=== PATIENT | male | born 1935 | race Caucasian/White ===

== ENCOUNTER 2019-01-06 10:51 | Inpatient (IN) | payer MEDICARE, OTHER, SELFPAY ==
[2019-01-06] VITALS (13 sets, daily range): BP systolic 157–221; BP diastolic 53–100; PULSE 54–77; RESP 11–18; TEMP 36.3–36.8; O2SAT 94–99; BMI 25.8; BMI 25.9
--- NOTE | 2019-01-06 | DI.ECHO.S_ITS ---
[place]---------+ [facility] +---------+ : : [address] : : : : [id number] : : : : Phone: [phone] Echocardiogram Report + + :Name: RODDY BARBOUR Study Date: 01/07/2019 Height: 66 in : :[facility] Exam Location: [facility] Weight: 160 lb : : Gender: Male BSA: 1.8 m2 : :: 1935 Age: 83 yrs BP: 147/69 mmHg: :Reason For Study: Elevated Troponin : :Ordering Physician: HOSPITALIST : :[facility] Performed By: Lashon Page : :Referring: ZAKI DEAL : + + Interpretation Summary The left ventricle is normal in size. The ejection fraction is estimated to be 60-65%. The right ventricle is normal in size and function. There is mild to moderate aortic regurgitation. There is mild tricuspid regurgitation. Right ventricular systolic pressure is estimated to be 30 mmHg plus the clinically estimated CVP which cannot be estimated on this exam. The ascending aorta is mildly enlarged. Procedure: A two-dimensional transthoracic echocardiogram with color flow and Doppler was performed. The study quality was technically adequate. There is no prior echocardiogram noted for this patient. The subcostal views were difficult to obtain and are suboptimal in quality. The patient was in normal sinus rhythm during the exam. Left Ventricle: The left ventricle is normal in size. Proximal septal thickening is noted. There is no echo evidence for significant left ventricular outflow tract obstruction. There is no thrombus. The ejection fraction is estimated to be 60-65%. There are no focal wall motion abnormalities. MV E/A: 1.2 Med Peak E' Fabián: 6.5 cm/sec E/E' med: 13.4. Right Ventricle: The right ventricle is normal in size and function. Atria: The left atrium is severely dilated. Right atrial size is normal. There is no Doppler evidence for an interatrial shunt. Mitral Valve: There is mild mitral annular calcification. There is trace mitral regurgitation. Aortic Valve: The aortic valve is trileaflet. The aortic valve opens well. There is no aortic valve stenosis. There is mild to moderate aortic regurgitation. Tricuspid Valve: The tricuspid valve is normal in structure and function. Right ventricular systolic pressure is estimated to be 30 mmHg plus the clinically estimated CVP which cannot be estimated on this exam. There is mild tricuspid regurgitation. Pulmonic Valve: The pulmonic valve is not well visualized. There is a trace or physiologic amount of pulmonic regurgitation. Great Vessels: The aortic root is normal size. The ascending aorta is mildly enlarged. The pulmonary is not well visualized. The inferior vena cava was not visualized. Pericardium/ Pleura There is no pericardial effusion. There is no pleural effusion. MMode/2D Measurements & Calculations LVIDd: 5.4 cm LVOT diam: 2.3 cm LVIDs: 3.4 cm Ao root diam: 3.7 cm FS: 36.3 % asc Aorta Diam: 4.0 cm EPSS: 0.06 cm IVSd: 0.97 cm LVPWd: 0.99 cm LV kirby. diameter/BSA (cm/m^2): 2.9 LV sys. diameter/BSA (cm/m^2): 1.9 LA A2 area: 28.7 cm2 RA long axis: 5.3 cm LA A4 area: 23.6 cm2 RA area: 17.7 cm2 LA length (vol): 5.7 cm RA vol: 50.1 ml LA vol: 100.9 ml RA : 27.6 ml/m2 LA vol index: 55.4 ml/m2 RVD1 (basal): 3.9 cm TAPSE: 2.3 cm Doppler Measurements & Calculations Ao V2 max: 146.6 cm/sec LVOT Max Fabián: 98.6 cm/sec Ao V2 mean: 103.7 cm/sec LV V1 max P.9 mmHg Ao max P.6 mmHg LV V1 VTI: 19.2 cm Ao mean P.7 mmHg ALBERT(I,D): 2.8 cm2 Ao V2 VTI: 29.3 cm ALBERT(V,D): 2.8 cm2 sev ratio: 0.65 ALBERT indexed to BSA (cm^2/m^2): 1.5 AI P1/2t: 455.8 msec AI dec slope: 276.6 cm/sec2 MV E max fabián: 87.4 cm/sec TR max fabián: 272.6 cm/sec MV A max fabián: 72.6 cm/sec TR max P.7 mmHg MV E/A: 1.2 PA V2 max: 96.0 cm/sec Med Peak E' Fabián: 6.5 cm/sec PA V2 mean: 76.2 cm/sec E/E' med: 13.4 PA mean P.5 mmHg Lat Peak E' Fabián: 11.8 cm/sec PA Accel Time: 0.13 sec E/E' lat: 7.4 E/e' average: 10.4 MV dec time: 0.17 sec MV P1/2t: 50.1 msec MV 2t max fabián: 87.7 cm/sec SV(LVOT): 81.3 ml MVA(2t): 4.4 cm2 Reading Physician:WILLIAM
--- NOTE | 2019-01-06 11:00 | DI.RAD.S_ITS ---
PROCEDURE: XR CHEST 1V INDICATIONS: weakness, stroke vs. HTN emergency TECHNIQUE: One view of the chest was acquired. COMPARISON: [facility], , CHEST 2 VIEW, 02/04/2017, 9:20. FINDINGS: Surgical changes and devices: None. Lungs and pleura: Lungs are clear. No pleural effusions or pneumothorax. Mediastinum: Mediastinal contours appear normal. Heart size is minimally prominent. Bones and chest wall: No suspicious bony lesions. Overlying soft tissues appear unremarkable. IMPRESSION: No acute pulmonary process. Dictated by: Roseanna Hancock M.D. on 01/06/2019 at 10:23 Approved by: Roseanna Hancock M.D. on 01/06/2019 at 10:23
--- NOTE | 2019-01-06 11:03 | DI.CT.S_ITS ---
PROCEDURE: CT HEAD/BRAIN WO CON INDICATIONS: stroke symptoms, NOT TPA candidate TECHNIQUE: Noncontrast 4.5 mm thick angled axial sections acquired from the foramen magnum to the vertex, with coronal and sagittal reformats. For radiation dose reduction, the following was used: automated exposure control, adjustment of mA and/or kV according to patient size. COMPARISON: [facility], CT, BRAIN W/O CONTRAST, 07/10/2007, 11:09. FINDINGS: Image quality: Excellent. CSF spaces: Basal cisterns are patent. No extra-axial fluid collections. The ventricles are symmetric in size and shape. Brain: No intracranial bleeds or masses. There is cerebral volume loss for age, with resultant ventricular and sulcal prominence. There are periventricular and deep white matter chronic small vessel ischemic changes. There is intracranial internal carotid artery atherosclerosis. Skull and face: Calvarium and visualized facial bones appear intact, without suspicious lesions. Sinuses: Visualized sinuses and mastoids are clear. IMPRESSION: 1. No acute intracranial process. 2. Mild to moderate atrophy and chronic microvascular ischemic changes. Dictated by: Roseanna Hancock M.D. on 01/06/2019 at 10:24 Approved by: Roseanna Hancock M.D. on 01/06/2019 at 10:34
[2019-01-06 11:20] LABS: Add Manual Diff / Slide Review NO; Basophils Absolute Auto 0 /uL (0-100); Basophils Percent Auto 0.8 % (0-2); Eosinophils Absolute Auto 100 /uL (0-450); Eosinophils Percent Auto 1.2 % (2-4); Hematocrit 41.3 % (41-53); Hemoglobin 14.1 g/dL (13.5-17.5); Lymphocytes Absolute Auto 1500 /uL (1100-4500); Lymphocytes Percent Auto 27.2 % (25-40); Mean Corpuscular HGB Conc 34.1 % (30-36); Mean Corpuscular Hemoglobin 31.9 PG (26-34); Mean Corpuscular Volume 93.4 fL (80-100); Monocytes Absolute Auto 600 /uL (0-900); Monocytes Percent Auto 11.8 % (3-14); Neutrophils Absolute Auto 3200 /uL (1500-7000); Platelet Count 240 X10^3/uL (150-400); Red Blood Cell Count 4.42 X10^6/uL (4.5-5.9); Red Cell Distribution Width 13.7 % (11.6-14.8); White Blood Cell Count 5.4 X10^3/uL (4.5-11.0)
[2019-01-06 11:26] LABS: Prothrombin Time 11.3 SECONDS (10.1-12.7)
[2019-01-06 11:29] LABS: PTT Partial Thromboplastin Tim 27 SECONDS (26.4-36.2)
--- NOTE | 2019-01-06 11:29 | ED_ITS ---
HPI - General Adult General Chief complaint: Hypertension Stated complaint: SENT PT OVER TO ER Time Seen by Provider: 01/06/19 10:57 Source: patient Mode of arrival: ambulatory Limitations: no limitations History of Present Illness HPI narrative: 83-year-old male nonsmoker with history of hypertension and hyperlipidemia presents at the request of his primary care provider for the evaluation of concerning neurologic symptoms including some trouble finding words, confusion, cloudy thoughts and possibly a weak right leg. In the office the patient's blood pressure was found to be 200. He was sent to the emergency department for further evaluation. The patient denies any headache or blurred vision, he is having no current speech problems. He denies any numbness, tingling or weakness of his extremities. He has no chest pain, shortness of breath or abdominal pain. He does have some vague back pain. He hasn't felt great in a few weeks, but after an episode of speech difficulty on Saturday which was witnessed by his daughter he called his PCP whom got him in promptly. Related Data Home Medications Medication Instructions Recorded Confirmed CoQ-10 1 cap PO DAILY 01/06/19 01/06/19 Vitamin B-12 1 tab SUBLINGUAL DAILY 01/06/19 01/06/19 Vitamin D3 1 cap PO DAILY 01/06/19 01/06/19 lisinopril-hydrochlorothiazide 1 tab PO DAILY 01/06/19 01/06/19 omega 9-rlk-hpa-fish oil [Fish Oil] 3,000 mg PO DAILY 01/06/19 01/06/19 rosuvastatin [Crestor] 5 mg PO DAILY 01/06/19 01/06/19 Allergies Allergy/AdvReac Type Severity Reaction Status Date / Time No Known Drug Allergies Allergy Verified 01/06/19 11:00 Review of Systems Constitutional Denies chills, Reports fatigue, Denies fever(s), Denies lethargy and Reports weakness Eyes Denies change in vision, Denies eye discharge, Denies irritation and Denies loss of vision ENT Ears, Nose, Mouth, and Throat: Denies change in voice, Denies neck pain and Denies sore throat Cardiovascular Denies chest pain, Denies irregular heart rhythm, Denies lightheadedness, Denies palpitations, Denies dyspnea, Denies dyspnea on exertion and Denies orthopnea Respiratory Denies cough, Denies dyspnea, Denies dyspnea on exertion and Denies wheezing Gastrointestinal Gastrointestinal: Denies abdominal pain, Denies change in bowel habits, Denies diarrhea, Denies nausea and Denies vomiting Genitourinary Denies hematuria, Denies flank pain, Denies urinary incontinence and Denies urinary urgency Musculoskeletal Denies neck pain Integumentary/Breasts Denies pruritus, Denies erythema, Denies rash and Denies wounds Neurologic Reports abnormal speech, Reports confusion, Denies loss of vision and Reports weakness Psychiatric Denies anxiety, Reports confusion, Denies depression, Denies homicidal ideation and Denies suicidal ideation Endocrine Reports fatigue and Denies palpitations Hematologic/Lymphatic Denies easy bruising Allergic/Immunologic Denies wheezing PFSH Social History Smoking Status: Never smoker Social History Smoking Status: Never smoker Exam Narrative Exam Narrative: GENERAL: 83-year-old male appears younger than stated age This is a well-nourished, well-developed patient, in mild distress. HEAD: Atraumatic. Normocephalic. No temporal or scalp tenderness. EYES: Pupils equal round and reactive. Extraocular motions intact. No scleral icterus. No injection or drainage. ENT: Nose without bleeding, purulent drainage or septal hematoma. Throat without erythema, tonsillar hypertrophy or exudate. Uvula midline. Airway patent. NECK: Trachea midline. No JVD or lymphadenopathy. Supple, nontender, no meningeal signs. CARDIOVASCULAR: Regular rate and rhythm without murmurs, gallops, or rubs. RESPIRATORY: Clear to auscultation. Breath sounds equal bilaterally. No wheezes, rales, or rhonchi. GASTROINTESTINAL: Abdomen soft, non-tender, nondistended. No hepato- splenomegaly, or palpable masses. No guarding. EXTREMITIES: No clubbing, cyanosis, or edema. No joint tenderness, effusion, or edema noted. BACK: Nontender without deformity or crepitance. No flank tenderness. NEURO: AOx3. SKIN: No rash or erythema. Initial Vital Signs Initial Vital Signs: Vital Signs Temperature 98.1 F 01/06/19 11:01 Pulse Rate 68 01/06/19 11:01 Respiratory Rate 18 01/06/19 11:01 Blood Pressure 221/62 H 01/06/19 11:01 Pulse Oximetry 96 01/06/19 11:01 Scores NIH Stroke Scale Level of Conciousness: Alert, keenly responsive Ask month/age: Answers both questions correctly. Open/close eyes, close hand: Performs both tasks correctly Best gaze horizontal: Normal Visual desouza: No visual loss Facial palsy: Normal symetrical movement Left arm drift: No drift for full 10 sec Right arm drift: No drift for full 10 sec Left leg drift: No drift for full 10 sec Right leg drift: No drift for full 10 sec Limb ataxia: Absent Sensory on face/arms/legs: Normal, no sensory loss Best language: No aphasia, normal Dysarthria: Normal Extinction or inattention: No abnormality Total NIH Stroke scale score: 0 Course Orders Ordered: ED Orders 01/06/19 11:00 XR chest 1V Stat 01/06/19 11:01 EKG-12 Lead Stat 01/06/19 11:03 CT head/brain wo con Stat 01/06/19 11:10 B Type Natriuretic Peptide Stat Basic Metabolic Panel Stat Complete Blood Count AUTO DIFF Stat Partial Thromboplastin Time Stat Prothrombin Time INR Stat Troponin I Stat 01/06/19 12:08 Potassium Stat Troponin I Stat Urine Culture Stat Urine Drug Screen, Rapid Stat Urine Microscopic Stat 01/06/19 13:08 Magnesium Stat Sodium Chloride (Normal Saline 0.9%) 1,000 mls @ 150 mls/hr IV CONT GABBY Last Admin: 01/06/19 11:35 Dose: 150 mls/hr Potassium Chloride 40 meq/ (Sodium Chloride) 520 mls @ 130 mls/hr IV NOW ONE Stop: 01/06/19 15:42 Last Admin: 01/06/19 12:08 Dose: 130 mls/hr Discontinued Medications Labetalol HCl (Trandate) 10 mg IV NOW ONE Stop: 01/06/19 11:43 Last Admin: 01/06/19 11:47 Dose: 10 mg Potassium Chloride (Potassium Chloride) 40 meq PO NOW ONE Stop: 01/06/19 11:44 Last Admin: 01/06/19 11:49 Dose: 40 meq Consultations Consultation #1: Discussed patient with the hospitalist who requests I consult w [facility] given elevated troponin prior to admitting patient here Consultation #2: Call to Cardiology at [facility] to discuss patient's elevated troponin. Dr. Mike suggest that the elevated troponin is most likely secondary to hypertensive emergency and that at this point focus is on hypokalemia. His recommendation is to continue to monitor blood pressure, troponin and potassium as well as ordering an echocardiogram. If the patient has any more classic cardiac findings or elevated troponins once echocardiogram was performed and potassium has normalized they would consider intervention. Vital Signs - 8 hr 01/06/19 11:01 01/06/19 11:34 01/06/19 11:47 Temperature 98.1 F Pulse Rate 68 74 77 Respiratory Rate 18 18 Blood Pressure 221/62 H 203/81 H Blood Pressure [Right Arm] 203/81 H Pulse Oximetry 96 99 01/06/19 12:00 01/06/19 12:02 01/06/19 12:30 Temperature Pulse Rate 56 L 59 L 54 L Respiratory Rate 11 L 14 Blood Pressure 159/72 H Blood Pressure [Right Arm] 159/72 H 179/80 H Pulse Oximetry 98 97 01/06/19 13:00 01/06/19 13:30 Temperature Pulse Rate 54 L 54 L Respiratory Rate 16 14 Blood Pressure Blood Pressure [Right Arm] 170/83 H 176/77 H Pulse Oximetry 99 99 Medical Decision Making Lab Data Result diagrams: 01/06/19 11:10 01/06/19 12:08 Lab Results 01/06/19 01/06/19 01/06/19 Range/Units 11:10 11:10 11:10 WBC 5.4 (4.5-11.0) X10^3/uL RBC 4.42 L (4.5-5.9) X10^6/uL Hgb 14.1 (13.5-17.5) g/dL Hct 41.3 (41-53) % MCV 93.4 (80-100) fL MCH 31.9 (26-34) PG MCHC 34.1 (30-36) % RDW 13.7 (11.6-14.8) % Plt Count 240 (150-400) X10^3/uL Neut % (Auto) 59.0 (50-75) % Lymph % (Auto) 27.2 (25-40) % [place] % (Auto) 11.8 (3-14) % Eos % (Auto) 1.2 L (2-4) % Baso % (Auto) 0.8 (0-2) % Neut # (Auto) 3200 (8474-4890) /uL Lymph # (Auto) 1500 (6341-5395) /uL [place] # (Auto) 600 (0-900) /uL Eos # (Auto) 100 (0-450) /uL Baso # (Auto) 0 (0-100) /uL PT 11.3 (10.1-12.7) SECONDS INR 1.0 (0.9-1.3) APTT 27 (26.4-36.2) SECONDS Sodium 142 (137-145) mmol/L Potassium 1.4 L* (3.4-5.1) mmol/L Chloride 86 L (98-107) mmol/L Carbon Dioxide 47 H* (22-32) mmol/L BUN 19 (9-20) mg/dL Creatinine 0.90 (0.66-1.25) mg/dL Estimated GFR > 60.0 (>60) mL/min BUN/Creatinine Ratio 21.1 (6-22) Glucose 92 (80-110) mg/dL Calcium 9.1 (8.4-10.2) mg/dL Troponin I 0.370 H* (0.01-0.034) ng/mL B-Natriuretic Peptide 221 H (<100) Urine RBC (0-5/HPF) Urine WBC (0-5/HPF) Ur Squamous Epith Cells Amorphous Sediment Urine Bacteria (None) Urine Mucus (Negative) Ur Culture Indicated? Urine Opiates Screen (Negative) Ur Oxycodone Screen (Negative) Urine Methadone Screen (Negative) Ur Barbiturates Screen (Negative) U Tricyclic Antidepress (Negative) Ur Phencyclidine Scrn (Negative) Ur Amphetamines Screen (Negative) U Methamphetamines Scrn (Negative) Ur MDMA Scrn (Ecstasy) (Negative) U Benzodiazepines Scrn (Negative) Urine Cocaine Screen (Negative) U Marijuana (THC) Screen (Negative) 01/06/19 01/06/19 01/06/19 Range/Units 12:08 12:08 12:08 WBC (4.5-11.0) X10^3/uL RBC (4.5-5.9) X10^6/uL Hgb (13.5-17.5) g/dL Hct (41-53) % MCV (80-100) fL MCH (26-34) PG MCHC (30-36) % RDW (11.6-14.8) % Plt Count (150-400) X10^3/uL Neut % (Auto) (50-75) % Lymph % (Auto) (25-40) % [place] % (Auto) (3-14) % Eos % (Auto) (2-4) % Baso % (Auto) (0-2) % Neut # (Auto) (3883-0245) /uL Lymph # (Auto) (7836-0023) /uL [place] # (Auto) (0-900) /uL Eos # (Auto) (0-450) /uL Baso # (Auto) (0-100) /uL PT (10.1-12.7) SECONDS INR (0.9-1.3) APTT (26.4-36.2) SECONDS Sodium (137-145) mmol/L Potassium 1.8 L* (3.4-5.1) mmol/L Chloride (98-107) mmol/L Carbon Dioxide (22-32) mmol/L BUN (9-20) mg/dL Creatinine (0.66-1.25) mg/dL Estimated GFR (>60) mL/min BUN/Creatinine Ratio (6-22) Glucose (80-110) mg/dL Calcium (8.4-10.2) mg/dL Troponin I 0.373 H* (0.01-0.034) ng/mL B-Natriuretic Peptide (<100) Urine RBC 1-5/hpf (0-5/HPF) Urine WBC 10-30/hpf H (0-5/HPF) Ur Squamous Epith Cells 0-1 /hpf Amorphous Sediment 1+ Urine Bacteria Many (>30) H (None) Urine Mucus 1+ H (Negative) Ur Culture Indicated? Specimen cultured Urine Opiates Screen Negative (Negative) Ur Oxycodone Screen Negative (Negative) Urine Methadone Screen Negative (Negative) Ur Barbiturates Screen Negative (Negative) U Tricyclic Antidepress Negative (Negative) Ur Phencyclidine Scrn Negative (Negative) Ur Amphetamines Screen Negative (Negative) U Methamphetamines Scrn Negative (Negative) Ur MDMA Scrn (Ecstasy) Negative (Negative) U Benzodiazepines Scrn Negative (Negative) Urine Cocaine Screen Negative (Negative) U Marijuana (THC) Screen Negative (Negative) Urine Dip Bedside Urine Glucose Negative Bedside Urine Bilirubin - Negative Bedside Urine Ketone ++ 40 Urine Specific Kiefer 1.010 Bedside Urine Occult Blood +/- Bedside Urine pH 7.5 Bedside Urine Protein +/- 15 Bedside Urine Urobilinogen - Negative Bedside Urine Nitrite - Negative Bedside Urine Leukocytes +/- 15 Esterase Point of care testing: Urine Dip Bedside Urine Glucose Negative Bedside Urine Bilirubin - Negative Bedside Urine Ketone ++ 40 Urine Specific Kiefer 1.010 Bedside Urine Occult Blood +/- Bedside Urine pH 7.5 Bedside Urine Protein +/- 15 Bedside Urine Urobilinogen - Negative Bedside Urine Nitrite - Negative Bedside Urine Leukocytes +/- 15 Esterase Critical Care Time Critical Care Time: Yes Total Critical Care Time: 30 Attestation: The high probability of a clinically significant, sudden or life threatening deterioration of the [cardiovascular] system(s) required my full and direct attention, intervention and personal management. The aggregate critical care time was [30] minutes. This time is in addition to time spent performing reported procedures but includes the following: [x] Data Review and interpretation [x] Patient assessment and monitoring of vital signs [x] Documentation [x] Medication orders and management Discharge Plan Departure Patient Disposition: Admitted As Inpatient Clinical Impression: Acute hypokalemia, Elevated troponin I level Hypertension Qualifiers: Hypertension type: essential hypertension Qualified Code(s): I10 - Essential (primary) hypertension Admit Date/Time: 01/06/19 14:28 Admit Provider: Verónica Mcdaniels
[2019-01-06 11:31] LABS: BUN Creatinine Ratio 21.1 (6-22); Blood Urea Nitrogen 19 mg/dL (9-20); Calcium 9.1 mg/dL (8.4-10.2); Chloride 86 mmol/L (98-107); Estimated Glomerular Filt Rate > 60.0 mL/min (>60); Glucose 92 mg/dL (80-110); HEMOLYSIS < 15 (0-50); Sodium 142 mmol/L (137-145)
[2019-01-06] MEDS: SODIUM CHLORIDE 0.9% 1,000 ML 150 ML IV (11:35)
[2019-01-06 11:42] LABS: B Type Natriuretic Peptide 221 (<100); Carbon Dioxide 47 mmol/L (22-32); Potassium 1.4 mmol/L (3.4-5.1)
[2019-01-06] MEDS: LABETALOL 20 MG/4 ML SYRINGE 10 MG IV (11:47)
[2019-01-06] MEDS: POTASSIUM CHLORIDE 20 MEQ/15 ML UDC 40 MEQ PO (11:49)
[2019-01-06] MEDS: POTASSIUM CHLORIDE 40 MEQ in SODIUM CHLORIDE 0.9% 500 ML 130 ML IV ×2 (12:08→19:27)
[2019-01-06 13:22] LABS: Urine Amphetamines Negative (Negative); Urine Barbiturates Negative (Negative); Urine Benzodiazepines Negative (Negative); Urine Cocaine Negative (Negative); Urine MDMA Negative (Negative); Urine Methadone Negative (Negative); Urine Methamphetamines Negative (Negative); Urine Morphine/Opi cutoff 2000 Negative (Negative); Urine Oxycodone Negative (Negative); Urine Phencyclidine Negative (Negative); Urine Tetrahydrocannabinol Negative (Negative); Urine Tricyclic Antidepressant Negative (Negative)
[2019-01-06 13:25] LABS: Amorphous Sediment Urine 1+; Bacteria Urine Many (>30); Culture Indicated Urine Specimen Cultured; Mucus Urine 1+ (Negative); RBC Urine 1-5/HPF (0-5/HPF); Squamous Epithelial Cell Urine 0-1 /HPF; WBC Urine 10-30/HPF (0-5/HPF)
[2019-01-06 13:32] LABS: HEMOLYSIS 15 (0-50)
[2019-01-06 13:37] LABS: Potassium 1.8 mmol/L (3.4-5.1)
[2019-01-06 13:49] LABS: Troponin I 0.373 ng/mL (0.01-0.034)
[2019-01-06 14:30] LABS: Magnesium 2.5 mg/dL (1.6-2.3)
--- NOTE | 2019-01-06 17:36 | P.HP_ITS ---
History of Present Illness Date Patient Seen: 01/06/19 Chief complaint: SENT PT OVER TO ER Narrative: Patient is a 83-year-old male previously healthy except for a history of hypertension hyperlipidemia and low back pain. Patient is fairly active and is in usual good health. About 5 weeks ago the patient developed upper respiratory infection. He had significant cough and shortness of breath. His symptoms resolved 2 weeks ago. He was seen in clinic in November and started on azithromycin benzoate and albuterol which improved his symptoms significantly. Although his upper respiratory symptoms improved he continued to have a poor appetite. He has since lost some weight although he was not trying to. Patient reports he just did not feel like he had a good sensation of taste. And was unmotivated to eat. The patient reports that on Saturday 2 days prior to add wished admission he was very weak. He had difficulty getting his words out. He was unable to ambulate because of generalized weakness. He denied any shortness of breath or chest pain. He had no nausea or vomiting. He denies any dysuria hematuria or pyuria. Patient reports history of prostate cancer and has frequent urination. He has had no night sweats or chills. He has not vomited blood. Had no bright red blood per rectum or black stool. Patient does report arthralgias which is chronic. He complained of pain in the right groin right leg area. That pain has improved. He also reports some intermittent low back pain which has also improved. Patient was seen and evaluated in the emergency room. He was found to have a markedly low potassium at 1.4. He was hypertensive with a blood pressure systolic of over 200. In addition his initial troponin was elevated at 0.37 and repeat remain the same. Patient is admitted at this time for further evaluation. Patient underwent a head CT in the emergency room which was e ssentially negative. Chest x-ray was negative for infiltrates as well. Patient History Medical History Hyperlipidemia (Acute) Hypertension (Acute) Low back pain (Acute) Prostate cancer (Acute) Surgical History S/P TURP (Acute) Family History Father Dementia Social History household members: spouse Smoking Status: Never smoker alcohol intake: former Family & Social History Family History Father Dementia Social History: household members spouse Prior Living Arrangements House Safety & Behavioral: Feels Safe in Current Yes Environment Been Physically Hurt or No Threatened By a Person Suicidal Ideation Description None Suicide Plan Description No Plan Tobacco & Substance use: Smoking Status Never smoker alcohol intake former Substance Use Type does not use Meds Home Medications Medication Instructions Recorded Confirmed Type CoQ-10 1 cap PO DAILY 01/06/19 01/06/19 History Vitamin B-12 1 tab SUBLINGUAL DAILY 01/06/19 01/06/19 History Vitamin D3 1 cap PO DAILY 01/06/19 01/06/19 History lisinopril-hydrochlorothiazide 1 tab PO DAILY 01/06/19 01/06/19 History omega [id number] oil [Fish Oil] 3,000 mg PO DAILY 01/06/19 01/06/19 History rosuvastatin [Crestor] 5 mg PO DAILY 01/06/19 01/06/19 History Allergies Allergy/AdvReac Type Severity Reaction Status Date / Time No Known Drug Allergies Allergy Verified 01/06/19 11:00 Review of Systems Review of Systems All systems reviewed & are unremarkable except as noted in HPI and below Exam Vital Signs (past 8 hours): - 01/06/19 11:01 01/06/19 11:34 01/06/19 11:47 Temperature 98.1 F Pulse Rate 68 74 77 Respiratory Rate 18 18 Blood Pressure 221/62 H 203/81 H Blood Pressure [Right Arm] 203/81 H Pulse Oximetry 96 99 01/06/19 12:00 01/06/19 12:02 01/06/19 12:30 Temperature Pulse Rate 56 L 59 L 54 L Respiratory Rate 11 L 14 Blood Pressure 159/72 H Blood Pressure [Right Arm] 159/72 H 179/80 H Pulse Oximetry 98 97 01/06/19 13:00 01/06/19 13:30 01/06/19 15:00 Temperature Pulse Rate 54 L 54 L 59 L Respiratory Rate 16 14 17 Blood Pressure Blood Pressure [Right Arm] 170/83 H 176/77 H 187/88 H Pulse Oximetry 99 99 99 01/06/19 16:00 Temperature 97.3 F L Pulse Rate 60 Respiratory Rate 16 Blood Pressure 207/100 H Blood Pressure [Right Arm] Pulse Oximetry 94 Oxygen Delivery Method Room Air Oxygen Flow Rate 1 Narrative Exam Narrative: Pleasant gentleman resting comfortably in no obvious distress HEENT: Normocephalic atraumatic, oropharynx reveals occasional white plaques on the lateral portion of the tongue. Neck is supple. There is no appreciable adenopathy Lungs: Clear to auscultation Cardiac exam: Regular rate and rhythm normal S1-S2 Abdomen: Soft nontender nondistended, no hepatosplenomegaly noted Extremities: 1+ edema on the right 2+ pulses bilaterally Skin exam no rash Neuro exam: Cranial nerves 2-12 are intact strength is symmetric and equal at 5/5, sensation is grossly intact, reflexes are brisk and equal, gait is not ass essed speech is fluent patient is clear and coherent, there are no delusion or hallucinations. Objective Labs Result Diagrams: 01/06/19 11:10 01/06/19 12:08 Labs: Laboratory Results - last 24 hr 01/06/19 01/06/19 01/06/19 11:10 11:10 11:10 WBC 5.4 RBC 4.42 L Hgb 14.1 Hct 41.3 MCV 93.4 MCH 31.9 MCHC 34.1 RDW 13.7 Plt Count 240 Neut % (Auto) 59.0 Lymph % (Auto) 27.2 [place] % (Auto) 11.8 Eos % (Auto) 1.2 L Baso % (Auto) 0.8 Neut # (Auto) 3200 Lymph # (Auto) 1500 [place] # (Auto) 600 Eos # (Auto) 100 Baso # (Auto) 0 PT 11.3 INR 1.0 APTT 27 Sodium 142 Potassium 1.4 L* Chloride 86 L Carbon Dioxide 47 H* BUN 19 Creatinine 0.90 Estimated GFR > 60.0 BUN/Creatinine Ratio 21.1 Glucose 92 Calcium 9.1 Magnesium Troponin I 0.370 H* B-Natriuretic Peptide 221 H Urine RBC Urine WBC Ur Squamous Epith Cells Amorphous Sediment Urine Bacteria Urine Mucus Ur Culture Indicated? Urine Opiates Screen Ur Oxycodone Screen Urine Methadone Screen Ur Barbiturates Screen U Tricyclic Antidepress Ur Phencyclidine Scrn Ur Amphetamines Screen U Methamphetamines Scrn Ur MDMA Scrn (Ecstasy) U Benzodiazepines Scrn Urine Cocaine Screen U Marijuana (THC) Screen 01/06/19 01/06/1901/06/19 12:08 12:08 12:08 WBC RBC Hgb Hct MCV MCH MCHC RDW Plt Count Neut % (Auto) Lymph % (Auto) [place] % (Auto) Eos % (Auto) Baso % (Auto) Neut # (Auto) Lymph # (Auto) [place] # (Auto) Eos # (Auto) Baso # (Auto) PT INR APTT Sodium Potassium 1.8 L* Chloride Carbon Dioxide BUN Creatinine Estimated GFR BUN/Creatinine Ratio Glucose Calcium Magnesium Troponin I 0.373 H* B-Natriuretic Peptide Urine RBC 1-5/hpf Urine WBC 10-30/hpf H Ur Squamous Epith Cells 0-1 /hpf Amorphous Sediment 1+ Urine Bacteria Many (>30) H Urine Mucus 1+ H Ur Culture Indicated? Specimen cultured Urine Opiates Screen Negative Ur Oxycodone Screen Negative Urine Methadone Screen Negative Ur Barbiturates Screen Negative U Tricyclic Antidepress Negative Ur Phencyclidine Scrn Negative Ur Amphetamines Screen Negative U Methamphetamines Scrn Negative Ur MDMA Scrn (Ecstasy) Negative U Benzodiazepines Scrn Negative Urine Cocaine Screen Negative U Marijuana (THC) Screen Negative 01/06/19 13:08 WBC RBC Hgb Hct MCV MCH MCHC RDW Plt Count Neut % (Auto) Lymph % (Auto) [place] % (Auto) Eos % (Auto) Baso % (Auto) Neut # (Auto) Lymph # (Auto) [place] # (Auto) Eos # (Auto) Baso # (Auto) PT INR APTT Sodium Potassium Chloride Carbon Dioxide BUN Creatinine Estimated GFR BUN/Creatinine Ratio Glucose Calcium Magnesium 2.5 H Troponin I B-Natriuretic Peptide Urine RBC Urine WBC Ur Squamous Epith Cells Amorphous Sediment Urine Bacteria Urine Mucus Ur Culture Indicated? Urine Opiates Screen Ur Oxycodone Screen Urine Methadone Screen Ur Barbiturates Screen U Tricyclic Antidepress Ur Phencyclidine Scrn Ur Amphetamines Screen U Methamphetamines Scrn Ur MDMA Scrn (Ecstasy) U Benzodiazepines Scrn Urine Cocaine Screen U Marijuana (THC) Screen Assessment & Plan (1) Acute hypokalemia: Problem details: Acute hypokalemia, present on admission. Suspect this is related to his prior illness of the URI in addition to hydrochlorothiazide associated with his lisin opril. At this time will replace potassium. Magnesium level is normal. Will continue to monitor closely. Current visit: Yes Status: Acute (2) Type 2 myocardial infarction: Problem details: Patient with elevated troponin in the setting of hypertension. Suspect demand ischemia. Will continue to trend troponin and check cardiac echo. This is present on admission. Current visit: Yes Status: Acute (3) Hypertension: Problem details: Hypertension, chronic markedly elevated at this time. Etiology unclear. Will continue lisinopril, add amlodipine, use IV Trandate at this time. Qualifiers: Hypertension type: essential hypertension Qualified Code(s): I10 - Essential (primary) hypertension Current visit: Yes Status: Acute (4) Weakness: Problem details: Weakness, suspect related to his hypokalemia will ask PT for consultation. Current visit: Yes Status: Acute Assessment & Plan narrative: Right leg pain, with right leg edema. Will obtain duplex ultrasound the right lower extremity rule out DVT. Patient reports he is a full code. Will note that his record accordingly. Quality VTE Deep Vein Thrombosis/Pulmonary Embolism Present on Admission: No
[2019-01-06] MEDS: LISINOPRIL 20 MG TABLET PO (18:00)
[2019-01-06] MEDS: AMLODIPINE 5 MG TABLET PO (18:00)
[2019-01-06] MEDS: CEFTRIAXONE 1 GM/50 ML FROZ.PIGGY IV (18:01)
[2019-01-06] MEDS: NYSTATIN SUSP 500,000 UNIT/5 ML UDC 500000 UNIT PO ×2 (18:01→20:41)
[2019-01-06] MEDS: ENOXAPARIN 40 MG/0.4 ML SYRINGE SUBCUT (18:02)
[2019-01-06] MEDS: ACETAMINOPHEN 325 MG TABLET 650 MG PO (18:05)
[2019-01-06] MEDS: POTASSIUM CHLORIDE 20 MEQ in DEXTROSE 5%-LACTATED RINGERS 1,000 ML 125 MEQ IV (18:12)
[2019-01-06 18:32] LABS: BUN Creatinine Ratio 17.5 (6-22); Blood Urea Nitrogen 14 mg/dL (9-20); Calcium 8.2 mg/dL (8.4-10.2); Chloride 92 mmol/L (98-107); Estimated Glomerular Filt Rate > 60.0 mL/min (>60); Glucose 135 mg/dL (80-110); HEMOLYSIS < 15 (0-50); Sodium 142 mmol/L (137-145)
[2019-01-06 18:36] LABS: Potassium 1.6 mmol/L (3.4-5.1)
[2019-01-06 18:40] LABS: Carbon Dioxide 43 mmol/L (22-32)
[2019-01-06] MEDS: ROSUVASTATIN 10 MG TABLET 5 MG PO (20:41)
--- NOTE | 2019-01-06 22:48 | PC.NURSE ---
1545 - Pt to room from ER. Able to stand and ambulate to room, CGA. Denies lightheadedness. Steady gait. Pt oriented to room and routine. Reports onset of significant fatigue and word find difficulties on Saturday. Sent to ER from clinic. Pt hypertensive, 207/100, denies headache, denies chest pain. C/o dry mouth, tongue with thin white coating. Pt report cough and flu like symptoms over the last month. Seen at clinic and given medication although pt is unable to recall. monitoring tech SR/SB rate 50-60's, with first degree AVB and BBB. 96% on RA. Denies SOB. K-rider infusing. Dr. Mcdaniels notified of pt arrival. Oriented to room, routine and safety. Call light in reach.
[2019-01-07] VITALS (7 sets, daily range): BP systolic 141–155; BP diastolic 52–82; PULSE 54–76; RESP 12–18; TEMP 36.4–37.2; O2SAT 88–97
--- NOTE | 2019-01-07 | DI.CT.S_ITS ---
PROCEDURE: CT ABDOMEN WO/W CON INDICATIONS: adrenal adenoma TECHNIQUE: Noncontrast 3 mm thick sections acquired from the diaphragms to the iliac crests. After the administration of intravenous contrast, 3 mm thick venous-phase and 10-minute delayed images acquired from the diaphragms to the iliac crests. For radiation dose reduction, the following was used: automated exposure control, adjustment of mA and/or kV according to patient size. COMPARISON: None. FINDINGS: Image quality: Excellent. Lung bases: Lung bases are clear. Minimal bilateral pleural thickening. Heart size is normal. Adrenal glands: There is a small, 1 cm low density nodule at the inferior aspect of the right adrenal, likely an adrenal adenoma. The left adrenal is unremarkable. The Solid organs: Liver is normal in size and enhancement. Gallbladder is unremarkable. Biliary system is non dilated. Pancreas enhances normally. Spleen is normal in size and enhancement. Kidneys are normal in size and enhancement. No hydronephrosis or nephrolithiasis. Peritoneum and bowel: Unenhanced bowel loops are normal in caliber and wall thickness. No free fluid or air. Nodes and vessels: No retroperitoneal or mesenteric adenopathy by size criteria. Aorta and inferior vena cava are normal in size. Miscellaneous: No ventral hernias. Bones: No suspicious bony lesions. No vertebral body compression fractures. IMPRESSION: 1. Probable 1 cm inferior right adrenal adenoma. 2. Otherwise unremarkable study. Dictated by: Eliel Giordano M.D. on 01/07/2019 at 9:53 Approved by: Eliel Giordano M.D. on 01/07/2019 at 10:03
--- NOTE | 2019-01-07 | DI.US.S_ITS ---
PROCEDURE: US PERIPH VENOUS LOW EXTREM RT INDICATIONS: EDEMA TECHNIQUE: Real-time imaging, as well as color and pulse Doppler interrogation, were performed of the lower extremity deep veins from the inguinal ligament to the popliteal fossa. COMPARISON: None. FINDINGS: The common femoral, femoral and popliteal veins are normally compressible, and free of intraluminal thrombus. Color and pulse Doppler demonstrate normal phasic intraluminal flow. There is normal augmentation response to distal compression maneuver. IMPRESSION: No DVT found. Dictated by: Spenser Cummings M.D. on 01/07/2019 at 8:26 Approved by: Spenser Cummings M.D. on 01/07/2019 at 8:26
[2019-01-07 00:19] LABS: Chloride 94 mmol/L (98-107); HEMOLYSIS < 15 (0-50); Sodium 142 mmol/L (137-145)
[2019-01-07 00:24] LABS: Potassium 1.6 mmol/L (3.4-5.1)
[2019-01-07] MEDS: POTASSIUM CHLORIDE 40 MEQ in SODIUM CHLORIDE 0.9% 500 ML 130 ML IV (00:36)
[2019-01-07 00:37] LABS: Carbon Dioxide 43 mmol/L (22-32)
[2019-01-07 05:03] LABS: Add Manual Diff / Slide Review NO; Basophils Absolute Auto 0 /uL (0-100); Basophils Percent Auto 0.9 % (0-2); Eosinophils Absolute Auto 100 /uL (0-450); Eosinophils Percent Auto 2.6 % (2-4); Hematocrit 31.8 % (41-53); Lymphocytes Absolute Auto 1400 /uL (1100-4500); Lymphocytes Percent Auto 37.1 % (25-40); Mean Corpuscular HGB Conc 34.6 % (30-36); Mean Corpuscular Hemoglobin 32.1 PG (26-34); Mean Corpuscular Volume 92.8 fL (80-100); Monocytes Absolute Auto 500 /uL (0-900); Monocytes Percent Auto 12.2 % (3-14); Neutrophils Absolute Auto 1800 /uL (1500-7000); Neutrophils Percent Auto 47.2 % (50-75); Platelet Count 184 X10^3/uL (150-400); Red Blood Cell Count 3.42 X10^6/uL (4.5-5.9); White Blood Cell Count 3.8 X10^3/uL (4.5-11.0)
[2019-01-07 05:05] LABS: Alanine Aminotransferase 159 IU/L (21-72); Albumin 2.9 g/dL (3.5-5.0); Albumin Globulin Ratio 1.3 (1.0-2.8); Alkaline Phosphatase 39 U/L (38-126); Aspartate Aminotransferase 137 IU/L (17-59); BUN Creatinine Ratio 16.3 (6-22); Bilirubin Total 0.8 mg/dL (0.2-1.3); Blood Urea Nitrogen 13 mg/dL (9-20); Calcium 7.8 mg/dL (8.4-10.2); Chloride 96 mmol/L (98-107); Estimated Glomerular Filt Rate > 60.0 mL/min (>60); Globulin 2.3 g/dL (1.7-4.1); Glucose 88 mg/dL (80-110); HEMOLYSIS < 15 (0-50); Sodium 142 mmol/L (137-145); Total Protein 5.2 g/dL (6.3-8.2)
[2019-01-07 05:07] LABS: Potassium 1.7 mmol/L (3.4-5.1)
[2019-01-07 05:12] LABS: Carbon Dioxide 42 mmol/L (22-32)
[2019-01-07] MEDS: POTASSIUM CHLORIDE 20 MEQ/15 ML UDC 60 MEQ PO (06:38)
--- NOTE | 2019-01-07 06:55 | PC.NURSE ---
Patient is oriented x4, fatigued, denies chest pain, pressure, or dyspnea. 40meq K+ riders infused overnight, complete at 0530, K+ 1.7 this am, CO2 42, D5LR w/ 20Meq K+ at 125ml/hr resumed. Notified Radha MONAE about labs, orders received to give 60Meq PO potassium and send urine electrolytes.
[2019-01-07 07:36] LABS: Potassium Urine Random 21.5 mmol/L
[2019-01-07 07:38] LABS: Creatinine Urine Random 50.9 mg/dL; Sodium Urine Random 114 mmol/L (30-90)
[2019-01-07 08:37] LABS: Calcium Urine Random 7.4
--- NOTE | 2019-01-07 08:52 | P.PN_ITS ---
Subjective Date Patient Seen: 01/07/19 Interval history: 83 y/o male admitted to the hospital with weakness, hypert ension, and severe hypokalemia. Despite receiving 200 meq of potassium his potassium remains low. He denies shortness of breath or chest pain. He no longer feels weak but has not ambulated. blood pressure improved. Exam Vital Signs (past 8 hours): - 01/07/19 03:51 01/07/19 07:25 Temperature 98.0 F 97.6 F Pulse Rate 54 L 57 L Respiratory Rate 12 12 Blood Pressure 141/52 H 144/66 H Pulse Oximetry 94 96 Oxygen Delivery Method Nasal Cannula Oxygen Flow Rate 2 Narrative Exam Narrative: Pleasant male resting comfortably in no acute distress Lungs: clear to auscultation CV: RRR nl Sl S2 Abd: soft/ non tender/ non distended Ext: no edema Objective Labs Result Diagrams: 01/07/19 04:45 01/07/19 04:45 Labs: Laboratory Results - last 24 hr 01/06/19 01/06/19 01/06/19 11:10 11:10 11:10 WBC 5.4 RBC 4.42 L Hgb 14.1 Hct 41.3 MCV 93.4 MCH 31.9 MCHC 34.1 RDW 13.7 Plt Count 240 Neut % (Auto) 59.0 Lymph % (Auto) 27.2 [place] % (Auto) 11.8 Eos % (Auto) 1.2 L Baso % (Auto) 0.8 Neut # (Auto) 3200 Lymph # (Auto) 1500 [place] # (Auto) 600 Eos # (Auto) 100 Baso # (Auto) 0 PT 11.3 INR 1.0 APTT 27 Sodium 142 Potassium 1.4 L* Chloride 86 L Carbon Dioxide 47 H* BUN 19 Creatinine 0.90 Estimated GFR > 60.0 BUN/Creatinine Ratio 21.1 Glucose 92 Calcium 9.1 Magnesium Total Bilirubin AST ALT Alkaline Phosphatase Troponin I 0.370 H* B-Natriuretic Peptide 221 H Total Protein Albumin Globulin Albumin/Globulin Ratio Urine RBC Urine WBC Ur Squamous Epith Cells Amorphous Sediment Urine Bacteria Urine Mucus Ur Culture Indicated? Ur Random Sodium Ur Random Potassium Ur Random Calcium Urine Creatinine Nasal Screen MRSA (PCR) Urine Opiates Screen Ur Oxycodone Screen Urine Methadone Screen Ur Barbiturates Screen U Tricyclic Antidepress Ur Phencyclidine Scrn Ur Amphetamines Screen U Methamphetamines Scrn Ur MDMA Scrn (Ecstasy) U Benzodiazepines Scrn Urine Cocaine Screen U Marijuana (THC) Screen 01/06/19 01/06/19 01/06/19 12:08 12:08 12:08 WBC RBC Hgb Hct MCV MCH MCHC RDW Plt Count Neut % (Auto) Lymph % (Auto) [place] % (Auto) Eos % (Auto) Baso % (Auto) Neut # (Auto) Lymph # (Auto) [place] # (Auto) Eos # (Auto) Baso # (Auto) PT INR APTT Sodium Potassium 1.8 L* Chloride Carbon Dioxide BUN Creatinine Estimated GFR BUN/Creatinine Ratio Glucose Calcium Magnesium Total Bilirubin AST ALT Alkaline Phosphatase Troponin I 0.373 H* B-Natriuretic Peptide Total Protein Albumin Globulin Albumin/Globulin Ratio Urine RBC 1-5/hpf Urine WBC 10-30/hpf H Ur Squamous Epith Cells 0-1 /hpf Amorphous Sediment 1+ Urine Bacteria Many (>30) H Urine Mucus 1+ H Ur Culture Indicated? Specimen cultured Ur Random Sodium Ur Random Potassium Ur Random Calcium Urine Creatinine Nasal Screen MRSA (PCR) Urine Opiates Screen Negative Ur Oxycodone Screen Negative Urine Methadone Screen Negative Ur Barbiturates Screen Negative U Tricyclic Antidepress Negative Ur Phencyclidine Scrn Negative Ur Amphetamines Screen Negative U Methamphetamines Scrn Negative Ur MDMA Scrn (Ecstasy) Negative U Benzodiazepines Scrn Negative Urine Cocaine Screen Negative U Marijuana (THC) Screen Negative 01/06/19 01/06/19 01/06/19 13:08 15:45 18:15 WBC RBC Hgb Hct MCV MCH MCHC RDW Plt Count Neut % (Auto) Lymph % (Auto) [place] % (Auto) Eos % (Auto) Baso % (Auto) Neut # (Auto) Lymph # (Auto) [place] # (Auto) Eos # (Auto) Baso # (Auto) PT INR APTT Sodium 142 Potassium 1.6 L* Chloride 92 L Carbon Dioxide 43 H* BUN 14 Creatinine 0.80 Estimated GFR > 60.0 BUN/Creatinine Ratio 17.5 Glucose 135 H Calcium 8.2 L Magnesium 2.5 H Total Bilirubin AST ALT Alkaline Phosphatase Troponin I B-Natriuretic Peptide Total Protein Albumin Globulin Albumin/Globulin Ratio Urine RBC Urine WBC Ur Squamous Epith Cells Amorphous Sediment Urine Bacteria Urine Mucus Ur Culture Indicated? Ur Random Sodium Ur Random Potassium Ur Random Calcium Urine Creatinine Nasal Screen MRSA (PCR) Negative for mrsa Urine Opiates Screen Ur Oxycodone Screen Urine Methadone Screen Ur Barbiturates Screen U Tricyclic Antidepress Ur Phencyclidine Scrn Ur Amphetamines Screen U Methamphetamines Scrn Ur MDMA Scrn (Ecstasy) U Benzodiazepines Scrn Urine Cocaine Screen U Marijuana (THC) Screen 01/07/19 01/07/19 01/07/19 00:04 04:45 04:45 WBC 3.8 L RBC 3.42 L Hgb 11.0 L Hct 31.8 L MCV 92.8 MCH 32.1 MCHC 34.6 RDW 14.0 Plt Count 184 Neut % (Auto) 47.2 L Lymph % (Auto) 37.1 [place] % (Auto) 12.2 Eos % (Auto) 2.6 Baso % (Auto) 0.9 Neut # (Auto) 1800 Lymph # (Auto) 1400 [place] # (Auto) 500 Eos # (Auto) 100 Baso # (Auto) 0 PT INR APTT Sodium 142 142 Potassium 1.6 L* 1.7 L* Chloride 94 L 96 L Carbon Dioxide 43 H* 42 H* BUN 13 Creatinine 0.80 Estimated GFR > 60.0 BUN/Creatinine Ratio 16.3 Glucose 88 Calcium 7.8 L Magnesium Total Bilirubin 0.8 AST 137 H ALT 159 H Alkaline Phosphatase 39 Troponin I B-Natriuretic Peptide Total Protein 5.2 L Albumin 2.9 L Globulin 2.3 Albumin/Globulin Ratio 1.3 Urine RBC Urine WBC Ur Squamous Epith Cells Amorphous Sediment Urine Bacteria Urine Mucus Ur Culture Indicated? Ur Random Sodium Ur Random Potassium Ur Random Calcium Urine Creatinine Nasal Screen MRSA (PCR) Urine Opiates Screen Ur Oxycodone Screen Urine Methadone Screen Ur Barbiturates Screen U Tricyclic Antidepress Ur Phencyclidine Scrn Ur Amphetamines Screen U Methamphetamines Scrn Ur MDMA Scrn (Ecstasy) U Benzodiazepines Scrn Urine Cocaine Screen U Marijuana (THC) Screen 01/07/19 01/07/19 01/07/19 07:10 07:10 07:10 WBC RBC Hgb Hct MCV MCH MCHC RDW Plt Count Neut % (Auto) Lymph % (Auto) [place] % (Auto) Eos % (Auto) Baso % (Auto) Neut # (Auto) Lymph # (Auto) [place] # (Auto) Eos # (Auto) Baso # (Auto) PT INR APTT Sodium Potassium Chloride Carbon Dioxide BUN Creatinine Estimated GFR BUN/Creatinine Ratio Glucose Calcium Magnesium Total Bilirubin AST ALT Alkaline Phosphatase Troponin I B-Natriuretic Peptide Total Protein Albumin Globulin Albumin/Globulin Ratio Urine RBC Urine WBC Ur Squamous Epith Cells Amorphous Sediment Urine Bacteria Urine Mucus Ur Culture Indicated? Ur Random Sodium 114 H Ur Random Potassium 21.5 Ur Random Calcium 7.4 Urine Creatinine 50.9 Nasal Screen MRSA (PCR) Urine Opiates Screen Ur Oxycodone Screen Urine Methadone Screen Ur Barbiturates Screen U Tricyclic Antidepress Ur Phencyclidine Scrn Ur Amphetamines Screen U Methamphetamines Scrn Ur MDMA Scrn (Ecstasy) U Benzodiazepines Scrn Urine Cocaine Screen U Marijuana (THC) Screen Assessment & Plan (1) Weakness: Problem details: Weakness, suspect related to his hypokalemia will ask PT for consultation. Current visit: Yes Status: Acute (2) Type 2 myocardial infarction: Problem details: Patient with elevated troponin in the setting of hypertension. Suspect demand ischemia. Will continue to trend troponin and check cardiac echo. This is present on admission. Current visit: Yes Status: Acute (3) Hypertension: Problem details: Hypertension, chronic markedly elevated at this time. Etiology unclear. Will continue lisinopril, add amlodipine, use IV Trandate at this time. Qualifiers: Hypertension type: essential hypertension Qualified Code(s): I10 - Essential (primary) hypertension Current visit: Yes Status: Acute (4) Acute hypokalemia: Problem details: Acute hypokalemia, present on admission. Suspect this is related to his prior illness of the URI in addition to hydrochlorothiazide associated with his lisinopril. At this time will replace potassium. Magnesium level is normal. Will continue to monitor closely. Patient remains hypokalemic which is concerning. Will check CT of Abd/pelvis to r/o adenoma. Will also check serum aldosterone and renin level. These are send out labs and will take 6 days for results. Will continue to replace. Renal ultrasound obtained and is pending. Current visit: Yes Status: Acute Quality VTE Deep Vein Thrombosis/Pulmonary Embolism Present on Admission: No
[2019-01-07] MEDS: POTASSIUM CHLORIDE 80 MEQ in SODIUM CHLORIDE 0.9% 1,000 ML 130 ML IV (09:45)
[2019-01-07] MEDS: AMLODIPINE 5 MG TABLET PO (09:54)
[2019-01-07] MEDS: NYSTATIN SUSP 500,000 UNIT/5 ML UDC 500000 UNIT PO ×2 (09:54→22:19)
[2019-01-07] MEDS: LISINOPRIL 20 MG TABLET PO (09:54)
[2019-01-07 10:03] LABS: Troponin I 0.336 ng/mL (0.01-0.034)
--- NOTE | 2019-01-07 11:05 | PT.IIE ---
Current Diagnoses Hypokalemia (01/06/19) Essential (primary) hypertension (01/06/19) Myocardial infarction type 2 (01/06/19) Weakness (01/06/19) Surgical History (Last Updated 01/06/19 @ 17:31 by Verónica Mcdaniels MD) S/P TURP (Acute) Medical History (Last Updated 01/06/19 @ 17:30 by Verónica Mcdaniels MD) Hyperlipidemia (Acute) Hypertension (Acute) Low back pain (Acute) Prostate cancer (Acute) Physical Therapy Inpatient Evaluation/Re-Eval M1 PT/OT-IP Prior Functional Status Start: 01/07/19 10:37 Freq: NEEDED Status: Active Protocol: Document 01/07/19 10:55 EA (Rec: 01/07/19 10:57 EA [id number]) Medical Review Prior Functional Status Medical History Reviewed Yes Diet/Fluid Consistency Regular Communication Normal, alert, O x 3 Mobility and Gait Indepedent with no limitation Hunts regularly Prior Functional Level (Other details) Love to perform yard works Social History Household Members spouse Living Arrangements House Number of Stairs To Enter/Railing? None identified Home Environment Standard Height Toilet Employment Status Retired Additional Social History Comment Patient likes to hunts regularly Patient does yard work regulalrly Patient does walking > 2 miles M2 PT-IP Current Condition Start: 01/07/19 10:37 Freq: NEEDED Status: Active Protocol: Document 01/07/19 10:38 EA (Rec: 01/07/19 10:55 EA [id number]) Physical Therapy Current Condition Current Condition Evaluation Date 01/07/19 Treatment Diagnosis Severe hypokalemia, Weakness Onset Date 01/04/19 Weight Bearing Status Weight Bearing Status Full Weight Bearing M3 PT-IP Subjective Start: 01/07/19 10:37 Freq: NEEDED Status: Active Protocol: Document 01/07/19 10:38 EA (Rec: 01/07/19 10:55 EA [id number]) Subjective Physical Therapy Visit Type Type Initial Evaluation Visit Start Time 10:00 Visit Stop Time 10:30 Total Visit Minutes 30 Number of TYRE FITTER Visits 0 Physical Therapy Visit Comments Patient Comments Patient received ambulating from BR to his bed independently. Patient agreeable to be evaluated. Patient reports he is supposed to go for hunting this weekend. Patient reports weakness episodes in the last 4 weeks TYRE FITTER. He noted that mostly early in the morning were he had trouble getting up due to full body weakness. He stated that 2 days TYRE FITTER he had 2 hours of heavy yard work ; states his RN grand daughter noted his speech difficulty and that prompted to scheduled him for a doctor visit. Patient denies any chest pain on the last episode of speech problem. Patient Goals Get back to previous level of function M4 PT-IP Mobility and Gait Start: 01/07/19 10:37 Freq: NEEDED Status: Active Protocol: Document 01/07/19 10:38 EA (Rec: 01/07/19 10:55 EA [id number]) PT-Bed Mobility Assessment Supine to Sit Supine to Sit Independent Sit to Supine Sit to Supine Independent Scooting Scooting to Edge of Bed Independent PT-Transfer Assessment Sit to and From Stand Sit to and from Stand Independent Equipment Transfer Assistive Device None Transfers Transfer Destination Bed Toilet Transfer Technique stepping Transfer Ability Level of Assist Independent Standby Assistance Comments Mobility Comments Supervision only during transfers Gait Assessment Gait Gait Assistance Required: Independent Assistive Devices Assistive Device None Gait Deviations General Gait Pattern Within Normal Limits Comments Gait Comments Patient ambulated 120 ft with IV pole to use on right hand with SBA/supervision. Prior to assessment, patient was independent to in/out the BR. BP Before: 146/71, 92bpm BP during 155/70, 116bpm BP after 5 mins: 147/69, 112 bpm PT-Balance Assessment Sitting Balance and Reactions Static Sitting Balance Ability Normal Dynamic Sitting Balance Ability Normal Standing Balance and Reactions Static Standing Balance Ability Normal Dynamic Standing Balance Ability Good M5 PT-IP Objective Assessments Start: 01/07/19 10:37 Freq: NEEDED Status: Active Protocol: Document 01/07/19 10:38 EA (Rec: 01/07/19 10:55 EA [id number]) Orientation Orientation/Cognition Level of Alertness Alert Orientation Name Age Language Function Ability No Deficits Noted Safety Awareness Understands Safety Issues Memory Description No Deficits Noted Gross Range of Motion Upper Extremity ROM Assessment Within Functional Limits Lower Extremity ROM Assessment Within Functional Limits Strength Upper Extremity Strength Assessment Within Functional Limits Lower Extremity Strength Assessment Within Functional Limits Coordination Assessment Gross Coordination Gross Coordination WNL Sensation Assessment Sensation Gross Sensation WNL Light Touch Intact Proprioception (Position) Intact Muscle Tone Comments Muscle Tone Comments Normotonic Other Assessments Other Other Assessments Patient exhibits no limitation as to transfers and mobility. No noted any signs of weakness, instability, and or SOB during and after ambulation. Objective assessment reveals WFL as to ROM, strength, and sitting/ standing balance. Vitals sing were monitored before, during and after with negative results or with normal responses. Patient is not a good candidate for skilled PT at this time. Discharged to PT due to no limitation identified at this time. M6 PT-IP Treatment Start: 01/07/19 10:37 Freq: NEEDED Status: Active Protocol: Document 01/07/19 10:38 EA (Rec: 01/07/19 10:55 EA [id number]) Physical Therapy Treatment Education Education Provided Safety M7 PT-IP Assessment and Plan Start: 01/07/19 10:37 Freq: NEEDED Status: Active Protocol: Document 01/07/19 10:38 EA (Rec: 01/07/19 10:55 EA [id number]) PT Summary Assessment and Plan Potential Status of Condition at Evaluation Stable Frequency of Treatment Frequency Of Treatment Discharge
[2019-01-07 15:10] LABS: BUN Creatinine Ratio 17.1 (6-22); Blood Urea Nitrogen 12 mg/dL (9-20); Calcium 8.4 mg/dL (8.4-10.2); Carbon Dioxide 39 mmol/L (22-32); Chloride 99 mmol/L (98-107); Estimated Glomerular Filt Rate > 60.0 mL/min (>60); Glucose 126 mg/dL (80-110); HEMOLYSIS < 15 (0-50); Sodium 145 mmol/L (137-145)
[2019-01-07 15:12] LABS: Potassium 2.4 mmol/L (3.4-5.1)
[2019-01-07] MEDS: ACETAMINOPHEN 325 MG TABLET 650 MG PO (17:03)
[2019-01-07] MEDS: POTASSIUM CHLORIDE 20 MEQ TAB 60 MEQ PO ×2 (18:21→22:15)
[2019-01-07] MEDS: CEFTRIAXONE 1 GM/50 ML FROZ.PIGGY IV (18:54)
[2019-01-07] MEDS: ENOXAPARIN 40 MG/0.4 ML SYRINGE SUBCUT (19:00)
--- NOTE | 2019-01-07 19:20 | PC.NURSE ---
7170 - Dr. Mcdaniels notified of current lab results. K+ 2.4. Orders obtained. Pt resting in bed. Reports bilateral quad/thigh pain with activity. APAP given. IV saline locked. Discussed PO meds, pt agreeable to take with meal. Call light in reach.
[2019-01-08] VITALS (8 sets, daily range): BP systolic 145–182; BP diastolic 79–97; PULSE 55–67; RESP 10–20; TEMP 36.7–36.9; O2SAT 92–98
[2019-01-08] MEDS: ACETAMINOPHEN 325 MG TABLET 650 MG PO (01:49)
[2019-01-08 05:22] LABS: Alanine Aminotransferase 180 IU/L (21-72); Albumin 2.9 g/dL (3.5-5.0); Albumin Globulin Ratio 1.2 (1.0-2.8); Alkaline Phosphatase 42 U/L (38-126); Aspartate Aminotransferase 151 IU/L (17-59); BUN Creatinine Ratio 13.8 (6-22); Bilirubin Total 0.4 mg/dL (0.2-1.3); Blood Urea Nitrogen 11 mg/dL (9-20); Calcium 8.1 mg/dL (8.4-10.2); Chloride 103 mmol/L (98-107); Estimated Glomerular Filt Rate > 60.0 mL/min (>60); Globulin 2.4 g/dL (1.7-4.1); Glucose 93 mg/dL (80-110); HEMOLYSIS < 15 (0-50); Sodium 146 mmol/L (137-145); Total Protein 5.3 g/dL (6.3-8.2)
[2019-01-08 05:25] LABS: Potassium 2.3 mmol/L (3.4-5.1)
[2019-01-08 05:38] LABS: Carbon Dioxide 39 mmol/L (22-32)
[2019-01-08] MEDS: POTASSIUM CHLORIDE 20 MEQ/15 ML UDC 80 MEQ PO (07:53)
[2019-01-08] MEDS: NYSTATIN SUSP 500,000 UNIT/5 ML UDC 500000 UNIT PO (08:05)
[2019-01-08] MEDS: LISINOPRIL 20 MG TABLET PO (08:06)
[2019-01-08] MEDS: AMLODIPINE 5 MG TABLET PO ×2 (08:06→15:59)
[2019-01-08] MEDS: SODIUM CHLORIDE 0.9% FLUSH 10 ML IV (08:13)
[2019-01-08 09:41] LABS: Magnesium 2.4 mg/dL (1.6-2.3)
[2019-01-08 13:22] LABS: HEMOLYSIS < 15 (0-50); Potassium 3.4 mmol/L (3.4-5.1)
[2019-01-08] MEDS: POTASSIUM CHLORIDE 20 MEQ/15 ML UDC 40 MEQ PO (15:59)
--- NOTE | 2019-01-08 16:02 | P.DS_ITS ---
History of Present Illness Chief complaint: SENT PT OVER TO ER Narrative: Patient is a 83-year-old male previously healthy except for a history of hypertension hyperlipidemia and low back pain. Patient is fairly active and is in usual good health. About 5 weeks ago the patient developed upper respiratory infection. He had significant cough and shortness of breath. His symptoms resolved 2 weeks ago. He was seen in clinic in November and started on azithromycin benzoate and albuterol which improved his symptoms significantly. Although his upper respiratory symptoms improved he continued to have a poor appetite. He has since lost some weight although he was not trying to. Patient reports he just did not feel like he had a good sensation of taste. And was unmotivated to eat. The patient reports that on Saturday 2 days prior to add wished admission he was very weak. He had difficulty getting his words out. He was unable to ambulate because of generalized weakness. He denied any shortness of breath or chest pain. He had no nausea or vomiting. He denies any dysuria hematuria or pyuria. Patient reports history of prostate cancer and has frequent urination. He has had no night sweats or chills. He has not vomited blood. Had no bright red blood per rectum or black stool. Patient does report arthralgias which is chronic. He complained of pain in the right groin right leg area. That pain has improved. He also reports some intermittent low back pain which has also improved. Patient was seen and evaluated in the emergency room. He was found to have a markedly low potassium at 1.4. He was hypertensive with a blood pressure systolic of over 200. In addition his initial troponin was elevated at 0.37 and repeat remain the same. Patient is admitted at this time for further evaluation. Patient underwent a head CT in the emergency room which was essentially negative. Chest x-ray was negative for infiltrates as well. Discharge Providers Date of admission: 01/06/19 14:28 Discharge Date: 01/08/19 Primary care physician: Garfield Monroy MD Consults: 01/06/19 17:22 Consult to Physical Therapy Evaluate & Treat Comment: Physician Instructions: Evaluate and Treat 01/07/19 00:49 Consult to Respiratory Therapy Evaluate & Treat Comment: Physician Instructions: Evaluate and treat Discharge provider: Verónica Mcdaniels MD Summary Discharge Diagnosis: Hypokalemia, present on admission Volume depletion, present on admission Hypertension Hyperlipidemia Urinary tract infection, secondary to Klebsiella Pneumonia Hospital Course: The patient is a 83 y/o male who presented with profound weakness and found to have severe hypokalemia. He required multiple doses for ultimately improvement of his potassium. His blood pressure remained elevated. He was taken off the diuretics and amlodipine was added to his regimen. He underwent a CT of the abdomne which revelaed a 1 cm adenoma. He had an ultrasound of the veins which was negative for DVT. A consult was obtained from the [facility] Nephrology service. They recommended improved blood pressure control at this time. They felt it was very unlikely they he would have hyperaldosteronism. They further suggested additional work up for his hypertension to r/o renovascular hypertension if his blood pressure remained difficult to control. The patient felt better overall and was deemed appropraite for discharge home. The patient's potassium was 3.4 today. He was given an additional 40 meq KCL and will follow up with Dr. Monroy as an outpatient. Status at Discharge Cognitive/behavioral status at discharge: oriented Functional status at discharge: independent ambulation Overall status at discharge: patient is back to baseline Time Spent with Patient Less than 30 minutes Exam Vital Signs (past 8 hours): - 01/08/19 09:00 01/08/19 13:00 01/08/19 15:48 Temperature 98.1 F 98.1 F Pulse Rate 67 60 63 Respiratory Rate 10 L 14 20 Blood Pressure 160/97 H 145/96 H 182/82 H Pulse Oximetry 98 97 98 Oxygen Delivery Method Room Air Oxygen Flow Rate 0 Narrative Exam Narrative: Pleasant male Lungs: clear to auscultation CV: RRR nl Sl S2 Abd: soft/ non tender/ non distended Ext: no edema Objective Labs Result Diagrams: 01/07/19 04:45 01/08/19 13:00 Labs: Laboratory Results - last 24 hr 01/08/19 01/08/19 01/08/19 04:47 04:47 13:00 Sodium 146 H Potassium 2.3 L* 3.4 Chloride 103 Carbon Dioxide 39 H BUN 11 Creatinine 0.80 Estimated GFR > 60.0 BUN/Creatinine Ratio 13.8 Glucose 93 Calcium 8.1 L Magnesium 2.4 H Total Bilirubin 0.4 AST 151 H ALT 180 H Alkaline Phosphatase 42 Total Protein 5.3 L Albumin 2.9 L Globulin 2.4 Albumin/Globulin Ratio 1.2 Discharge Plan Discharge Plan Patient Disposition: Home Discharge Med Rec/Prescriptions Prescriptions: New lisinopril 20 mg Tablet 20 mg PO DAILY Qty: 30 RF: 0 levofloxacin 250 mg tablet 250 mg PO DAILY Qty: 7 RF: 0 amlodipine 10 mg tablet 10 mg PO DAILY Qty: 30 RF: 0 Continued rosuvastatin [Crestor] 5 mg Tablet 5 mg PO DAILY RF: 0 Vitamin D3 1 cap PO DAILY RF: 0 omega 8-fbi-kce-fish oil [Fish Oil] 1,000 mg (120 mg-180 mg) Capsule 3,000 mg PO DAILY RF: 0 CoQ-10 1 cap PO DAILY RF: 0 Vitamin B-12 1 tab Sublingual DAILY RF: 0 Discontinued lisinopril-hydrochlorothiazide 10-12.5 mg tablet 1 tab PO DAILY RF: 0 Follow up/Referrals: Garfield Monroy MD [Primary Care Provider] - Provider Discharge Instructions Diet: Diet as Tolerated and Low-sodium Activity: as tolerated Skin/Wound/Dressing Care Report to your healthcare provider any signs of infection, such as:: chills, fever and night sweats Discharge Data Primary Care Provider: Garfield Monroy V Attending Provider: Verónica Mcdaniels Admit Date/Time: 01/06/19 14:28 Quality VTE Deep Vein Thrombosis/Pulmonary Embolism Present on Admission: No
--- NOTE | 2019-01-08 16:50 | PC.NURSE ---
Pt discharged to home. IVs removed, cannula intact. Tele removed and cleaned. Received extra dose of Amlodipine 5mg po and potassium 40MEQs before discharge. BP 153/80, HR 63. States understanding of all discharge instructions and has all belongings. Will drive self home, MD campos. In not acute distress. Ambulated with MANAGER REVIEW to lobby.
--- NOTE | 2019-01-09 08:11 | CM.DPNOTE ---
Late Entry: Reviewed chart and discussed pt w/ RN yesterday before his DC. Met w/pt, explained role and pt in very good spirits, sitting up in chair. Pt explains he has all he needs at home and is very grateful for all he has, indp at baseline and returned to baseline yesterday. Pt expected no barriers to safe return home. Pt was cleared medically by Dr Mcdaniels yesterday and returned home w/family. NAILA
[2019-01-10 12:37] LABS: Plama Renin, LC/MS/MS 0.24 ng/mL/h (0.25-5.82)
== END 2019-01-08 16:54 | disposition home or self-care (01) | DRG 640 ==
LOC: ED 14:27 → AC 14:36 → ICU 01-07 12:11 → AC 01-08 16:28 → ICU 01-08 16:28
PROVIDERS: Nurse Practitioner Gerontology; Admitting Provider Internal Medicine; Emergency Provider Emergency Medicine; Family Provider Internal Medicine; PCP Internal Medicine; Visit Provider Internal Medicine
DX: E87.6 Hypokalemia (principal); I21.A1 Myocardial infarction type 2; R47.01 Aphasia; N39.0 Urinary tract infection, site not specified; I10 Essential (primary) hypertension; E78.5 Hyperlipidemia, unspecified; E86.9 Volume depletion, unspecified; B96.1 Klebsiella pneumoniae [K. pneumoniae] as the cause of diseases classified elsewhere; R41.0 Disorientation, unspecified
CPT/HCPCS: 36415; 36591; 70450; 71045; 74170; 80048; 80051; 80053; 80305; 81003; 81015; 82088; 82340; 82570; 83735; 83880; 84132; 84133; 84244; 84300; 84484; 85025; 85610; 85730; 87077; 87086; 87186; 87797; 93005; 93306; 93971; 96361; 96374; 97161; 97530; 99283; 99285; J1650; J3480; J7121; Q9967

== ENCOUNTER → 2019-01-12 15:11 | Outpatient (REF) | payer MEDICARE, OTHER, SELFPAY ==
[2019-01-06 15:57] VITALS: BMI 25.9
== END ==
LOC: LAB 15:11
PROVIDERS: Family Provider Internal Medicine; PCP Internal Medicine; Visit Provider Internal Medicine
DX: E87.6 Hypokalemia (principal)
CPT/HCPCS: 82088

== ENCOUNTER → 2019-01-14 09:20 | Outpatient (CLI) | payer MEDICARE, OTHER, SELFPAY ==
[2019-01-06 15:57] VITALS: BMI 25.9
[2019-01-14 10:52] LABS: HEMOLYSIS < 15 (0-50); Potassium 4.1 mmol/L (3.4-5.1)
== END ==
PROVIDERS: Family Provider Internal Medicine; PCP Internal Medicine; Visit Provider Internal Medicine
DX: R41.3 Other amnesia (principal)
CPT/HCPCS: 36415; 84132

== ENCOUNTER → 2019-01-21 15:16 | Outpatient (CLI) | payer MEDICARE, OTHER, SELFPAY ==
[2019-01-06 15:57] VITALS: BMI 25.9
[2019-01-21 16:32] LABS: Blood Urea Nitrogen 22 mg/dL (9-20); Calcium 10.1 mg/dL (8.4-10.2); Carbon Dioxide 24 mmol/L (22-32); Chloride 108 mmol/L (98-107); Estimated Glomerular Filt Rate > 60.0 mL/min (>60); Glucose 110 mg/dL (80-110); HEMOLYSIS < 15 (0-50); Potassium 5.1 mmol/L (3.4-5.1); Sodium 142 mmol/L (137-145)
[2019-01-24 09:27] LABS: Renin Activity 18.36 ng/mL/h (0.25-5.82)
== END ==
PROVIDERS: Family Provider Internal Medicine; PCP Internal Medicine
DX: E26.09 Other primary hyperaldosteronism (principal)
CPT/HCPCS: 36415; 80048; 82088; 84244

== ENCOUNTER → 2019-02-18 14:04 | Outpatient (CLI) | payer MEDICARE, OTHER, SELFPAY ==
[2019-01-06 15:57] VITALS: BMI 25.9
[2019-02-18 16:12] LABS: Blood Urea Nitrogen 17 mg/dL (9-20); Calcium 9.8 mg/dL (8.4-10.2); Carbon Dioxide 25 mmol/L (22-32); Chloride 106 mmol/L (98-107); Estimated Glomerular Filt Rate > 60.0 mL/min (>60); Glucose 81 mg/dL (80-110); HEMOLYSIS < 15 (0-50); Sodium 140 mmol/L (137-145)
[2019-02-22 20:14] LABS: Aldosterone/Renin Activity Rat 0.1 Ratio (0.9-28.9); Plama Renin, LC/MS/MS 18.45 ng/mL/h (0.25-5.82)
== END ==
PROVIDERS: PCP Internal Medicine; Visit Provider Internal Medicine Endocrinology, Diabetes & Metabolism
DX: E26.09 Other primary hyperaldosteronism (principal)
CPT/HCPCS: 36415; 80048; 82088; 84244

== ENCOUNTER → 2019-04-09 09:17 | Outpatient (CLI) | payer MEDICARE, OTHER, SELFPAY ==
[2019-01-06 15:57] VITALS: BMI 25.9
[2019-04-09 09:46] LABS: Blood Urea Nitrogen 25 mg/dL (9-20); Calcium 9.9 mg/dL (8.4-10.2); Carbon Dioxide 29 mmol/L (22-32); Chloride 105 mmol/L (98-107); Estimated Glomerular Filt Rate > 60.0 mL/min (>60); Glucose 93 mg/dL (80-110); HEMOLYSIS < 15 (0-50); Potassium 4.4 mmol/L (3.4-5.1); Sodium 141 mmol/L (137-145)
== END ==
PROVIDERS: Visit Provider Internal Medicine
DX: E87.6 Hypokalemia (principal)
CPT/HCPCS: 36415; 80048

== ENCOUNTER → 2019-04-10 11:47 | Outpatient (CLI) | payer MEDICARE, OTHER, SELFPAY ==
[2019-01-06 15:57] VITALS: BMI 25.9
--- NOTE | 2019-04-10 | DI.US.S_ITS ---
PROCEDURE: US CAROTID DOPPLER BI INDICATIONS: TIA TECHNIQUE: Color and pulse Doppler interrogation was performed of both carotid systems, with image documentation and velocity measurements. COMPARISON: None. FINDINGS: Stenosis calculations are based on SRU (Society of Radiologists in Ultrasound) criteria. The flow velocities and the arterial waveforms are normal within both carotid arterial systems. Atherosclerotic plaque is seen on both sides. The estimated degree of internal carotid artery stenosis is less than 50%. Antegrade flow is confirmed within both vertebral arteries. IMPRESSION: No hemodynamically significant stenosis is seen. Atherosclerotic plaque is noted bilaterally. Dictated by: Jacques Lindo M.D. on 04/10/2019 at 12:09 Approved by: Jacques Lindo M.D. on 04/10/2019 at 12:10
== END ==
PROVIDERS: Visit Provider Internal Medicine
DX: I65.23 Occlusion and stenosis of bilateral carotid arteries (principal)
CPT/HCPCS: 93880

== ENCOUNTER → 2019-06-24 08:36 | Outpatient (CLI) | payer MEDICARE, OTHER, SELFPAY ==
[2019-01-06 15:57] VITALS: BMI 25.9
[2019-06-24 09:46] LABS: BUN Creatinine Ratio 24.5 (6-22); Blood Urea Nitrogen 27 mg/dL (9-20); Carbon Dioxide 27 mmol/L (22-32); Chloride 106 mmol/L (98-107); Estimated Glomerular Filt Rate > 60.0 mL/min (>60); Glucose 93 mg/dL (80-110); HEMOLYSIS < 15 (0-50); Sodium 141 mmol/L (137-145)
== END ==
PROVIDERS: Visit Provider Internal Medicine
DX: I10 Essential (primary) hypertension (principal)
CPT/HCPCS: 36415; 80048

== ENCOUNTER → 2019-08-19 15:47 | Outpatient (ROUT) | payer MEDICARE, OTHER, SELFPAY ==
[2019-01-06 15:57] VITALS: BMI 25.9
[2019-08-19 16:05] LABS: Add Manual Diff / Slide Review NO; Basophils Absolute Auto 0 /uL (0-100); Eosinophils Absolute Auto 100 /uL (0-450); Eosinophils Percent Auto 2.2 % (2-4); Hematocrit 44.2 % (41-53); Lymphocytes Absolute Auto 1500 /uL (1100-4500); Lymphocytes Percent Auto 31.2 % (25-40); Mean Corpuscular Hemoglobin 32.3 PG (26-34); Monocytes Absolute Auto 400 /uL (0-900); Neutrophils Absolute Auto 2800 /uL (1500-7000); Neutrophils Percent Auto 57.6 % (50-75); Platelet Count 251 X10^3/uL (150-400); Red Blood Cell Count 4.65 X10^6/uL (4.5-5.9); Red Cell Distribution Width 13.8 % (11.6-14.8); White Blood Cell Count 4.8 X10^3/uL (4.5-11.0)
[2019-08-19 16:07] LABS: Alanine Aminotransferase 29 IU/L (21-72); Albumin 4.6 g/dL (3.5-5.0); Albumin Globulin Ratio 1.8 (1.0-2.8); Alkaline Phosphatase 46 U/L (38-126); Aspartate Aminotransferase 26 IU/L (17-59); BUN Creatinine Ratio 23.3 (6-22); Bilirubin Total 0.5 mg/dL (0.2-1.3); Blood Urea Nitrogen 21 mg/dL (9-20); Calcium 10.4 mg/dL (8.4-10.2); Carbon Dioxide 26 mmol/L (22-32); Chloride 105 mmol/L (98-107); Cholesterol 182 mg/dL (140-199); Estimated Glomerular Filt Rate > 60.0 mL/min (>60); Globulin 2.6 g/dL (1.7-4.1); Glucose 89 mg/dL (80-110); HDL Cholesterol 80 mg/dL (40-60); HEMOLYSIS < 15 (0-50); LDL Cholesterol Calculated 83 mg/dL (<100); Potassium 4.7 mmol/L (3.4-5.1); Sodium 141 mmol/L (137-145); Total Protein 7.2 g/dL (6.3-8.2); Triglycerides 97 mg/dL (35-150)
[2019-08-19 16:37] LABS: TSH w/ Reflex to FT4 2.74 uIU/mL (0.47-4.68)
== END ==
PROVIDERS: Visit Provider Internal Medicine
DX: R07.9 Chest pain, unspecified (principal); E78.2 Mixed hyperlipidemia
CPT/HCPCS: 80053; 80061; 84443; 85025

== ENCOUNTER → 2020-08-24 18:57 | Outpatient (ROUT) | payer MEDICARE, OTHER, SELFPAY ==
[2019-01-06 15:57] VITALS: BMI 25.9
[2020-08-24 19:27] LABS: Alanine Aminotransferase 20 IU/L (<50); Albumin 4.4 g/dL (3.5-5.0); Albumin Globulin Ratio 1.6 (1.0-2.8); Alkaline Phosphatase 41 U/L (38-126); Aspartate Aminotransferase 29 IU/L (17-59); BUN Creatinine Ratio 30.1 (6-22); Bilirubin Total 0.5 mg/dL (0.2-1.3); Blood Urea Nitrogen 25 mg/dL (9-20); Calcium 9.6 mg/dL (8.4-10.2); Carbon Dioxide 24 mmol/L (22-32); Chloride 108 mmol/L (98-107); Cholesterol 172 mg/dL (140-199); Estimated Glomerular Filt Rate > 60.0 mL/min (>60); Globulin 2.7 g/dL (1.7-4.1); Glucose 84 mg/dL (80-110); HDL Cholesterol 100 mg/dL (40-60); HEMOLYSIS 31 (0-50); LDL Cholesterol Calculated 54 mg/dL (<100); Magnesium 2.1 mg/dL (1.6-2.3); Potassium 4.7 mmol/L (3.4-5.1); Sodium 140 mmol/L (137-145); Total Protein 7.1 g/dL (6.3-8.2); Triglycerides 91 mg/dL (35-150)
[2020-08-24 19:34] LABS: Add Manual Diff / Slide Review NO; Basophils Absolute Auto 0 /uL (0-100); Basophils Percent Auto 0.3 % (0-2); Eosinophils Absolute Auto 100 /uL (0-450); Eosinophils Percent Auto 1.9 % (2-4); Hematocrit 42.1 % (41-53); Hemoglobin 13.9 g/dL (13.5-17.5); Lymphocytes Absolute Auto 1400 /uL (1100-4500); Lymphocytes Percent Auto 25.3 % (25-40); Mean Corpuscular Hemoglobin 32.2 PG (26-34); Mean Corpuscular Volume 97.5 fL (80-100); Monocytes Absolute Auto 500 /uL (0-900); Monocytes Percent Auto 9.3 % (3-14); Neutrophils Absolute Auto 3600 /uL (1500-7000); Neutrophils Percent Auto 63.2 % (50-75); Platelet Count 221 X10^3/uL (150-400); Red Blood Cell Count 4.32 X10^6/uL (4.5-5.9); Red Cell Distribution Width 13.6 % (11.6-14.8); White Blood Cell Count 5.6 X10^3/uL (4.5-11.0)
[2020-08-24 19:54] LABS: Prostate Specific Antigen < 0.064 ng/mL (0.10-4.00)
[2020-08-24 19:55] LABS: TSH w/ Reflex to FT4 2.62 uIU/mL (0.47-4.68)
[2020-08-24 20:13] LABS: Vitamin B12 827 pg/mL (239-931)
== END ==
PROVIDERS: Visit Provider Internal Medicine
DX: I10 Essential (primary) hypertension (principal); E78.2 Mixed hyperlipidemia; E87.6 Hypokalemia; E53.8 Deficiency of other specified B group vitamins; Z85.46 Personal history of malignant neoplasm of prostate
CPT/HCPCS: 80053; 80061; 82607; 83735; 84153; 84443; 85025

== ENCOUNTER → 2021-02-07 15:14 | Outpatient (CLI) | payer MEDICARE, OTHER, SELFPAY ==
[2019-01-06 15:57] VITALS: BMI 25.9
--- NOTE | 2021-02-07 15:17 | DI.RAD.S_ITS ---
PROCEDURE: XR LUMBAR SPINE 2-3V INDICATIONS: LOW BACK PAIN TECHNIQUE: 2 views of the lumbar spine were acquired. COMPARISON: None. FINDINGS: Bones: 5 [id number]-[id number] vertebrae are present. There is normal bony alignment. No vertebral body compression fractures. No suspicious bony lesions. Disc space narrowing and hypertrophic facet joints noted throughout the lumbar spine particularly at L3-4, L4-5 and L5-S1. Soft tissues: Atherosclerotic calcification in the abdominal aorta without evidence of aneurysm. IMPRESSION: Multilevel degenerative disc disease and arthropathy without fracture or malalignment. Aortic atherosclerosis without aneurysm Dictated by: Salvatore Wells M.D. on 02/07/2021 at 16:00 Approved by: Salvatore Wells M.D. on 02/07/2021 at 16:02
== END ==
PROVIDERS: PCP Internal Medicine; Referring Provider Internal Medicine; Visit Provider Internal Medicine
DX: M54.5 Low back pain (principal); M51.36 Other intervertebral disc degeneration, lumbar region; M51.37 Other intervertebral disc degeneration, lumbosacral region; M47.816 Spondylosis without myelopathy or radiculopathy, lumbar region; M47.817 Spondylosis without myelopathy or radiculopathy, lumbosacral region; I70.0 Atherosclerosis of aorta
CPT/HCPCS: 72100

== ENCOUNTER → 2021-08-10 08:43 | Outpatient (CLI) | payer MEDICARE, OTHER, SELFPAY ==
[2019-01-06 15:57] VITALS: BMI 25.9
--- NOTE | 2021-08-10 | DI.MRI.S_ITS ---
PROCEDURE: MR LUMBAR SPINE WO CON INDICATIONS: Low back pain, unspecified TECHNIQUE: Noncontrast sagittal T1 spin echo and T2 fast echo, sagittal STIR, axial T1 and T2 fast spin echo through the lumbar spine. In cases with scoliosis, additional coronal T2 fast spin echo may be performed. COMPARISON: [facility], CT, CT ABDOMEN WO/W CON, 01/07/2019, 9:00. [facility], CR, XR LUMBAR SPINE 2-3V, 02/07/2021, 15:18. FINDINGS: Image quality: This examination is limited by involuntary motion artifact. Alignment and Curvature: There is normal bony alignment. Bone Marrow: Marrow is of normal overall signal. No acute vertebral body compression fractures. Spinal Cord: Conus medullaris terminates at the T12-L1 level. Visualized cord demonstrates normal signal and size. Paraspinous Soft Tissues: No paravertebral masses. The known right adrenal adenoma is faintly seen on 1 image, series 5, image 3. T12-L1: Normal appearance. L1-L2: Normal appearance. L2-L3: Mild loss of disc height is seen. Loss of disc signal is seen. Moderate disc bulge is seen, which is eccentric to the right. There is a central disc protrusion. Mild to moderate facet hypertrophy is seen. There is moderate to severe bilateral neural foraminal narrowing seen, right worse than left. There is a degree of compression seen upon the exiting nerve roots. At least moderate central canal narrowing is seen. L3-L4: Mild loss of disc height is seen. Loss of disc signal is seen. Moderate disc bulge is seen, which is eccentric to the right. There is a superimposed central disc protrusion. Moderate to prominent facet hypertrophy can be seen. There is moderate to severe bilateral neural foraminal narrowing seen, left worse than right. There is a degree of compression seen upon the exiting nerve roots. At least moderate central canal narrowing is seen. L4-L5: At least moderate loss of disc height and disc signal can be seen. Reactive marrow endplate changes are seen, which demonstrate mixed T1 weighted and T2-weighted signal, and are attributed to a combination of edema and fatty metaplasia (Modic type I and Modic type II changes). At least moderate disc bulge is seen. There is a superimposed central disc protrusion. Prominent facet hypertrophy is seen. Associated hypertrophy of the ligamentum flavum can be seen. Moderate to severe bilateral neural foraminal narrowing can be seen at this level. There is a degree of compression seen upon the exiting nerve roots. Moderate to severe central canal narrowing is seen, as on series 5, image 26. L5-S1: Moderate loss of disc height is seen. Loss of disc signal is seen. Moderate generalized disc bulge is seen. There is a superimposed central disc protrusion. Moderate to prominent facet hypertrophy is seen at this level. There is moderate to severe bilateral neural foraminal narrowing seen, right worse than left. There is a degree of compression seen upon the exiting nerve roots. At least moderate central canal narrowing is seen. IMPRESSION: Multiple levels of relatively prominent lumbar spine degenerative change can be seen, which are overall worst at the L4-L5 level. Dictated by: Jacques Lindo M.D. on 08/10/2021 at 8:39 Approved by: Jacques Lindo M.D. on 08/10/2021 at 8:44
== END ==
PROVIDERS: PCP Internal Medicine; Referring Provider Internal Medicine; Visit Provider Internal Medicine
DX: M54.50 Low back pain, unspecified (principal); G89.29 Other chronic pain; M47.816 Spondylosis without myelopathy or radiculopathy, lumbar region; M47.817 Spondylosis without myelopathy or radiculopathy, lumbosacral region
CPT/HCPCS: 72148

== ENCOUNTER → 2022-04-12 16:15 | Outpatient (CLI) | payer MEDICARE, OTHER, SELFPAY ==
[2019-01-06 15:57] VITALS: BMI 25.9
[2022-04-12 18:00] LABS: Hematocrit 40.2 % (41-53); Hemoglobin 13.8 g/dL (13.5-17.5); Mean Corpuscular HGB Conc 34.3 % (30-36); Mean Corpuscular Hemoglobin 32.8 PG (26-34); Mean Corpuscular Volume 95.6 fL (80-100); Platelet Count 231 X10^3/uL (150-400); White Blood Cell Count 7.6 X10^3/uL (4.5-11.0)
[2022-04-12 18:55] LABS: TSH w/ Reflex to FT4 2.21 uIU/mL (0.47-4.68)
[2022-04-12 18:57] LABS: HEMOLYSIS < 15 (0-50); Potassium 4.6 mmol/L (3.4-5.1)
[2022-04-12 18:58] LABS: Alanine Aminotransferase 18 IU/L (<50); Albumin 4.6 g/dL (3.5-5.0); Albumin Globulin Ratio 1.6 (1.0-2.8); Alkaline Phosphatase 39 U/L (38-126); Aspartate Aminotransferase 31 IU/L (17-59); BUN Creatinine Ratio 21.9 (6-22); Bilirubin Total 0.6 mg/dL (0.2-1.3); Blood Urea Nitrogen 23 mg/dL (9-20); Calcium 9.6 mg/dL (8.4-10.2); Carbon Dioxide 28 mmol/L (22-32); Chloride 107 mmol/L (98-107); Cholesterol 180 mg/dL (140-199); Estimated Glomerular Filt Rate > 60 mL/min (>60); Globulin 2.9 g/dL (1.7-4.1); Glucose 86 mg/dL (80-110); HDL Cholesterol 96 mg/dL (40-60); LDL Cholesterol Calculated 69 mg/dL (<100); Sodium 141 mmol/L (137-145); Total Protein 7.5 g/dL (6.3-8.2); Triglycerides 75 mg/dL (35-150)
[2022-04-12 19:32] LABS: Prostate Specific Antigen < 0.064 ng/mL (0.10-4.00)
== END ==
PROVIDERS: PCP Internal Medicine; Referring Provider Internal Medicine; Visit Provider Internal Medicine
DX: I10 Essential (primary) hypertension (principal); Z85.46 Personal history of malignant neoplasm of prostate; E78.2 Mixed hyperlipidemia
CPT/HCPCS: 36415; 80053; 80061; 84153; 84443; 85027

== ENCOUNTER → 2023-05-01 11:10 | Outpatient (CLI) | payer MEDICARE, OTHER, SELFPAY ==
[2019-01-06 15:57] VITALS: BMI 25.9
[2023-05-01 12:25] LABS: Hematocrit 42.8 % (41-53); Hemoglobin 14.4 g/dL (13.5-17.5); Mean Corpuscular HGB Conc 33.6 % (30-36); Mean Corpuscular Hemoglobin 32.1 PG (26-34); Mean Corpuscular Volume 95.6 fL (80-100); Platelet Count 245 X10^3/uL (150-400); Red Blood Cell Count 4.48 X10^6/uL (4.5-5.9); Red Cell Distribution Width 12.9 % (11.6-14.8); White Blood Cell Count 5.6 X10^3/uL (4.5-11.0)
[2023-05-01 13:06] LABS: Alanine Aminotransferase 22 IU/L (<50); Albumin 4.5 g/dL (3.5-5.0); Albumin Globulin Ratio 1.6 (1.0-2.8); Alkaline Phosphatase 46 U/L (38-126); Aspartate Aminotransferase 28 IU/L (17-59); Bilirubin Total 0.7 mg/dL (0.2-1.3); Blood Urea Nitrogen 22 mg/dL (9-20); Calcium 9.7 mg/dL (8.4-10.2); Carbon Dioxide 26 mmol/L (22-32); Chloride 103 mmol/L (98-107); Cholesterol 252 mg/dL (140-199); Estimated Glomerular Filt Rate > 60 mL/min (>60); Globulin 2.9 g/dL (1.7-4.1); Glucose 94 mg/dL (80-110); HDL Cholesterol 107 mg/dL (40-60); HEMOLYSIS < 15 (0-50); LDL Cholesterol Calculated 127 mg/dL (<100); Potassium 4.4 mmol/L (3.4-5.1); Sodium 139 mmol/L (137-145); Total Protein 7.4 g/dL (6.3-8.2); Triglycerides 88 mg/dL (35-150)
[2023-05-01 13:34] LABS: Prostate Specific Antigen < 0.064 ng/mL (0.10-4.00)
== END ==
PROVIDERS: PCP Internal Medicine; Referring Provider Internal Medicine; Visit Provider Internal Medicine
DX: E78.2 Mixed hyperlipidemia (principal); Z85.46 Personal history of malignant neoplasm of prostate; I10 Essential (primary) hypertension
CPT/HCPCS: 36415; 80053; 80061; 84153; 85027

== ENCOUNTER 2023-09-02 09:00 | Outpatient (RCR) | payer MEDICARE, OTHER, SELFPAY ==
[2019-01-06 15:57] VITALS: BMI 25.9
--- NOTE | 2023-08-07 12:21 | PT.OPPOC ---
Physical, Occupational & Speech Therapy At [facility] Current Diagnoses Pain in unspecified shoulder (08/07/23) Visit Care Team Role Provider Type Garfield Monroy MD Family Provider Physician Primary Care Provider Specialty: Internal Medicine Address: [address] [place] [address], [id number] Email: [email or web address] Attending Provider Advanced Diamond Expert Referring Provider Specialty: Family Practice Address: [address] [place] [address], [place], [address] Phone: Fax: Email: [email or web address] Plan Of Care PT-OP-T Assessment and Plan Start: 08/07/23 12:20 Freq: Status: Active Protocol: Document 08/07/23 12:21 AM (Rec: 08/07/23 13:03 AM [id number]) Physical Therapy Assessment Rehab Potential Rehabilitation Potential Good Evaluation Complexity Number of Personal Factors/Comorbidities 0 Number of Body Systems Impaired 1-2 Clinical Presentation at Evaluation Stable Impairments Impairments Activity Tolerance, Coordination,Functional Activities,Functional Mobility ,Pain,Posture,ROM,Soft Tissue Mobility,Strength Goals Strength Impairment Pt with shoulder strength grossly at 3 to 3+/5 Short Term Goal (STG) Pt with shoulder strength grossly at 4-/5 bilaterally. STG Duration 09/04/23 Quantitative Equity Head Goal (LTG) Pt with shoulder strength grossly at 4/5 bilaterally. LTG Duration 10/02/23 ROM Impairment Pt with limited shoulder flexion and abduction ROM. Short Term Goal (STG) Pt with 10 deg improvement in shoulder flexion and abduction ROM. STG Duration 09/04/23 Quantitative Equity Head Goal (LTG) Pt with 15 deg improvement in shoulder flexion and abduction ROM bilaterally. LTG Duration 10/02/23 Quick Dash Impairment Pt with Quick Dash score of 43 % Quantitative Equity Head Goal (LTG) Pt with Quick Dash score of < 23%. LTG Duration 10/02/23 Sleep Impairment Pt reports that he is able to sleep 2 hours at a time Short Term Goal (STG) Pt to report that he is able to sleep for 4+ hours at a time. STG Duration 09/04/23 Custodial Goal (LTG) Pt to report that he is able to sleep for 6+ hours without disruption secondary to shoulder pain. LTG Duration 10/02/23 Assessment Summary Assessment Gil Meyer presents to PT with bilateral shoulder (upper arm) pain and weakness. Pt demonstrates limitations in shoulder ROM bilaterally, with L more limited than R. Pt with forward shoulder posture and poor scapular control. Pt demonstrates greater AROM vs PROM mobility at bilateral shoulders. Pt with impingement symptoms bilaterally and superior humeral glide with AROM. Pt able to tolerate exercises given in HEP without production of pain. Pt would benefit from continued PT to progress functional shoulder strength and mobility to improve tolerance to activity and decrease pain with sleep. Physical Therapy Plan Frequency and Duration Frequency of Treatment 2x/Week Duration of treatment (weeks) 8 Plan of Care Start Date 08/07/23 Plan of Care End Date 10/02/23 Therapeutic Interventions Therapeutic Interventions Coordination Training,Home Exercise Program,Manual Therapy,Neuromuscular Re- education,Patient/Caregiver Education,Self-Care/Home Management,Soft Tissue Mobilization,Taping, Therapeutic Activities, Therapeutic Exercises Modalities Cold Pack/Ice Massage,Electric Stimulation,Hot Packs, Ultrasound Next Visit Focus/Plan Next Note Type Treatment Note Next Visit Plan Progress scapular mobility and shoulder girdle strength as tolerated. Plan of Care Dates Plan of Care Start Date 08/07/23 Plan of Care End Date 10/02/23 Electronically Signed by: Heather Lara, PT 08/07/23 [id number] If you are in agreement with this Plan of Care, please return a signed and dated copy. I have reviewed this Plan of Care and certify that the skilled therapy services above are required to meet the patient?s needs. Physician Signature Date Printed Name and Credentials Clinical Instructor Signature Printed Name and Credentials
--- NOTE | 2023-08-07 12:21 | PT.OIE ---
Current Diagnoses Pain in unspecified shoulder (08/07/23) Past Medical History (Last Updated 05/01/23 @ 06:52 by Garfield Monroy MD) Erectile dysfunction Essential hypertension History of prostate cancer Hyperlipidemia Hypertension Low back pain Mixed hyperlipidemia Prostate cancer Past Surgical History (Last Reviewed 05/01/23 @ 06:51 by Garfield Monroy MD) S/P TURP Visit Care Team Role Provider Type Garfield Monroy MD Family Provider Physician Primary Care Provider Specialty: Internal Medicine Address: [address] [place] [address], [address] Email: [email or web address] Attending Provider Advanced Chief Pilot Referring Provider Specialty: Family Practice Address: [address] [place] [address], [id number] Phone: Fax: Email: [email or web address] [facility] Initial Evaluation PT-OP-A Visit Information Start: 08/07/23 12:20 Freq: Status: Active Protocol: Document 08/07/23 12:21 AM (Rec: 08/07/23 13:03 AM [id number]) Out-Patient Physical Therapy Visit Information Visit Information Visit Type Initial Evaluation Visit Start Time 12:21 Visit Stop Time 13:03 Total Visit Minutes 42 Visit Number 1 Evaluation Information Evaluation Date 08/07/23 Precautions Precautions Pt with LBP PT-OP-B Current Condition Start: 08/07/23 12:20 Freq: Status: Active Protocol: Document 08/07/23 12:21 AM (Rec: 08/07/23 13:03 AM [id number]) Current Condition History of Current Condition Onset Date 4 months ago Current Complaints bilateral upper arm pain and weakness History of Current Condition Pt reports bilateral upper arm pain. Pt reports L arm is worse than R. Pt reports that he had a booster shot and pain started a few days following. Pt is unsure if this was the cause of his pain. Pt reports that he feels that his strength has decreased at bilateral arms. Pt can do activities below 90 degrees with minimal pain, though increased pain with over 90 deg. Pt reports that he also has pain with sleeping. He sleeps on each side. Prior Functional Status Baseline Function- ADL's Independent Baseline Function- Mobility Independent Current Functional Impairments (Reported) Functional Limitations- ADL's painful, though able to do Functional Limitations- Recreation/ difficulty with gardening Hobbies secondary to pain. PT-OP-C Subjective Start: 08/07/23 12:20 Freq: Status: Active Protocol: Document 08/07/23 12:21 AM (Rec: 08/07/23 13:03 AM [id number]) Patient Questionnaires Quick Dash- Upper Extremity Quick Dash UE Score 43 Quick Dash UE Impairment 40 to 59% Impaired (Score 40- 59) OP-PT Pain Assessment Location Right Upper Arm Pain Location Details deltoid Intensity 4 Scale Used Numeric (0 - 10) Description Aching Frequency Daily Pain Aggravating Factors Position,ADL's,Lifting Other Pain Alleviating Factors spray medication cream Left Upper Arm Pain Location Details deltoid Intensity 4 Scale Used Numeric (0 - 10) Description Aching Frequency Daily Pain Aggravating Factors Position,ADL's,Lifting Other Pain Alleviating Factors spray medication cream PT-OP-K Range of Motion Start: 08/07/23 12:20 Freq: Status: Active Protocol: Document 08/07/23 12:21 AM (Rec: 08/07/23 13:03 AM [id number]) Shoulder Goniometric Range of Motion Shoulder Right Passive Shoulder ROM WFL Yes Testing Position Supine Flexion 145 Abduction 150 Left Passive Shoulder ROM WFL Yes Testing Position Supine Flexion 145 Abduction 155 Right Active Shoulder ROM WFL No Testing Position Sitting Flexion 90 Abduction 130 Internal Rotation Behind Back (text) L5 Comments abduction in scaption plane ER aply T1 Left Active Shoulder ROM WFL No Testing Position Sitting Flexion 80 Abduction 110 Internal Rotation Behind Back (text) L1 Comments abduction in scaption plane ER Aply: T2 PT-OP-L Special Tests Start: 08/07/23 12:20 Freq: Status: Active Protocol: Document 08/07/23 12:21 AM (Rec: 08/07/23 18:10 AM [id number]) Special Tests Shoulder Special Tests Empty Can Test Results Bilateral shoulders Elevation Impingement Test Results David shoulders PT-OP-M Strength Start: 08/07/23 12:20 Freq: Status: Active Protocol: Document 08/07/23 12:21 AM (Rec: 08/07/23 13:03 AM [id number]) Shoulder Strength Shoulder Manual Muscle Testing Right Flexion 3 Fair Abduction (C5) 3+ Fair+ External Rotation 3+ Fair+ Internal Rotation 3+ Fair+ Left Flexion 3 Fair Abduction (C5) 3 Fair External Rotation 3 Fair Internal Rotation 3 Fair PT-OP-Q Treatments Start: 08/07/23 12:20 Freq: Status: Active Protocol: Document 08/07/23 12:21 AM (Rec: 08/07/23 18:11 AM [id number]) Therapeutic Exercises Supine Exercises Dowel shoulder flexion Supine Exercise Name Dowel shoulder flexion Side bilateral Equipment Used trekking pole Reps/Minutes x10 Standing Exercises Standing row Standing Exercise Name Standing row Side bilateral Resistance Mcmullen TB Reps/Minutes x10 Comments with cues for scapular control PT-OP-T Assessment and Plan Start: 08/07/23 12:20 Freq: Status: Active Protocol: Document 08/07/23 12:21 AM (Rec: 08/07/23 13:03 AM [id number]) Physical Therapy Assessment Rehab Potential Rehabilitation Potential Good Evaluation Complexity Number of Personal Factors/Comorbidities 0 Number of Body Systems Impaired 1-2 Clinical Presentation at Evaluation Stable Impairments Impairments Activity Tolerance, Coordination,Functional Activities,Functional Mobility ,Pain,Posture,ROM,Soft Tissue Mobility,Strength Goals Strength Impairment Pt with shoulder strength grossly at 3 to 3+/5 Short Term Goal (STG) Pt with shoulder strength grossly at 4-/5 bilaterally. STG Duration 09/04/23 Nursing Home Goal (LTG) Pt with shoulder strength grossly at 4/5 bilaterally. LTG Duration 10/02/23 ROM Impairment Pt with limited shoulder flexion and abduction ROM. Short Term Goal (STG) Pt with 10 deg improvement in shoulder flexion and abduction ROM. STG Duration 09/04/23 Nurse Practitioner Physician Assistant Goal (LTG) Pt with 15 deg improvement in shoulder flexion and abduction ROM bilaterally. LTG Duration 10/02/23 Quick Dash Impairment Pt with Quick Dash score of 43 % Nursing Home Goal (LTG) Pt with Quick Dash score of < 23%. LTG Duration 10/02/23 Sleep Impairment Pt reports that he is able to sleep 2 hours at a time Short Term Goal (STG) Pt to report that he is able to sleep for 4+ hours at a time. STG Duration 09/04/23 Nursing Home Goal (LTG) Pt to report that he is able to sleep for 6+ hours without disruption secondary to shoulder pain. LTG Duration 10/02/23 Assessment Summary Assessment Gil Meyer presents to PT with bilateral shoulder (upper arm) pain and weakness. Pt demonstrates limitations in shoulder ROM bilaterally, with L more limited than R. Pt with forward shoulder posture and poor scapular control. Pt demonstrates greater AROM vs PROM mobility at bilateral shoulders. Pt with impingement symptoms bilaterally and superior humeral glide with AROM. Pt able to tolerate exercises given in HEP without production of pain. Pt would benefit from continued PT to progress functional shoulder strength and mobility to improve tolerance to activity and decrease pain with sleep. Physical Therapy Plan Frequency and Duration Frequency of Treatment 2x/Week Duration of treatment (weeks) 8 Plan of Care Start Date 08/07/23 Plan of Care End Date 10/02/23 Therapeutic Interventions Therapeutic Interventions Coordination Training,Home Exercise Program,Manual Therapy,Neuromuscular Re- education,Patient/Caregiver Education,Self-Care/Home Management,Soft Tissue Mobilization,Taping, Therapeutic Activities, Therapeutic Exercises Modalities Cold Pack/Ice Massage,Electric Stimulation,Hot Packs, Ultrasound Next Visit Focus/Plan Next Note Type Treatment Note Next Visit Plan Progress scapular mobility and shoulder girdle strength as tolerated.
--- NOTE | 2023-08-13 11:34 | PT.OTN ---
Current Diagnoses Pain in unspecified shoulder (08/13/23) Physical Therapy Treatment Note PT-OP-A Visit Information Start: 08/07/23 12:20 Freq: Status: Active Protocol: Document 08/13/23 10:17 NBM (Rec: 08/13/23 11:34 [facility] [id number]) Out-Patient Physical Therapy Visit Information Visit Information Visit Type Treatment Note Visit Start Time 10:25 Visit Stop Time 11:10 Total Visit Minutes 45 Visit Number 2 Number of PLACING JUDGE Visits 1 Evaluation Information Evaluation Date 08/07/23 Precautions Precautions Pt with LBP PT-OP-B Current Condition Start: 08/07/23 12:20 Freq: Status: Active Protocol: Document 08/07/23 12:21 AM (Rec: 08/07/23 13:03 AM [id number]) Current Condition History of Current Condition Onset Date 4 months ago Current Complaints bilateral upper arm pain and weakness History of Current Condition Pt reports bilateral upper arm pain. Pt reports L arm is worse than R. Pt reports that he had a booster shot and pain started a few days following. Pt is unsure if this was the cause of his pain. Pt reports that he feels that his strength has decreased at bilateral arms. Pt can do activities below 90 degrees with minimal pain, though increased pain with over 90 deg. Pt reports that he also has pain with sleeping. He sleeps on each side. Prior Functional Status Baseline Function- ADL's Independent Baseline Function- Mobility Independent Current Functional Impairments (Reported) Functional Limitations- ADL's painful, though able to do Functional Limitations- Recreation/ difficulty with gardening Hobbies secondary to pain. PT-OP-C Subjective Start: 08/07/23 12:20 Freq: Status: Active Protocol: Document 08/13/23 10:17 NBM (Rec: 08/13/23 11:34 [facility] [id number]) OP-PT Subjective Patient Comments Patient Comments Mike reports no changes. His L shoulder hurts more than his right. he's been doing his ex' s. The pain is fine during the day but wakes him up at night . I use a spray cream but it lasts two hours and then I wake up. PT-OP-K Range of Motion Start: 08/07/23 12:20 Freq: Status: Active Protocol: Document 08/07/23 12:21 AM (Rec: 08/07/23 13:03 AM [id number]) Shoulder Goniometric Range of Motion Shoulder Right Passive Shoulder ROM WFL Yes Testing Position Supine Flexion 145 Abduction 150 Left Passive Shoulder ROM WFL Yes Testing Position Supine Flexion 145 Abduction 155 Right Active Shoulder ROM WFL No Testing Position Sitting Flexion 90 Abduction 130 Internal Rotation Behind Back (text) L5 Comments abduction in scaption plane ER aply T1 Left Active Shoulder ROM WFL No Testing Position Sitting Flexion 80 Abduction 110 Internal Rotation Behind Back (text) L1 Comments abduction in scaption plane ER Aply: T2 PT-OP-L Special Tests Start: 08/07/23 12:20 Freq: Status: Active Protocol: Document 08/07/23 12:21 AM (Rec: 08/07/23 18:10 AM [id number]) Special Tests Shoulder Special Tests Empty Can Test Results Bilateral shoulders Elevation Impingement Test Results David shoulders PT-OP-M Strength Start: 08/07/23 12:20 Freq: Status: Active Protocol: Document 08/07/23 12:21 AM (Rec: 08/07/23 13:03 AM [id number]) Shoulder Strength Shoulder Manual Muscle Testing Right Flexion 3 Fair Abduction (C5) 3+ Fair+ External Rotation 3+ Fair+ Internal Rotation 3+ Fair+ Left Flexion 3 Fair Abduction (C5) 3 Fair External Rotation 3 Fair Internal Rotation 3 Fair PT-OP-Q Treatments Start: 08/07/23 12:20 Freq: Status: Active Protocol: Document 08/13/23 10:17 NBM (Rec: 08/13/23 11:34 [facility] [id number]) Therapeutic Exercises Supine Exercises Serratus punch Side bilateral Reps/Minutes x10 Comments initial tactile cue for form Dowel shoulder flexion Supine Exercise Name Dowel shoulder flexion Side bilateral Equipment Used dowel Reps/Minutes x10 Comments R rush clicking resolves w/ cues for UT overactivation and scapular setting Sitting Exercises Pulleys Sitting Exercise Name L PROM, R AROM: flex/scap/abd Reps/Minutes x10 ea Comments pain noted with abduction, cued for pain-free range Standing Exercises Standing row Standing Exercise Name Standing row Side bilateral Resistance [place] TB>Cassatt Tb Reps/Minutes x10 Comments with cues for scapular control , no UT overactivation Manual Therapy Treatment Soft Tissue Mobilization R shoulder Body Location deltoid, biceps, UT, LS, pec Mobilization Type Rolling,Strumming,Sustained Pressure L shoulder Body Location Deltoid, biceps, UT, LS, teres major/min, pec Mobilization Type Rolling,Strumming,Sustained Pressure Joint Mobilizations GH Joint glenohumeral David Direction inf, post Grade II Body Position Hooklying ST Joint scapulothoracic david Direction rotation, elev/depr, pro/retr, tilt Grade II Body Position Sidelying Self-Care/Home Management Treatment Education Patient Education Body Mechanics,Home Exercise Program Other Education Progressed resisted shoulder rows from Lvl 1 peach> Lvl2 orange Tb. Added to HEP: serratus punch - updated HO and orange Tb given. Trialed sleeping positions in sidelying and hooklying w/ pillow supports under arm and between knees/ankles - with positive feedback response. PT-OP-T Assessment and Plan Start: 08/07/23 12:20 Freq: Status: Active Protocol: Document 08/13/23 10:17 NBM (Rec: 08/13/23 11:34 [facility] [id number]) Physical Therapy Assessment Assessment Summary Assessment Mike requires consistent cues for Upper trapezius overactivation w/ ex's and self-awareness improves by end of session with cueing and repetition. Slight pain reported with L PROM abduction with pulleys and pt is educated for pain-free range. Progressed resisted shoulder rows from Lvl 1 peach> Lvl2 orange Tb. Added to HEP: serratus punch - updated HO and orange Tb given. Trialed sleeping positions in sidelying and hooklying w/ pillow supports under arm and between knees/ankles - with positive feedback response. Pt reports improved L shoulder mobility without pain following manual therapy. Physical Therapy Plan Frequency and Duration Frequency of Treatment 2x/Week Duration of treatment (weeks) 8 Plan of Care Start Date 08/07/23 Plan of Care End Date 10/02/23 Therapeutic Interventions Therapeutic Interventions Coordination Training,Home Exercise Program,Manual Therapy,Neuromuscular Re- education,Patient/Caregiver Education,Self-Care/Home Management,Soft Tissue Mobilization,Taping, Therapeutic Activities, Therapeutic Exercises Modalities Cold Pack/Ice Massage,Electric Stimulation,Hot Packs, Ultrasound Next Visit Focus/Plan Next Note Type Treatment Note Next Visit Plan Progress scapular mobility and shoulder girdle strength as tolerated.
--- NOTE | 2023-08-16 10:31 | PT.OTN ---
Current Diagnoses Pain in unspecified shoulder (08/16/23) Physical Therapy Treatment Note PT-OP-A Visit Information Start: 08/07/23 12:20 Freq: Status: Active Protocol: Document 08/16/23 10:31 AM (Rec: 08/16/23 13:31 AM [id number]) Out-Patient Physical Therapy Visit Information Visit Information Visit Type Treatment Note Visit Start Time 10:31 Visit Stop Time 11:15 Total Visit Minutes 44 Visit Number 3 Precautions Precautions Pt with LBP also PT-OP-B Current Condition Start: 08/07/23 12:20 Freq: Status: Active Protocol: Document 08/07/23 12:21 AM (Rec: 08/07/23 13:03 AM [id number]) Current Condition History of Current Condition Onset Date 4 months ago Current Complaints bilateral upper arm pain and weakness History of Current Condition Pt reports bilateral upper arm pain. Pt reports L arm is worse than R. Pt reports that he had a booster shot and pain started a few days following. Pt is unsure if this was the cause of his pain. Pt reports that he feels that his strength has decreased at bilateral arms. Pt can do activities below 90 degrees with minimal pain, though increased pain with over 90 deg. Pt reports that he also has pain with sleeping. He sleeps on each side. Prior Functional Status Baseline Function- ADL's Independent Baseline Function- Mobility Independent Current Functional Impairments (Reported) Functional Limitations- ADL's painful, though able to do Functional Limitations- Recreation/ difficulty with gardening Hobbies secondary to pain. PT-OP-C Subjective Start: 08/07/23 12:20 Freq: Status: Active Protocol: Document 08/16/23 10:31 AM (Rec: 08/16/23 13:31 AM [id number]) OP-PT Subjective Patient Comments Patient Comments Pt reports that he has had L shoulder pain during the day recently, so stopped supine dowel flexion. PT-OP-K Range of Motion Start: 08/07/23 12:20 Freq: Status: Active Protocol: Document 08/07/23 12:21 AM (Rec: 08/07/23 13:03 AM [id number]) Shoulder Goniometric Range of Motion Shoulder Right Passive Shoulder ROM WFL Yes Testing Position Supine Flexion 145 Abduction 150 Left Passive Shoulder ROM WFL Yes Testing Position Supine Flexion 145 Abduction 155 Right Active Shoulder ROM WFL No Testing Position Sitting Flexion 90 Abduction 130 Internal Rotation Behind Back (text) L5 Comments abduction in scaption plane ER aply T1 Left Active Shoulder ROM WFL No Testing Position Sitting Flexion 80 Abduction 110 Internal Rotation Behind Back (text) L1 Comments abduction in scaption plane ER Aply: T2 PT-OP-L Special Tests Start: 08/07/23 12:20 Freq: Status: Active Protocol: Document 08/07/23 12:21 AM (Rec: 08/07/23 18:10 AM [id number]) Special Tests Shoulder Special Tests Empty Can Test Results Bilateral shoulders Elevation Impingement Test Results David shoulders PT-OP-M Strength Start: 08/07/23 12:20 Freq: Status: Active Protocol: Document 08/07/23 12:21 AM (Rec: 08/07/23 13:03 AM [id number]) Shoulder Strength Shoulder Manual Muscle Testing Right Flexion 3 Fair Abduction (C5) 3+ Fair+ External Rotation 3+ Fair+ Internal Rotation 3+ Fair+ Left Flexion 3 Fair Abduction (C5) 3 Fair External Rotation 3 Fair Internal Rotation 3 Fair PT-OP-Q Treatments Start: 08/07/23 12:20 Freq: Status: Active Protocol: Document 08/16/23 10:31 AM (Rec: 08/16/23 13:31 AM [id number]) Therapeutic Exercises Supine Exercises Serratus punch Side bilateral Reps/Minutes x3 Comments increased discomfort to, so stopped Sitting Exercises Pulleys Sitting Exercise Name flexion Reps/Minutes x1 min Standing Exercises Quadruped rock back Standing Exercise Name Modified standing at counter Reps/Minutes x5 Swissball roll out Standing Exercise Name Swissball roll out into flexion Side bilateral Reps/Minutes x10 wall slide Side bilateral Resistance x5 ea Comments 1 UE at a time at corner, manual cueing for upward rot of scapula Standing extension Resistance OTB Reps/Minutes 2x10 Comments tactile cueing for scapular control Standing row Standing Exercise Name Standing row Side bilateral Resistance Anderson Tb Reps/Minutes 2x10 Comments with cues for scapular control , no UT overactivation Manual Therapy Treatment Soft Tissue Mobilization R shoulder Body Location deltoid, biceps, UT, LS, pec Mobilization Type Rolling,Strumming,Sustained Pressure L shoulder Body Location Deltoid, biceps, UT, LS, teres major/min, pec Mobilization Type Rolling,Strumming,Sustained Pressure Joint Mobilizations GH Joint glenohumeral David Direction inf, post Grade II Body Position Hooklying ST Joint scapulothoracic david Direction rotation, elev/depr, pro/retr, tilt Grade II Body Position Sidelying Manual Techniques PROM Type David shoulders, all directions Body Position Supine PT-OP-T Assessment and Plan Start: 08/07/23 12:20 Freq: Status: Active Protocol: Document 08/16/23 10:31 AM (Rec: 08/16/23 13:31 AM [id number]) Physical Therapy Assessment Goals Strength Impairment Pt with shoulder strength grossly at 3 to 3+/5 Short Term Goal (STG) Pt with shoulder strength grossly at 4-/5 bilaterally. STG Duration 09/04/23 Special Delivery Clerk Goal (LTG) Pt with shoulder strength grossly at 4/5 bilaterally. LTG Duration 10/02/23 ROM Impairment Pt with limited shoulder flexion and abduction ROM. Short Term Goal (STG) Pt with 10 deg improvement in shoulder flexion and abduction ROM. STG Duration 09/04/23 Detention Goal (LTG) Pt with 15 deg improvement in shoulder flexion and abduction ROM bilaterally. LTG Duration 10/02/23 Quick Dash Impairment Pt with Quick Dash score of 43 % Detention Goal (LTG) Pt with Quick Dash score of < 23%. LTG Duration 10/02/23 Sleep Impairment Pt reports that he is able to sleep 2 hours at a time Short Term Goal (STG) Pt to report that he is able to sleep for 4+ hours at a time. STG Duration 09/04/23 Detention Goal (LTG) Pt to report that he is able to sleep for 6+ hours without disruption secondary to shoulder pain. LTG Duration 10/02/23 Assessment Summary Assessment Pt instructed to stop AAROM flexion until next session, to decrease L shoulder irritability. Will assess next session to incorporate AAROM exercises back into HEP if tolerated. Pt requires cueing for scapular control and decreased UT involvement with resisted row/ext. Pt tolerated all PROM without production of increased symptoms. Pt with reported slight increase in L shoulder pain with wall slide , which improved with manual upward scapular rotation. Pt would benefit from continued PT to progress bilateral shoulder mobility and strength as tolerated. Physical Therapy Plan Frequency and Duration Frequency of Treatment 2x/Week Duration of treatment (weeks) 8 Plan of Care Start Date 08/07/23 Plan of Care End Date 10/02/23 Therapeutic Interventions Therapeutic Interventions Coordination Training,Home Exercise Program,Manual Therapy,Neuromuscular Re- education,Patient/Caregiver Education,Self-Care/Home Management,Soft Tissue Mobilization,Taping, Therapeutic Activities, Therapeutic Exercises Modalities Cold Pack/Ice Massage,Electric Stimulation,Hot Packs, Ultrasound Next Visit Focus/Plan Next Note Type Treatment Note Next Visit Plan Progress scapular mobility and shoulder girdle strength as tolerated.
--- NOTE | 2023-08-19 09:46 | PT.OTN ---
Current Diagnoses Pain in unspecified shoulder (08/19/23) Physical Therapy Treatment Note PT-OP-A Visit Information Start: 08/07/23 12:20 Freq: Status: Active Protocol: Document 08/19/23 09:08 SP (Rec: 08/19/23 09:50 SP [id number]) Out-Patient Physical Therapy Visit Information Visit Information Visit Type Treatment Note Visit Start Time 09:08 Visit Stop Time 09:46 Total Visit Minutes 38 Visit Number 4 Number of RADIOLOGIST DIAGNOSTIC Visits 1 Evaluation Information Evaluation Date 08/07/23 Precautions Precautions Pt with LBP also PT-OP-B Current Condition Start: 08/07/23 12:20 Freq: Status: Active Protocol: Document 08/07/23 12:21 AM (Rec: 08/07/23 13:03 AM [id number]) Current Condition History of Current Condition Onset Date 4 months ago Current Complaints bilateral upper arm pain and weakness History of Current Condition Pt reports bilateral upper arm pain. Pt reports L arm is worse than R. Pt reports that he had a booster shot and pain started a few days following. Pt is unsure if this was the cause of his pain. Pt reports that he feels that his strength has decreased at bilateral arms. Pt can do activities below 90 degrees with minimal pain, though increased pain with over 90 deg. Pt reports that he also has pain with sleeping. He sleeps on each side. Prior Functional Status Baseline Function- ADL's Independent Baseline Function- Mobility Independent Current Functional Impairments (Reported) Functional Limitations- ADL's painful, though able to do Functional Limitations- Recreation/ difficulty with gardening Hobbies secondary to pain. PT-OP-C Subjective Start: 08/07/23 12:20 Freq: Status: Active Protocol: Document 08/19/23 09:08 SP (Rec: 08/19/23 09:50 SP [id number]) OP-PT Subjective Patient Comments Patient Comments Pt reports L shld hurting when reach across body or lift away from body upon arrival. Not sure what did. PT-OP-K Range of Motion Start: 08/07/23 12:20 Freq: Status: Active Protocol: Document 08/07/23 12:21 AM (Rec: 08/07/23 13:03 AM [id number]) Shoulder Goniometric Range of Motion Shoulder Right Passive Shoulder ROM WFL Yes Testing Position Supine Flexion 145 Abduction 150 Left Passive Shoulder ROM WFL Yes Testing Position Supine Flexion 145 Abduction 155 Right Active Shoulder ROM WFL No Testing Position Sitting Flexion 90 Abduction 130 Internal Rotation Behind Back (text) L5 Comments abduction in scaption plane ER aply T1 Left Active Shoulder ROM WFL No Testing Position Sitting Flexion 80 Abduction 110 Internal Rotation Behind Back (text) L1 Comments abduction in scaption plane ER Aply: T2 PT-OP-L Special Tests Start: 08/07/23 12:20 Freq: Status: Active Protocol: Document 08/07/23 12:21 AM (Rec: 08/07/23 18:10 AM [id number]) Special Tests Shoulder Special Tests Empty Can Test Results Bilateral shoulders Elevation Impingement Test Results David shoulders PT-OP-M Strength Start: 08/07/23 12:20 Freq: Status: Active Protocol: Document 08/07/23 12:21 AM (Rec: 08/07/23 13:03 AM [id number]) Shoulder Strength Shoulder Manual Muscle Testing Right Flexion 3 Fair Abduction (C5) 3+ Fair+ External Rotation 3+ Fair+ Internal Rotation 3+ Fair+ Left Flexion 3 Fair Abduction (C5) 3 Fair External Rotation 3 Fair Internal Rotation 3 Fair PT-OP-Q Treatments Start: 08/07/23 12:20 Freq: Status: Active Protocol: Document 08/19/23 09:08 SP (Rec: 08/19/23 09:50 SP [id number]) Therapeutic Exercises Supine Exercises shoulder ER Supine Exercise Name 1. AROM 2. ER stretch w/ dowel Side left Equipment Used added to HEP Reps/Minutes 10 reps AROM, 3 reps 10 SH Comments improved ROM, painfree Serratus punch Supine Exercise Name added to HEP Side bilateral Resistance AROM Reps/Minutes 2x10 Comments good form painfree Dowel shoulder flexion Supine Exercise Name shoulder flexion- added to HEP Side bilateral Resistance AROM Equipment Used No dowel needed 10/30 Reps/Minutes 2x10 (L initial punch then able FF asc/desc) Comments R clicking resolves with reps Sitting Exercises Pulleys Sitting Exercise Name flexion Side left Equipment Used use mirror for no UT recruitment feedback Reps/Minutes x1 min Standing Exercises Standing extension Standing Exercise Name Reviewed HEP Side bilateral Resistance #2 orange>green #3 Reps/Minutes 2x15 Comments cued taller posture Standing row Standing Exercise Name Standing row- reviewed HEP Side bilateral Resistance [place] Tb> green #3 Reps/Minutes 2x15 Comments cued taller posture Manual Therapy Treatment Soft Tissue Mobilization L shoulder Body Location Deltoid, biceps, UT, LS, teres major/min, pec Mobilization Type Rolling,Strumming,Sustained Pressure Joint Mobilizations GH Joint Lglenohumeral Direction inf, post Grade II Body Position Hooklying ST Joint Lscapulothoracic david Direction rotation, elev/depr, pro/retr, tilt Grade II Body Position Sidelying Manual Techniques PROM Type L shoulders, all directions Body Position Supine PT-OP-T Assessment and Plan Start: 08/07/23 12:20 Freq: Status: Active Protocol: Document 08/19/23 09:08 SP (Rec: 08/19/23 09:50 SP [id number]) Physical Therapy Assessment Goals Strength Impairment Pt with shoulder strength grossly at 3 to 3+/5 Short Term Goal (STG) Pt with shoulder strength grossly at 4-/5 bilaterally. STG Duration 09/04/23 [facility] Goal (LTG) Pt with shoulder strength grossly at 4/5 bilaterally. LTG Duration 10/02/23 ROM Impairment Pt with limited shoulder flexion and abduction ROM. Short Term Goal (STG) Pt with 10 deg improvement in shoulder flexion and abduction ROM. STG Duration 09/04/23 [employer] Goal (LTG) Pt with 15 deg improvement in shoulder flexion and abduction ROM bilaterally. LTG Duration 10/02/23 Quick Dash Impairment Pt with Quick Dash score of 43 % [employer] Goal (LTG) Pt with Quick Dash score of < 23%. LTG Duration 10/02/23 Sleep Impairment Pt reports that he is able to sleep 2 hours at a time Short Term Goal (STG) Pt to report that he is able to sleep for 4+ hours at a time. STG Duration 09/04/23 [facility] Goal (LTG) Pt to report that he is able to sleep for 6+ hours without disruption secondary to shoulder pain. LTG Duration 10/02/23 Assessment Summary Assessment Pt improved LUE ER supine and FF OH post manual. Provided AROM exercises for home with good feedback painfree. He was able to increase resistance with ext and rows today. Instructed to increase reps to 15-20 with OTB at home for now, can give GTB next tx. My left shoulder feels better and can move it more, reported end tx. Physical Therapy Plan Frequency and Duration Frequency of Treatment 2x/Week Duration of treatment (weeks) 8 Plan of Care Start Date 08/07/23 Plan of Care End Date 10/02/23 Therapeutic Interventions Therapeutic Interventions Coordination Training,Home Exercise Program,Manual Therapy,Neuromuscular Re- education,Patient/Caregiver Education,Self-Care/Home Management,Soft Tissue Mobilization,Taping, Therapeutic Activities, Therapeutic Exercises Modalities Cold Pack/Ice Massage,Electric Stimulation,Hot Packs, Ultrasound Next Visit Focus/Plan Next Note Type Treatment Note Next Visit Plan Progress scapular mobility and shoulder girdle strength as tolerated.
--- NOTE | 2023-08-26 09:02 | PT.OTN ---
Current Diagnoses Pain in unspecified shoulder (08/26/23) Physical Therapy Treatment Note PT-OP-A Visit Information Start: 08/07/23 12:20 Freq: Status: Active Protocol: Document 08/26/23 09:02 AM (Rec: 08/26/23 13:20 AM [id number]) Out-Patient Physical Therapy Visit Information Visit Information Visit Type Treatment Note Visit Start Time 09:02 Visit Stop Time 09:47 Total Visit Minutes 45 Visit Number 5 Precautions Precautions Pt with LBP also PT-OP-B Current Condition Start: 08/07/23 12:20 Freq: Status: Active Protocol: Document 08/07/23 12:21 AM (Rec: 08/07/23 13:03 AM [id number]) Current Condition History of Current Condition Onset Date 4 months ago Current Complaints bilateral upper arm pain and weakness History of Current Condition Pt reports bilateral upper arm pain. Pt reports L arm is worse than R. Pt reports that he had a booster shot and pain started a few days following. Pt is unsure if this was the cause of his pain. Pt reports that he feels that his strength has decreased at bilateral arms. Pt can do activities below 90 degrees with minimal pain, though increased pain with over 90 deg. Pt reports that he also has pain with sleeping. He sleeps on each side. Prior Functional Status Baseline Function- ADL's Independent Baseline Function- Mobility Independent Current Functional Impairments (Reported) Functional Limitations- ADL's painful, though able to do Functional Limitations- Recreation/ difficulty with gardening Hobbies secondary to pain. PT-OP-C Subjective Start: 08/07/23 12:20 Freq: Status: Active Protocol: Document 08/26/23 09:02 AM (Rec: 08/26/23 13:20 AM [id number]) OP-PT Subjective Patient Comments Patient Comments Pt reports maybe I am feeling a little better.. Pt reports that pain continues to be L>R . PT-OP-K Range of Motion Start: 08/07/23 12:20 Freq: Status: Active Protocol: Document 08/26/23 09:02 AM (Rec: 08/26/23 13:20 AM [id number]) Shoulder Goniometric Range of Motion Shoulder Left Passive External Rotation at 45 degrees 60 Abduction Internal Rotation 70 Right Active Flexion 95 Abduction 130 Internal Rotation Behind Back (text) L1 Comments ER aply T2 Left Active Flexion 110 Abduction 115 Internal Rotation Behind Back (text) T12 Comments ER Apy: T2 PT-OP-L Special Tests Start: 08/07/23 12:20 Freq: Status: Active Protocol: Document 08/07/23 12:21 AM (Rec: 08/07/23 18:10 AM [id number]) Special Tests Shoulder Special Tests Empty Can Test Results Bilateral shoulders Elevation Impingement Test Results David shoulders PT-OP-M Strength Start: 08/07/23 12:20 Freq: Status: Active Protocol: Document 08/07/23 12:21 AM (Rec: 08/07/23 13:03 AM [id number]) Shoulder Strength Shoulder Manual Muscle Testing Right Flexion 3 Fair Abduction (C5) 3+ Fair+ External Rotation 3+ Fair+ Internal Rotation 3+ Fair+ Left Flexion 3 Fair Abduction (C5) 3 Fair External Rotation 3 Fair Internal Rotation 3 Fair PT-OP-Q Treatments Start: 08/07/23 12:20 Freq: Status: Active Protocol: Document 08/26/23 09:02 AM (Rec: 08/26/23 13:20 AM [id number]) Cardio Equipment Upper Body Ergometer (UBE) Duration (Minutes) 4 RPM 60 Therapeutic Exercises Supine Exercises shoulder ER Supine Exercise Name 1. AROM Side left Equipment Used added to HEP Reps/Minutes 10 reps AROM Serratus punch Supine Exercise Name reviewed Side bilateral Resistance AROM Reps/Minutes 2x10 Comments good form painfree Sitting Exercises Pulleys Sitting Exercise Name flexion Side bilateral Equipment Used use mirror for no UT recruitment feedback Reps/Minutes x1 min Standing Exercises Standing extension Side bilateral Resistance green Reps/Minutes 2x15 Comments cued taller posture Standing row Side bilateral Resistance green Reps/Minutes 2x15 Comments cued taller posture Manual Therapy Treatment Soft Tissue Mobilization R shoulder Body Location deltoid, biceps, UT, LS, pec Mobilization Type Rolling,Strumming,Sustained Pressure L shoulder Body Location Deltoid, biceps, UT, LS, teres major/min, pec Mobilization Type Rolling,Strumming,Sustained Pressure Joint Mobilizations GH Joint Lglenohumeral Direction inf, post Grade II Body Position Hooklying Manual Techniques PROM Type David shoulders, all directions Body Position Supine Comments increased time spent on L PT-OP-T Assessment and Plan Start: 08/07/23 12:20 Freq: Status: Active Protocol: Document 08/26/23 09:02 AM (Rec: 08/26/23 13:20 AM [id number]) Physical Therapy Assessment Goals Strength Impairment Pt with shoulder strength grossly at 3 to 3+/5 Short Term Goal (STG) Pt with shoulder strength grossly at 4-/5 bilaterally. STG Duration 09/04/23 [facility] Goal (LTG) Pt with shoulder strength grossly at 4/5 bilaterally. LTG Duration 10/02/23 ROM Impairment Pt with limited shoulder flexion and abduction ROM. Short Term Goal (STG) Pt with 10 deg improvement in shoulder flexion and abduction ROM. STG Duration 09/04/23 [employer] Goal (LTG) Pt with 15 deg improvement in shoulder flexion and abduction ROM bilaterally. LTG Duration 10/02/23 Quick Dash Impairment Pt with Quick Dash score of 43 % [employer] Goal (LTG) Pt with Quick Dash score of < 23%. LTG Duration 10/02/23 Sleep Impairment Pt reports that he is able to sleep 2 hours at a time Short Term Goal (STG) Pt to report that he is able to sleep for 4+ hours at a time. STG Duration 09/04/23 [facility] Goal (LTG) Pt to report that he is able to sleep for 6+ hours without disruption secondary to shoulder pain. LTG Duration 10/02/23 Assessment Summary Assessment Pt reported reduction of L UE pain at end of tx session today. Pt demonstrates limitations in strength and mobility into David ER, though no pain with manual PROM. Pt with improved tolerance to wall slide today, compared to previous session. Pt demonstrates gradual improvement in AROM david. Physical Therapy Plan Frequency and Duration Frequency of Treatment 2x/Week Duration of treatment (weeks) 8 Plan of Care Start Date 08/07/23 Plan of Care End Date 10/02/23 Therapeutic Interventions Therapeutic Interventions Coordination Training,Home Exercise Program,Manual Therapy,Neuromuscular Re- education,Patient/Caregiver Education,Self-Care/Home Management,Soft Tissue Mobilization,Taping, Therapeutic Activities, Therapeutic Exercises Modalities Cold Pack/Ice Massage,Electric Stimulation,Hot Packs, Ultrasound Next Visit Focus/Plan Next Note Type Treatment Note Next Visit Plan Progress scapular mobility and shoulder girdle strength as tolerated.
--- NOTE | 2023-08-28 09:47 | PT.OTN ---
Current Diagnoses Pain in unspecified shoulder (08/28/23) Physical Therapy Treatment Note PT-OP-A Visit Information Start: 08/07/23 12:20 Freq: Status: Active Protocol: Document 08/28/23 09:47 AM (Rec: 08/28/23 11:45 AM [id number]) Out-Patient Physical Therapy Visit Information Visit Information Visit Type Treatment Note Visit Start Time 09:47 Visit Stop Time 10:32 Total Visit Minutes 45 Visit Number 6 PT-OP-B Current Condition Start: 08/07/23 12:20 Freq: Status: Active Protocol: Document 08/07/23 12:21 AM (Rec: 08/07/23 13:03 AM [id number]) Current Condition History of Current Condition Onset Date 4 months ago Current Complaints bilateral upper arm pain and weakness History of Current Condition Pt reports bilateral upper arm pain. Pt reports L arm is worse than R. Pt reports that he had a booster shot and pain started a few days following. Pt is unsure if this was the cause of his pain. Pt reports that he feels that his strength has decreased at bilateral arms. Pt can do activities below 90 degrees with minimal pain, though increased pain with over 90 deg. Pt reports that he also has pain with sleeping. He sleeps on each side. Prior Functional Status Baseline Function- ADL's Independent Baseline Function- Mobility Independent Current Functional Impairments (Reported) Functional Limitations- ADL's painful, though able to do Functional Limitations- Recreation/ difficulty with gardening Hobbies secondary to pain. PT-OP-C Subjective Start: 08/07/23 12:20 Freq: Status: Active Protocol: Document 08/28/23 09:47 AM (Rec: 08/28/23 11:45 AM [id number]) OP-PT Subjective Patient Comments Patient Comments Pt reports that reading his newspaper continues to be most painful movement. Pt also reports intermittent pain with driving as well. PT-OP-K Range of Motion Start: 08/07/23 12:20 Freq: Status: Active Protocol: Document 08/26/23 09:02 AM (Rec: 08/26/23 13:20 AM [id number]) Shoulder Goniometric Range of Motion Shoulder Left Passive External Rotation at 45 degrees 60 Abduction Internal Rotation 70 Right Active Flexion 95 Abduction 130 Internal Rotation Behind Back (text) L1 Comments ER aply T2 Left Active Flexion 110 Abduction 115 Internal Rotation Behind Back (text) T12 Comments ER Apy: T2 PT-OP-L Special Tests Start: 08/07/23 12:20 Freq: Status: Active Protocol: Document 08/07/23 12:21 AM (Rec: 08/07/23 18:10 AM [id number]) Special Tests Shoulder Special Tests Empty Can Test Results Bilateral shoulders Elevation Impingement Test Results David shoulders PT-OP-M Strength Start: 08/07/23 12:20 Freq: Status: Active Protocol: Document 08/07/23 12:21 AM (Rec: 08/07/23 13:03 AM [id number]) Shoulder Strength Shoulder Manual Muscle Testing Right Flexion 3 Fair Abduction (C5) 3+ Fair+ External Rotation 3+ Fair+ Internal Rotation 3+ Fair+ Left Flexion 3 Fair Abduction (C5) 3 Fair External Rotation 3 Fair Internal Rotation 3 Fair PT-OP-Q Treatments Start: 08/07/23 12:20 Freq: Status: Active Protocol: Document 08/28/23 09:47 AM (Rec: 08/28/23 11:45 AM [id number]) Cardio Equipment Upper Body Ergometer (UBE) Duration (Minutes) 5 RPM 60 Seat Position 12 Therapeutic Exercises Supine Exercises Horizontal abduction Side bilateral Resistance AROM Reps/Minutes x10 shoulder ER Supine Exercise Name 1. AROM Side left Equipment Used added to HEP Reps/Minutes 2x10 Comments manually resisted Serratus punch Supine Exercise Name reviewed Side bilateral Resistance AROM Reps/Minutes 2x10 Comments good form painfree Sitting Exercises Pulleys Sitting Exercise Name flexion Side bilateral Equipment Used use mirror for no UT recruitment feedback Reps/Minutes x1 min Standing Exercises 3-way biceps Side bilateral Resistance 2# for neutral and supinated, 0# for pronated Reps/Minutes x10 Comments weakness with pronated biceps curl wall slide Side bilateral Reps/Minutes x10 Standing extension Side bilateral Resistance green>orange Reps/Minutes 2x10 Comments Pt with pain near L medial deltoid with this exercis Standing row Side bilateral Resistance green>orange Equipment Used dec resistance secondary to pain Reps/Minutes 2x10 Comments cued taller posture Manual Therapy Treatment Soft Tissue Mobilization L shoulder Body Location Deltoid, biceps, UT, LS, teres major/min, pec Mobilization Type Rolling,Strumming,Sustained Pressure Manual Techniques PROM Type David shoulders, all directions Body Position Supine Comments increased time spent on L PT-OP-T Assessment and Plan Start: 10/18/23 12:20 Freq: Status: Active Protocol: Document 08/28/23 09:47 AM (Rec: 08/28/23 11:45 AM [id number]) Physical Therapy Assessment Goals Strength Impairment Pt with shoulder strength grossly at 3 to 3+/5 Short Term Goal (STG) Pt with shoulder strength grossly at 4-/5 bilaterally. STG Duration 09/04/23 [employer] Goal (LTG) Pt with shoulder strength grossly at 4/5 bilaterally. LTG Duration 10/02/23 ROM Impairment Pt with limited shoulder flexion and abduction ROM. Short Term Goal (STG) Pt with 10 deg improvement in shoulder flexion and abduction ROM. STG Duration 09/04/23 [facility] Goal (LTG) Pt with 15 deg improvement in shoulder flexion and abduction ROM bilaterally. LTG Duration 10/02/23 Quick Dash Impairment Pt with Quick Dash score of 43 % [employer] Goal (LTG) Pt with Quick Dash score of < 23%. LTG Duration 10/02/23 Sleep Impairment Pt reports that he is able to sleep 2 hours at a time Short Term Goal (STG) Pt to report that he is able to sleep for 4+ hours at a time. STG Duration 09/04/23 [facility] Goal (LTG) Pt to report that he is able to sleep for 6+ hours without disruption secondary to shoulder pain. LTG Duration 10/02/23 Assessment Summary Assessment Pt demonstrates progression in mobility with flexion and abduction, though continues to be stiff into ER on L>R. Pt with weakness of ER musculature as well. Pt would benefit from continued PT to progress david shoulder functional mobility. Physical Therapy Plan Frequency and Duration Frequency of Treatment 2x/Week Duration of treatment (weeks) 8 Plan of Care Start Date 08/07/23 Plan of Care End Date 10/02/23 Therapeutic Interventions Therapeutic Interventions Coordination Training,Home Exercise Program,Manual Therapy,Neuromuscular Re- education,Patient/Caregiver Education,Self-Care/Home Management,Soft Tissue Mobilization,Taping, Therapeutic Activities, Therapeutic Exercises Modalities Cold Pack/Ice Massage,Electric Stimulation,Hot Packs, Ultrasound Next Visit Focus/Plan Next Note Type Progress Note Next Visit Plan Progress scapular mobility and shoulder girdle strength as tolerated.
--- NOTE | 2023-09-02 09:02 | PT.OTN ---
Current Diagnoses Pain in unspecified shoulder (09/02/23) Physical Therapy Treatment Note PT-OP-A Visit Information Start: 08/07/23 12:20 Freq: Status: Active Protocol: Document 09/02/23 09:02 AM (Rec: 09/02/23 11:32 AM [id number]) Out-Patient Physical Therapy Visit Information Visit Information Visit Type Progress Note Visit Start Time 09:02 Visit Stop Time 09:49 Total Visit Minutes 47 Visit Number 7 PT-OP-B Current Condition Start: 08/07/23 12:20 Freq: Status: Active Protocol: Document 08/07/23 12:21 AM (Rec: 08/07/23 13:03 AM [id number]) Current Condition History of Current Condition Onset Date 4 months ago Current Complaints bilateral upper arm pain and weakness History of Current Condition Pt reports bilateral upper arm pain. Pt reports L arm is worse than R. Pt reports that he had a booster shot and pain started a few days following. Pt is unsure if this was the cause of his pain. Pt reports that he feels that his strength has decreased at bilateral arms. Pt can do activities below 90 degrees with minimal pain, though increased pain with over 90 deg. Pt reports that he also has pain with sleeping. He sleeps on each side. Prior Functional Status Baseline Function- ADL's Independent Baseline Function- Mobility Independent Current Functional Impairments (Reported) Functional Limitations- ADL's painful, though able to do Functional Limitations- Recreation/ difficulty with gardening Hobbies secondary to pain. PT-OP-C Subjective Start: 08/07/23 12:20 Freq: Status: Active Protocol: Document 09/02/23 09:02 AM (Rec: 09/02/23 11:32 AM [id number]) OP-PT Subjective Patient Comments Patient Comments Pt reports that he has not been doing his exercises because his shoulder is sore. Pt reports that both shoulders kept him up last night. Pt reports that his shoulders have felt more sore over the weekend, though pt reports that he was doing lawn work including raking. Patient Reported Progress Worse PT-OP-K Range of Motion Start: 08/07/23 12:20 Freq: Status: Active Protocol: Document 09/02/23 09:02 AM (Rec: 09/02/23 11:32 AM [id number]) Shoulder Goniometric Range of Motion Shoulder Right Passive Flexion 153 Abduction 155 External Rotation at 45 degrees 60 Abduction Left Passive Flexion 152 Abduction 165 External Rotation at 45 degrees 60 Abduction Internal Rotation 70 Right Active Flexion 110 Abduction 130 Left Active Flexion 100 Abduction 110 Comments Pt compensates into scaption with flexion AROM PT-OP-L Special Tests Start: 08/07/23 12:20 Freq: Status: Active Protocol: Document 08/07/23 12:21 AM (Rec: 08/07/23 18:10 AM [id number]) Special Tests Shoulder Special Tests Empty Can Test Results Bilateral shoulders Elevation Impingement Test Results David shoulders PT-OP-M Strength Start: 08/07/23 12:20 Freq: Status: Active Protocol: Document 09/02/23 09:02 AM (Rec: 09/02/23 11:32 AM [id number]) Shoulder Strength Shoulder Manual Muscle Testing Right Flexion 3+ Fair+ Abduction (C5) 3+ Fair+ External Rotation 3+ Fair+ Internal Rotation 4- Good- Left Flexion 3 Fair Abduction (C5) 3 Fair External Rotation 3 Fair Internal Rotation 3+ Fair+ PT-OP-Q Treatments Start: 08/07/23 12:20 Freq: Status: Active Protocol: Document 09/02/23 09:02 AM (Rec: 09/02/23 11:32 AM [id number]) Cardio Equipment Upper Body Ergometer (UBE) Duration (Minutes) 5 RPM 60 Seat Position 12 Therapeutic Exercises Supine Exercises shoulder ER Side left Equipment Used added to HEP Reps/Minutes 2x10 Comments manually resisted by PT Sitting Exercises Pulleys Sitting Exercise Name flexion and abduction Side bilateral Reps/Minutes x1 min ea Standing Exercises IR/ER iso walkout Side bilateral Resistance Gregg TB Reps/Minutes x5 ea wa ea UE 3-way biceps Standing Exercise Name supinated biceps curl Side bilateral Equipment Used 5# Reps/Minutes x10 wall slide Side bilateral Reps/Minutes x10 Comments 1 at a time Standing extension Side bilateral Resistance orange Reps/Minutes 2x10 Comments no pain today Manual Therapy Treatment Manual Techniques PROM Type David shoulders, all directions Body Position Supine Comments increased time spent on L PT-OP-T Assessment and Plan Start: 08/07/23 12:20 Freq: Status: Active Protocol: Document 09/02/23 09:02 AM (Rec: 09/02/23 11:32 AM [id number]) Physical Therapy Assessment Goals Strength Impairment Pt with shoulder strength grossly at 3 to 3+/5 Short Term Goal (STG) Pt with shoulder strength grossly at 4-/5 bilaterally. 09/02/23: Pt with minimal gains in strength compared to IE. STG Duration 09/04/23 Halfway Goal (LTG) Pt with shoulder strength grossly at 4/5 bilaterally. LTG Duration 10/02/23 ROM Impairment Pt with limited shoulder flexion and abduction ROM. Short Term Goal (STG) Pt with 10 deg improvement in shoulder flexion and abduction ROM. 09/02/23: Pt demonstrates improved shoulder flexion and abduction ROM. STG Duration 09/04/23 Utility Clerk Goal (LTG) Pt with 15 deg improvement in shoulder flexion and abduction ROM bilaterally. LTG Duration 10/02/23 Quick Dash Impairment Pt with Quick Dash score of 43 % Utility Clerk Goal (LTG) Pt with Quick Dash score of < 23%. LTG Duration 10/02/23 Sleep Impairment Pt reports that he is able to sleep 2 hours at a time Short Term Goal (STG) Pt to report that he is able to sleep for 4+ hours at a time. 09/02/23: Pt able to sleep 2-3 hours before waking up secondary to pain. STG Duration 09/04/23 Utility Clerk Goal (LTG) Pt to report that he is able to sleep for 6+ hours without disruption secondary to shoulder pain. LTG Duration 10/02/23 Assessment Summary Assessment Pt brought a newspaper into tx session today to assess difficulty with reading the newspaper. Pt demonstrates weakness and ROM deficits into david shoulder ER, making it difficult for him to turn paper without compensation. Pt with difficulty maintaining neutral shoulder rotation with L shoulder iso walkouts. Pt demonstrates improved overall ROM since start of PT, though continues to have functional weakness at david shoulders. Pt educated on importance of progressing shoulder strength in non-painful ranges/motions to improve function. Pt also instructed to sleep on back to decrease stress on shoulders during sleep, which is primary complaint from pt. Pt would benefit from continued PT to progress shoulder mobility and strength as tolerated. Physical Therapy Plan Frequency and Duration Frequency of Treatment 2x/Week Duration of treatment (weeks) 8 Plan of Care Start Date 08/07/23 Plan of Care End Date 10/02/23 Therapeutic Interventions Therapeutic Interventions Coordination Training,Home Exercise Program,Manual Therapy,Neuromuscular Re- education,Patient/Caregiver Education,Self-Care/Home Management,Soft Tissue Mobilization,Taping, Therapeutic Activities, Therapeutic Exercises Modalities Cold Pack/Ice Massage,Electric Stimulation,Hot Packs, Ultrasound Next Visit Focus/Plan Next Note Type Progress Note Next Visit Plan Progress scapular mobility and shoulder girdle strength as tolerated.
--- NOTE | 2023-09-02 14:11 | PT.OPDS ---
Current Diagnoses Pain in unspecified shoulder (09/02/23) Visit Care Team Role Provider Type Garfield Monroy MD Family Provider Physician Primary Care Provider Specialty: Internal Medicine Address: [address] [place] [address], [id number] Email: [email or web address] Verma Attending Provider Advanced Smog Technician Referring Provider Specialty: Family Practice Address: [facility] [place], [address] Phone: Fax: Email: [email or web address] Visit Number Visit Number 7 Discharge Summary PT-OP-B Current Condition Start: 08/07/23 12:20 Freq: Status: Active Protocol: Document 08/07/23 12:21 AM (Rec: 08/07/23 13:03 AM [id number]) Current Condition History of Current Condition Onset Date 4 months ago Current Complaints bilateral upper arm pain and weakness History of Current Condition Pt reports bilateral upper arm pain. Pt reports L arm is worse than R. Pt reports that he had a booster shot and pain started a few days following. Pt is unsure if this was the cause of his pain. Pt reports that he feels that his strength has decreased at bilateral arms. Pt can do activities below 90 degrees with minimal pain, though increased pain with over 90 deg. Pt reports that he also has pain with sleeping. He sleeps on each side. Prior Functional Status Baseline Function- ADL's Independent Baseline Function- Mobility Independent Current Functional Impairments (Reported) Functional Limitations- ADL's painful, though able to do Functional Limitations- Recreation/ difficulty with gardening Hobbies secondary to pain. PT-OP-C Subjective Start: 08/07/23 12:20 Freq: Status: Active Protocol: Document 09/02/23 09:02 AM (Rec: 09/02/23 11:32 AM [id number]) OP-PT Subjective Patient Comments Patient Comments Pt reports that he has not been doing his exercises because his shoulder is sore. Pt reports that both shoulders kept him up last night. Pt reports that his shoulders have felt more sore over the weekend, though pt reports that he was doing lawn work including raking. Patient Reported Progress Worse PT-OP-K Range of Motion Start: 08/07/23 12:20 Freq: Status: Active Protocol: Document 09/02/23 09:02 AM (Rec: 09/02/23 11:32 AM [id number]) Shoulder Goniometric Range of Motion Shoulder Right Passive Flexion 153 Abduction 155 External Rotation at 45 degrees 60 Abduction Left Passive Flexion 152 Abduction 165 External Rotation at 45 degrees 60 Abduction Internal Rotation 70 Right Active Flexion 110 Abduction 130 Left Active Flexion 100 Abduction 110 Comments Pt compensates into scaption with flexion AROM PT-OP-L Special Tests Start: 08/07/23 12:20 Freq: Status: Active Protocol: Document 08/07/23 12:21 AM (Rec: 08/07/23 18:10 AM [id number]) Special Tests Shoulder Special Tests Empty Can Test Results Bilateral shoulders Elevation Impingement Test Results David shoulders PT-OP-M Strength Start: 08/07/23 12:20 Freq: Status: Active Protocol: Document 09/02/23 09:02 AM (Rec: 09/02/23 11:32 AM [id number]) Shoulder Strength Shoulder Manual Muscle Testing Right Flexion 3+ Fair+ Abduction (C5) 3+ Fair+ External Rotation 3+ Fair+ Internal Rotation 4- Good- Left Flexion 3 Fair Abduction (C5) 3 Fair External Rotation 3 Fair Internal Rotation 3+ Fair+ PT-OP-T Assessment and Plan Start: 08/07/23 12:20 Freq: Status: Active Protocol: Document 09/02/23 14:11 AM (Rec: 09/02/23 14:13 AM [id number]) Physical Therapy Assessment Progress Towards Goals Progress Towards Goals Slow Progress due to Activity Tolerance Physical Therapy Plan Discharge Physical Therapy Discharge Reasons Patient Request Discharge Comments Pt called after tx to request to cx future appointments because he feels that his shoulders are not improving. Pt would like to return to referring provider for further imaging. Pt was seen in PT for 7 visits. Pt demonstrated improved shoulder ROM during that time, though continued to demonstrate limitations in shoulder ER AROM required for functional activities and pain with sleep.
== END 2023-09-09 10:54 | disposition home or self-care (01) ==
LOC: PHYS 09:00
PROVIDERS: Family Provider Internal Medicine; PCP Internal Medicine; Referring Provider Nurse Practitioner Family; Visit Provider Nurse Practitioner Family
DX: M25.519 Pain in unspecified shoulder (principal)
CPT/HCPCS: 97110; 97140; 97161; 97535

== ENCOUNTER 2023-10-15 09:52 | Emergency (ER) | payer MEDICARE, OTHER, SELFPAY ==
[2019-01-06 15:57] VITALS: BMI 25.9
[2023-10-15] VITALS (11 sets, daily range): BP systolic 115–157; BP diastolic 57–71; PULSE 63–82; RESP 17–34; TEMP 36.8; O2SAT 94–98; BMI 26.6
[2023-10-15 10:30] LABS: Add Manual Diff / Slide Review NO; Basophils Absolute Auto 100 /uL (0-100); Basophils Percent Auto 0.6 % (0-2); Eosinophils Absolute Auto 100 /uL (0-450); Eosinophils Percent Auto 0.7 % (2-4); Hematocrit 31.4 % (41-53); Hemoglobin 10.7 g/dL (13.5-17.5); Lymphocytes Absolute Auto 900 /uL (1100-4500); Lymphocytes Percent Auto 9.1 % (25-40); Mean Corpuscular HGB Conc 34.1 % (30-36); Mean Corpuscular Hemoglobin 32.1 PG (26-34); Monocytes Absolute Auto 1100 /uL (0-900); Monocytes Percent Auto 10.8 % (3-14); Neutrophils Absolute Auto 8100 /uL (1500-7000); Neutrophils Percent Auto 78.8 % (50-75); Platelet Count 312 X10^3/uL (150-400); Red Blood Cell Count 3.34 X10^6/uL (4.5-5.9); Red Cell Distribution Width 13.4 % (11.6-14.8); White Blood Cell Count 10.3 X10^3/uL (4.5-11.0)
--- NOTE | 2023-10-15 10:44 | ED.ABDPAIN ---
HPI - Abdominal Pain General Chief Complaint: Abdominal Pain Stated Complaint: constipation, left shoulder px Time Seen by Provider: 10/15/23 10:22 Source: patient Mode of arrival: Ambulatory History of Present Illness HPI narrative: Patient is a 88-year-old noé male who has a history of prostate cancer, hypertension hyperlipidemia presenting today with abdominal pain. He reports for the last 5 days he has not been able to have a bowel movement. He has some cramping. He denies any nausea or vomiting. He has no chest pain or palpitations. He has not dizzy or lightheaded. He has had chronic ongoing left shoulder pain for a number of months he has been going to physical therapy. He has not had any change in medication for that. It does hurt whenever he moves it. His pain is not any worse today. Related Data Home Medications Medication Instructions Recorded Confirmed omega 0-jqb-fvx-fish oil 1,000 mg 3,000 mg PO DAILY 01/06/19 10/11/23 (120 mg-180 mg) capsule (Fish Oil) cholecalciferol (vitamin D3) 50 50 mcg PO DAILY 04/12/22 10/11/23 mcg (2,000 unit) capsule coenzyme Q10 100 mg capsule (Co 100 mg PO DAILY 04/12/22 10/11/23 Q-10) cyanocobalamin (vitamin B-12) 2,500 mcg sublingual DAILY 04/12/22 10/11/23 2,500 mcg sublingual tablet (Vitamin B-12) Previous Rx's Medication Instructions Recorded amlodipine 10 mg tablet 10 mg PO DAILY #90 tabs 05/01/23 lisinopril 20 mg tablet 20 mg PO DAILY #90 tabs 05/01/23 potassium chloride 10 mEq 10 meq PO DAILY #90 tabs 05/01/23 tablet,extended release(part/cryst) rosuvastatin 5 mg tablet (Crestor) 5 mg PO DAILY #90 tabs 05/01/23 Allergies Allergy/AdvReac Type Severity Reaction Status Date / Time No Known Drug Allergies Allergy Verified 10/11/23 08:09 Patient History Medical History (Updated 10/15/23 @ 13:44 by Karen Barbosa DO) History of prostate cancer Erectile dysfunction Mixed hyperlipidemia Essential hypertension Low back pain Hyperlipidemia Hypertension Surgical History S/P TURP Family History Father Dementia Social History household members: spouse Smoking Status: Never smoker alcohol intake: former Smoking Status: Never smoker alcohol intake frequency: a few times a week Substance Use Type: does not use Exam Initial Vital Signs Initial Vital Signs: Vital Signs Temperature 98.2 F 10/15/23 10:06 Pulse Rate 75 10/15/23 10:06 Respiratory Rate 18 10/15/23 10:06 Blood Pressure 143/62 H 10/15/23 10:06 Pulse Oximetry 98 10/15/23 10:06 Oxygen Delivery Method Room Air 10/15/23 10:06 GENERAL: Alert pleasant well-appearing 88-year-old male and in no acute distress. HEENT: Head atraumatic,EOMI, pupils reactive, face symmetric, moist] mucous membranes CARDIOVASCULAR: Regular rate and rhythm without murmurs, rubs or gallops. RESPIRATORY: Breath sounds equal bilaterally, no wheezes rales or rhonchi. ABDOMEN: Soft, mild diffuse tenderness no guarding no rebound no distention EXTREMITIES: Normal range of motion, no clubbing or edema. Neurovascularly intact NEUROLOGICAL: Alert and oriented x4. SKIN: Warm, dry, no laceration, no petechiae, no rashes or lesions. Course Orders Ordered: ED Orders 10/15/23 10:44 CT abdomen pelvis w con Stat Vital Signs Vital signs: Vital Signs - 8 hr 10/15/23 11:31 10/15/23 11:33 10/15/23 11:33 Pulse Rate 74 70 Respiratory Rate 19 Blood Pressure 157/71 H Pulse Oximetry 97 97 10/15/23 12:00 10/15/23 12:00 10/15/23 12:30 Pulse Rate 64 Respiratory Rate 18 Blood Pressure 124/59 L 118/61 Pulse Oximetry 95 10/15/23 12:30 10/15/23 13:00 10/15/23 13:00 Pulse Rate 63 63 Respiratory Rate 18 18 Blood Pressure 131/65 Pulse Oximetry 94 95 10/15/23 13:30 Pulse Rate 82 Respiratory Rate 34 H Blood Pressure Pulse Oximetry MDM - Abdominal Pain Lab Data 10/15/23 10:20 10/15/23 10:20 Labs: Lab Results 10/15/23 Range/Units 10:20 WBC 10.3 (4.5-11.0) X10^3/uL RBC 3.34 L (4.5-5.9) X10^6/uL Hgb 10.7 L (13.5-17.5) g/dL Hct 31.4 L (41-53) % MCV 94.0 (80-100) fL MCH 32.1 (26-34) PG MCHC 34.1 (30-36) % RDW 13.4 (11.6-14.8) % Plt Count 312 (150-400) X10^3/uL Neut % (Auto) 78.8 H (50-75) % Lymph % (Auto) 9.1 L (25-40) % Newberry % (Auto) 10.8 (3-14) % Eos % (Auto) 0.7 L (2-4) % Baso % (Auto) 0.6 (0-2) % Neut # (Auto) 8100 H (9039-1154) /uL Lymph # (Auto) 900 L (2635-2724) /uL Newberry # (Auto) 1100 H (0-900) /uL Eos # (Auto) 100 (0-450) /uL Baso # (Auto) 100 (0-100) /uL Sodium 136 L (137-145) mmol/L Potassium 4.1 (3.4-5.1) mmol/L Chloride 105 (98-107) mmol/L Carbon Dioxide 23 (22-32) mmol/L BUN 22 H (9-20) mg/dL Creatinine 0.78 (0.66-1.25) mg/dL Estimated GFR > 60 (>60) mL/min BUN/Creatinine Ratio 28.2 H (6-22) Glucose 123 H (80-110) mg/dL Calcium 9.8 (8.4-10.2) mg/dL Total Bilirubin 0.5 (0.2-1.3) mg/dL AST 26 (17-59) IU/L ALT 27 (<50) IU/L Alkaline Phosphatase 119 (38-126) U/L Total Protein 6.7 (6.3-8.2) g/dL Albumin 3.4 L (3.5-5.0) g/dL Globulin 3.3 (1.7-4.1) g/dL Albumin/Globulin Ratio 1.0 (1.0-2.8) Lipase 361 H (23-300) U/L Imaging Data CT scan - abdomen/pelvis: Radiologist's Impression: PROCEDURE: CT ABDOMEN PELVIS W CON INDICATIONS: ab pain all over constipation TECHNIQUE: After the administration of intravenous contrast, axial sections acquired from the lung bases to the pubic symphysis. Coronal and sagittal reformats were performed. For radiation dose reduction, the following was used: automated exposure control, adjustment of mA and/or kV according to patient size. COMPARISON: None. FINDINGS: Image quality: Diagnostic. Lower Chest: Small left pleural effusion with minimal left basilar atelectasis. Minimal right pleural effusion. ABDOMEN: Liver: Probable 2 cm metastatic lesion, segment 8 of right lobe of liver, image 22/2 and 45/4. There are other probable hepatic metastatic lesions, including 2 such lesions, which are quite vague, in the inferior aspect of the posterior segment of the right lobe, image 39/2, in segment 6 of the right lobe. Gallbladder: No radiopaque gallstones or wall thickening. Biliary ducts: No biliary dilation. Pancreas: No ductal dilation. Spleen: Size is within normal limits. Adrenal Glands: No adrenal nodules. Kidneys and Ureters: No hydronephrosis. No solid mass. No complex renal cystic lesion which requires follow up. Stomach and Bowel: There is a necrotic gas containing mass arising off of the fundus of the stomach. On image 28/2 it measures 9.9 x 6.1 cm. The appearance is most consistent with a necrotic mass and not an abscess. It measures approximately 5.6 cm in craniocaudal dimension. It appears to communicate potentially communicate with the lumen of the stomach. This is not definite. Normal colonic caliber, without significant wall thickening. Peritoneum: No abnormal intraperitoneal fluid. No free air. Ventral Wall: No hernia. Abdominal Nodes: No retroperitoneal or mesenteric adenopathy by size criteria. Vessels: Aorta and inferior vena cava are normal in size. PELVIS: Pelvic Organs: Unremarkable. Bladder: Unremarkable. Pelvic Nodes: No enlarged lymph nodes. Miscellaneous: There is a right inguinal hernia which contains bowel which may potentially be non reducible. There are no dilated or inflamed bowel loops. There is a fat containing left inguinal hernia. Bones: No aggressive osseous abnormality. Lumbar degenerative change. No lytic or blastic bony lesions. No compression fractures. IMPRESSION: 1. 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 This is less likely. Less likely than that is an abscess which is unrelated to malignancy. 2. The process involving the stomach can potentially be evaluated endoscopically. 3. Suspect multiple hepatic metastatic lesions. 4. Small left pleural effusion with left basilar atelectasis. Minimal right pleural effusion. Comment: Recommend GI referral for consideration for endoscopy. Dictated by: Eliel Giordano M.D. on 10/15/2023 at 11:46 Approved by: Eliel Giordano M.D. on 10/15/2023 at 11:53 ECG Data Interpretation: Normal sinus rhythm rate 71 CA interval 220 QRS [address] changes no T-wave inversion MDM Narrative Medical decision making narrative: Patient 88-year-old male presents today with ongoing abdominal pain feels like constipation for the last 5 days. Blood work is overall reassuring without leukocytosis he does have some anemia with a hemoglobin of 10.7/hematocrit 31.4. 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 1315 Dr. Lindsey, on-call surgery updated on patient's symptoms test results. At this time recommend treating for constipation MiraLax. She is reviewed this scan herself. Does recommend outpatient follow-up with oncology PCP and surgery Dr. Monroy's nurse updated on patient's test results they will be sure to follow-up with him. Patient is updated on his test results as well. 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 *Continue to take medications as directed MiraLax, take as directed once daily [id number] OR Magnesium citrate 150mL-300mL as needed for constipation *Follow up with your primary care provider in 2-3 days or call [phone] At this time I called and updated Dr. Monroy. You will need to see Oncology and get biopsy. Dr. Monroy's office should call you and set up an appointment, they are aware *Return to ER if you should have increasing pain dizziness lightheadedness, [or] any new, worsening or concerning symptoms Prescriptions: No Action amlodipine 10 mg tablet 10 mg PO DAILY Qty: 90 3RF lisinopril 20 mg tablet 20 mg PO DAILY Qty: 90 3RF potassium chloride 10 mEq tablet,ER particles/crystals 10 meq PO DAILY Qty: 90 3RF rosuvastatin [Crestor] 5 mg tablet 5 mg PO DAILY Qty: 90 3RF cyanocobalamin (vitamin B-12) [Vitamin B-12] 2,500 mcg tablet, sublingual 2,500 mcg sublingual DAILY cholecalciferol (vitamin D3) 50 mcg (2,000 unit) capsule 50 mcg PO DAILY coenzyme Q10 [Co Q-10] 100 mg capsule 100 mg PO DAILY omega 2-tru-cab-fish oil [Fish Oil] 1,000 mg (120 mg-180 mg) Capsule 3,000 mg PO DAILY Referrals: Garfield Monroy MD [Primary Care Provider] - Stand Alone Forms: Patient Portal/API
[2023-10-15 10:56] LABS: Alanine Aminotransferase 27 IU/L (<50); Albumin 3.4 g/dL (3.5-5.0); Alkaline Phosphatase 119 U/L (38-126); Aspartate Aminotransferase 26 IU/L (17-59); BUN Creatinine Ratio 28.2 (6-22); Bilirubin Total 0.5 mg/dL (0.2-1.3); Blood Urea Nitrogen 22 mg/dL (9-20); Calcium 9.8 mg/dL (8.4-10.2); Carbon Dioxide 23 mmol/L (22-32); Chloride 105 mmol/L (98-107); Estimated Glomerular Filt Rate > 60 mL/min (>60); Globulin 3.3 g/dL (1.7-4.1); Glucose 123 mg/dL (80-110); HEMOLYSIS < 15 (0-50); Lipase 361 U/L (23-300); Potassium 4.1 mmol/L (3.4-5.1); Sodium 136 mmol/L (137-145); Total Protein 6.7 g/dL (6.3-8.2)
== END 2023-10-15 13:54 | disposition home or self-care (01) ==
PROVIDERS: Emergency Provider Emergency Medicine; Family Provider Internal Medicine; PCP Internal Medicine
DX: C16.9 Malignant neoplasm of stomach, unspecified (principal); K59.00 Constipation, unspecified
CPT/HCPCS: 36415; 74177; 80053; 83690; 85025; 93005; 99284

== ENCOUNTER 2023-11-25 12:20 | Emergency (ER) | payer MEDICARE, OTHER, SELFPAY ==
[2019-01-06 15:57] VITALS: BMI 25.9
[2023-11-25 12:22] VITALS: BP 154/60; PULSE 20; RESP 18; TEMP 36.4; O2SAT 99; BMI 25.8
--- NOTE | 2023-11-25 13:37 | ED_ITS ---
HPI - Extremity Injury (Upper) <Kike Soto PA-C - Last Filed: 11/25/23 15:09> General Chief Complaint: Extremity Injury, Upper Stated Complaint: 2 bum shoulders barely lift the left Time Seen by Provider: 11/25/23 12:44 Source: patient Mode of arrival: Ambulatory History of Present Illness HPI narrative: 88-year-old male with past medical history GERD, inguinal hernia, history of prostate cancer, hyperlipidemia, hypertension, recently diagnosed with GIST cancer presents to the ED with bilateral shoulder pain with left being worse than the right. Patient presented to the ED on 10/15/2023 with bilateral shou lder pain as well as abdominal pain, diagnosed with a GIST cancer and referred to Oncology. Patient is here today for worsening shoulder pain. Patient is being followed by [facility] for the just cancer. Patient reports some shoulder trauma when he fell a year ago, however no trauma since then. Patient complains of pain when he tries to abduct his left shoulder. Patient also complains of pain in the right shoulder, however it is not as severe as the left. Patient reports sporadic numbness in both arms. Denies weakness, tingling. Patient states that he was seen by an ortho specialist, was given some exercises which exacerbated his problem. Last time he saw ortho was 6 weeks ago. Patient states that he has not had any imaging done on his shoulder. Patient has had extensive imaging since he had the cancer diagnosis, including chest imaging. Patient denies any other symptoms including chest pain, shortness of breath. Related Data Home Medications Medication Instructions Recorded Confirmed omega 2-efk-uen-fish oil 1,000 mg 3,000 mg PO DAILY 01/06/19 10/16/23 (120 mg-180 mg) capsule (Fish Oil) cholecalciferol (vitamin D3) 50 50 mcg PO DAILY 04/12/22 10/16/23 mcg (2,000 unit) capsule coenzyme Q10 100 mg capsule (Co 100 mg PO DAILY 04/12/22 10/16/23 Q-10) cyanocobalamin (vitamin B-12) 2,500 mcg sublingual DAILY 04/12/22 10/16/23 2,500 mcg sublingual tablet (Vitamin B-12) Previous Rx's Medication Instructions Recorded amlodipine 10 mg tablet 10 mg PO DAILY #90 tabs 05/01/23 lisinopril 20 mg tablet 20 mg PO DAILY #90 tabs 05/01/23 potassium chloride 10 mEq 10 meq PO DAILY #90 tabs 05/01/23 tablet,extended release(part/cryst) rosuvastatin 5 mg tablet (Crestor) 5 mg PO DAILY #90 tabs 05/01/23 omeprazole 20 mg capsule,delayed 20 mg PO DAILY #90 caps 10/16/23 release Allergies Allergy/AdvReac Type Severity Reaction Status Date / Time No Known Drug Allergies Allergy Verified 10/16/23 12:32 Review of Systems <Kike Soto PA-C - Last Filed: 11/25/23 15:09> Constitutional Constitutional: Denies chills, Denies fatigue, Denies fever(s), Denies frequent falls, Denies lethargy and Denies weakness Eyes Eyes: Denies change in vision, Denies eye discharge, Denies irritation and Denies loss of vision ENT Ears, Nose, Mouth, and Throat: Denies change in voice, Denies dizziness, Denies neck pain, Denies sore throat and Denies throat swelling Cardiovascular Cardiovascular: Denies chest pain, Denies irregular heart rhythm, Denies lightheadedness, Denies palpitations, Denies dyspnea, Denies dyspnea on exertion and Denies orthopnea Respiratory Respiratory: Denies cough, Denies dyspnea, Denies dyspnea on exertion and Denies wheezing Gastrointestinal Gastrointestinal: Denies abdominal pain, Denies change in bowel habits, Denies diarrhea, Denies nausea and Denies vomiting Musculoskeletal Musculoskeletal: Denies neck pain and Denies numbness Comments: Bilateral shoulder pain Integumentary/Breasts Skin/Breast: Denies pruritus, Denies erythema, Denies rash and Denies wounds Neurologic Neurologic: Denies behavioral changes, Denies confusion, Denies dizziness, Denies frequent falls, Denies loss of vision, Denies numbness and Denies weakness Psychiatric Psychiatric: Denies anxiety, Denies behavioral changes, Denies confusion, Denies depression, Denies homicidal ideation and Denies suicidal ideation Endocrine Endocrine: Denies fatigue, Denies flushing and Denies palpitations Hematologic/Lymphatic Hematologic/Lymphatic: Denies easy bruising Allergic/Immunologic Allergic/Immunologic: Denies urticaria, Denies throat swelling and Denies wheezing Patient History <Kike Soto PA-C - Last Filed: 11/25/23 15:09> Medical History Hoarseness of voice Right inguinal hernia GERD without esophagitis Cancer, metastatic to liver Slow transit constipation History of prostate cancer Erectile dysfunction Mixed hyperlipidemia Essential hypertension Low back pain Surgical History S/P TURP Family History Father Dementia Social History household members: spouse Smoking Status: Never smoker alcohol intake: former Smoking Status: Never smoker alcohol intake frequency: 0-2 drinks per day Alcohol type: wine Substance Use Type: does not use Exam <Kike Soto PA-C - Last Filed: 11/25/23 15:09> Narrative Exam Narrative: Const General:?cooperative, healthy appearing and comfortable HENOK Head:?normal to inspection Ears:?hearing grossly normal bilaterally Nose:?external nose normal Face and sinus:?normal facial exam and sinuses nontender Mouth:?oral mucosae normal Throat:?posterior oropharynx normal Eyes General:?appearance normal, both eyes and all related structures Neck Neck:?normal visual inspection and no lymphadenopathy noted Resp Effort & Inspection:?normal respiratory effort Auscultation:?clear to auscultation bilaterally Cardio Rate:?regular rate Rhythm:?regular rhythm Musculoskeletal No swelling, tenderness to palpation, erythema. Patient does exhibit limited range of motion due to pain. Neurovascularly intact. Neuro General:?patient alert, patient awake and patient oriented x3 Initial Vital Signs Initial Vital Signs: Vital Signs Temperature 97.6 F 11/25/23 12:22 Pulse Rate 20 L 11/25/23 12:22 Respiratory Rate 18 11/25/23 12:22 Blood Pressure 154/60 H 11/25/23 12:22 Pulse Oximetry 99 11/25/23 12:22 Oxygen Delivery Method Room Air 11/25/23 12:22 <Irish Cintron DO - Last Filed: 11/25/23 19:58> Initial Vital Signs Initial Vital Signs: Vital Signs Temperature 97.6 F 11/25/23 12:22 Pulse Rate 20 L 11/25/23 12:22 Respiratory Rate 18 11/25/23 12:22 Blood Pressure 154/60 H 11/25/23 12:22 Pulse Oximetry 99 11/25/23 12:22 Oxygen Delivery Method Room Air 11/25/23 12:22 Course <Kike Soto PA-C - Last Filed: 11/25/23 15:09> Orders Ordered: ED Orders 11/25/23 13:43 XR shoulder LT min 2V Stat XR shoulder RT min 2V Stat Vital Signs Vital signs: Vital Signs - 8 hr 11/25/23 12:22 11/25/23 14:21 Temperature 97.6 F Pulse Rate 20 L 63 Respiratory Rate 18 18 Blood Pressure 154/60 H 140/67 Pulse Oximetry 99 100 Oxygen Delivery Method Room Air Room Air <Irish Cintron DO - Last Filed: 11/25/23 19:58> Orders Ordered: ED Orders 11/25/23 13:43 XR shoulder LT min 2V Stat XR shoulder RT min 2V Stat Vital Signs Vital signs: Vital Signs - 8 hr 11/25/23 12:22 11/25/23 14:21 Temperature 97.6 F Pulse Rate 20 L 63 Respiratory Rate 18 18 Blood Pressure 154/60 H 140/67 Pulse Oximetry 99 100 Oxygen Delivery Method Room Air Room Air MDM - Extremity Injury (Upper) <Kike Soto PA-C - Last Filed: 11/25/23 15:09> MDM Narrative Medical decision making narrative: 88-year-old male with past medical history GERD, inguinal hernia, history of prostate cancer, hyperlipidemia, hypertension, recently diagnosed with GIST cancer presents to the ED with bilateral shoulder pain with left being worse than the right. Concern for fracture/dislocation versus musculoskeletal sprain/strain versus other. Obtained bilateral shoulder x-rays which shows left-sided calcium deposits in the rotator cuff, right-sided exostosis of the right humerus. No other acute findings. Discussed findings with patient. Recommend Tylenol, ibuprofen for discomfort. Discussed positioning a pillow in the armpit to sleep. Discussed gradual abduction of arm along the back of a chair as tolerable. Recommend follow-up with PCP as soon as possible. ED return precautions discussed with patient. Patient verbalized understanding. Medical records reviewed: Yes Discharge Plan Departure Patient Disposition: Home Clinical Impression: Bilateral shoulder pain Qualifiers: Chronicity: acute Qualified Code(s): M25.511 - Pain in right shoulder Instructions: DI for Calcific Tendonitis of the Shoulder Activity Restrictions/Additional Instructions: You were evaluated in the ED today for shoulder pain. Your x-ray showed no fractures or dislocation, however there does appear to be some calcium deposits in the rotator cuff of the left shoulder. This might be causing your symptoms. You may take ibuprofen 400 mg 3 times a day and 1000 mg of Tylenol 3 times a day for the pain. You may also sleep with a pillow under your left armpit, and also extending your arm along the back of the sofa when you are sitting down. Please follow-up with your PCP as soon as possible for further evaluation. Return to the ED if you have worsening symptoms, numbness, tingling, weakness. Prescriptions: No Action amlodipine 10 mg tablet 10 mg PO DAILY Qty: 90 3RF lisinopril 20 mg tablet 20 mg PO DAILY Qty: 90 3RF potassium chloride 10 mEq tablet,ER particles/crystals 10 meq PO DAILY Qty: 90 3RF rosuvastatin [Crestor] 5 mg tablet 5 mg PO DAILY Qty: 90 3RF cyanocobalamin (vitamin B-12) [Vitamin B-12] 2,500 mcg tablet, sublingual 2,500 mcg sublingual DAILY cholecalciferol (vitamin D3) 50 mcg (2,000 unit) capsule 50 mcg PO DAILY coenzyme Q10 [Co Q-10] 100 mg capsule 100 mg PO DAILY omeprazole 20 mg capsule,delayed release(DR/EC) 20 mg PO DAILY Qty: 90 3RF omega 9-mlp-mos-fish oil [Fish Oil] 1,000 mg (120 mg-180 mg) Capsule 3,000 mg PO DAILY Referrals: Garfield Monroy MD [Primary Care Provider] - Stand Alone Forms: Patient Portal/API ED Sign-out <Irish Cintron DO - Last Filed: 11/25/23 19:58> Cosign ED Attending Alejandraature Attestation: I was immediately available in the department for consultation.
--- NOTE | 2023-11-25 13:43 | DI.RAD.S_ITS ---
PROCEDURE: XR SHOULDER RT MIN 2V INDICATIONS: Shoulder pain TECHNIQUE: 3 views of the shoulder were acquired. COMPARISON: None. FINDINGS: Bones: No fractures or dislocations. No suspicious bony lesions. Visualized ribs appear intact. Probable exostosis involving the proximal femur. Soft tissues: No suspicious soft tissue calcifications. IMPRESSION: No acute fracture. No osseous lesion. If symptoms and/or clinical suspicion for pathology persist, further assessment with repeat, or advanced imaging (e.g., CT, MRI, or bone scan) may be helpful for further assessment. Dictated by: Adrienne iMn M.D. on 11/25/2023 at 14:16 Approved by: Adrienne Min M.D. on 11/25/2023 at 14:16
--- NOTE | 2023-11-25 13:43 | DI.RAD.S_ITS ---
PROCEDURE: XR SHOULDER LT MIN 2V INDICATIONS: Shoulder pain TECHNIQUE: 3 views of the shoulder were acquired. COMPARISON: None. FINDINGS: Bones: No fractures or dislocations. No suspicious bony lesions. Visualized ribs appear intact. Soft tissues: Calcification of the rotator cuff.. IMPRESSION: No acute fracture. No osseous lesion. If symptoms and/or clinical suspicion for pathology persist, further assessment with repeat, or advanced imaging (e.g., CT, MRI, or bone scan) may be helpful for further assessment. Dictated by: Adrienne Min M.D. on 11/25/2023 at 14:16 Approved by: Adrienne Min M.D. on 11/25/2023 at 14:17
[2023-11-25 14:21] VITALS: BP 140/67; PULSE 63; RESP 18; O2SAT 100
== END 2023-11-25 14:49 | disposition home or self-care (01) ==
PROVIDERS: Emergency Provider Student in an Organized Health Care Education/Training Program; Family Provider Internal Medicine; PCP Internal Medicine
DX: M25.512 Pain in left shoulder (principal); M25.511 Pain in right shoulder
CPT/HCPCS: 73030; 99283

== ENCOUNTER 2023-12-17 16:35 | Emergency (ER) | payer MEDICARE, OTHER, SELFPAY ==
[2019-01-06 15:57] VITALS: BMI 25.9
[2023-12-17 16:53] VITALS: BP 108/58; PULSE 85; RESP 18; TEMP 36.4; O2SAT 99; BMI 25.8
--- NOTE | 2023-12-17 17:02 | DI.RAD.S_ITS ---
PROCEDURE: XR CHEST 1V INDICATIONS: chest pain TECHNIQUE: One view of the chest was acquired. COMPARISON: None. FINDINGS: Surgical changes and devices: None. Lungs and pleura: Lungs are clear. No pleural effusions or pneumothorax. Mediastinum: Mediastinal contours appear normal. Heart size is normal. Bones and chest wall: No suspicious bony lesions. Overlying soft tissues appear unremarkable. IMPRESSION: No acute cardiopulmonary abnormality is seen. Dictated by: Volodymyr Hussein M.D. on 12/17/2023 at 18:15 Approved by: Volodymyr Hussein M.D. on 12/17/2023 at 18:15
[2023-12-17 17:59] LABS: Add Manual Diff / Slide Review NO; Basophils Absolute Auto 0 /uL (0-100); Basophils Percent Auto 0.2 % (0-2); Eosinophils Absolute Auto 200 /uL (0-450); Eosinophils Percent Auto 2.4 % (2-4); Hematocrit 32.8 % (41-53); Hemoglobin 10.7 g/dL (13.5-17.5); Lymphocytes Absolute Auto 1000 /uL (1100-4500); Mean Corpuscular HGB Conc 32.7 % (30-36); Mean Corpuscular Hemoglobin 28.7 PG (26-34); Mean Corpuscular Volume 87.8 fL (80-100); Monocytes Absolute Auto 400 /uL (0-900); Monocytes Percent Auto 5.8 % (3-14); Neutrophils Absolute Auto 5800 /uL (1500-7000); Neutrophils Percent Auto 78.6 % (50-75); Platelet Count 354 X10^3/uL (150-400); Red Blood Cell Count 3.73 X10^6/uL (4.5-5.9); Red Cell Distribution Width 15.2 % (11.6-14.8); White Blood Cell Count 7.3 X10^3/uL (4.5-11.0)
[2023-12-17 18:11] LABS: Alanine Aminotransferase 22 IU/L (<50); Albumin 3.7 g/dL (3.5-5.0); Albumin Globulin Ratio 1.3 (1.0-2.8); Alkaline Phosphatase 51 U/L (38-126); Aspartate Aminotransferase 26 IU/L (17-59); BUN Creatinine Ratio 18.4 (6-22); Bilirubin Total 0.5 mg/dL (0.2-1.3); Blood Urea Nitrogen 23 mg/dL (9-20); Calcium 8.8 mg/dL (8.4-10.2); Carbon Dioxide 20 mmol/L (22-32); Chloride 109 mmol/L (98-107); Creatine Kinase 85 U/L (55-170); Estimated Glomerular Filt Rate 56 mL/min (>60); Globulin 2.8 g/dL (1.7-4.1); Glucose 164 mg/dL (80-110); HEMOLYSIS < 15 (0-50); Lipase 87 U/L (23-300); Magnesium 2.1 mg/dL (1.6-2.3); Potassium 4.1 mmol/L (3.4-5.1); Sodium 137 mmol/L (137-145); Total Protein 6.5 g/dL (6.3-8.2)
[2023-12-17 18:22] LABS: Troponin I 0.063 ng/mL (0.01-0.034)
[2023-12-17 18:38] LABS: Prothrombin Time 11.7 SECONDS (9.4-12.5)
[2023-12-17 18:39] LABS: Influenza A - CEPHEID Flu A NEGATIVE (NEGATIVE); Influenza B - CEPHEID Flu B NEGATIVE (NEGATIVE); Respiratory Syncytial Virus Negative (Negative)
[2023-12-17 18:40] LABS: PTT Partial Thromboplastin Tim 29 SECONDS (25.1-36.5)
[2023-12-17 18:59] LABS: COVID-19 CEPHEID 4-PLEX PCR Negative (Negative)
--- NOTE | 2023-12-17 19:50 | ED.FALL ---
HPI - Fall General Chief Complaint: Fall Stated Complaint: fall, bruised ribs taking medication for cancer Time Seen by Provider: 12/17/23 19:32 Source: patient and family Mode of arrival: Ambulatory History of Present Illness HPI Narrative: Patient is an 88-year-old male. He is on chemotherapy. Has a rash because of the chemotherapy. Yesterday took Benadryl in the afternoon and then in the evening to try to help with the itching. He states that it did improve his symptoms. This morning he tried to get out of bed and became somewhat weak and fell and hit his left flank/back. It took him a while to get up off the floor but he was able to do this and was able to get into bed on his own and then slept until early afternoon. He denies hitting his head. Reports no other injuries from the event. He states he has discomfort on his left flank and left back was concerned about his ribs. Related Data Home Medications Medication Instructions Recorded Confirmed omega 9-wbr-lxm-fish oil 1,000 mg 3,000 mg PO DAILY 01/06/19 12/05/23 (120 mg-180 mg) capsule (Fish Oil) cholecalciferol (vitamin D3) 50 50 mcg PO DAILY 04/12/22 12/05/23 mcg (2,000 unit) capsule coenzyme Q10 100 mg capsule (Co 100 mg PO DAILY 04/12/22 12/05/23 Q-10) cyanocobalamin (vitamin B-12) 2,500 mcg sublingual DAILY 04/12/22 12/05/23 2,500 mcg sublingual tablet (Vitamin B-12) imatinib 400 mg tablet 400 mg PO DAILY 12/03/23 12/05/23 Previous Rx's Medication Instructions Recorded amlodipine 10 mg tablet 10 mg PO DAILY #90 tabs 11/28/23 lisinopril 20 mg tablet 20 mg PO DAILY #90 tabs 11/28/23 omeprazole 20 mg capsule,delayed 20 mg PO DAILY #90 caps 11/28/23 release potassium chloride 10 mEq 10 meq PO DAILY #90 tabs 11/28/23 tablet,extended release(part/cryst) rosuvastatin 5 mg tablet (Crestor) 5 mg PO DAILY #90 tabs 11/28/23 Allergies Allergy/AdvReac Type Severity Reaction Status Date / Time No Known Drug Allergies Allergy Verified 12/17/23 16:53 Review of Systems Constitutional Constitutional: Reports system reviewed and no additional complaints, except as documented Cardiovascular Cardiovascular: Reports system reviewed and no additional complaints, except as documented Respiratory Respiratory: Reports system reviewed and no additional complaints, except as documented Integumentary/Breasts Skin/Breast: Reports system reviewed and no additional complaints, except as documented Patient History Medical History Resting tremor Gastrointestinal stromal tumor (GIST) of stomach Hoarseness of voice Right inguinal hernia GERD without esophagitis Cancer, metastatic to liver Slow transit constipation History of prostate cancer Erectile dysfunction Mixed hyperlipidemia Essential hypertension Low back pain Surgical History S/P TURP Family History Father Dementia Social History household members: spouse Smoking Status: Never smoker alcohol intake: former Smoking Status: Never smoker alcohol intake frequency: 0-2 drinks per day Alcohol type: wine Substance Use Type: does not use Exam Initial Vital Signs Initial Vital Signs: Vital Signs Temperature 97.5 F L 12/17/23 16:53 Pulse Rate 85 12/17/23 16:53 Respiratory Rate 18 12/17/23 16:53 Blood Pressure 108/58 L 12/17/23 16:53 Pulse Oximetry 99 12/17/23 16:53 Oxygen Delivery Method Room Air 12/17/23 16:53 Const General: cooperative, comfortable and No ill appearing HENMT Head: normal to inspection and normocephalic Chest Other: Mild discomfort to the left-sided flank and lower ribs. Resp Effort & Inspection: normal respiratory effort Auscultation: clear to auscultation bilaterally Cardio Rate: regular rate Rhythm: regular rhythm Neuro General: patient alert, patient awake and moves all extremities Course Orders Ordered: ED Orders 12/17/23 17:50 Complete Blood Count AUTO DIFF Stat Comprehensive Metabolic Panel Stat Lipase Stat Magnesium Stat PTT Partial Thromboplastin Luke Stat Prothrombin Time INR Stat Troponin & CK Cardiac Panel Stat 12/17/23 17:58 Covid-19 + FLU A/B + RSV - PCR Stat Discontinued Medications Aspirin (Aspirin 81 Mg Chew Tab) 324 mg PO NOW ONE Stop: 12/17/23 17:03 Last Admin: 12/17/23 17:21 Dose: Not Given Documented By: SHER Vital Signs Vital signs: Vital Signs - 8 hr 12/17/23 16:53 Temperature 97.5 F L Pulse Rate 85 Respiratory Rate 18 Blood Pressure 108/58 L Pulse Oximetry 99 Oxygen Delivery Method Room Air MDM - Fall Lab Data Attestation: I reviewed the patient's lab results. 12/17/23 17:50 12/17/23 17:50 Labs: Lab Results 12/17/23 12/17/23 Range/Units 17:50 17:58 WBC 7.3 (4.5-11.0) X10^3/uL RBC 3.73 L (4.5-5.9) X10^6/uL Hgb 10.7 L (13.5-17.5) g/dL Hct 32.8 L (41-53) % MCV 87.8 (80-100) fL MCH 28.7 (26-34) PG MCHC 32.7 (30-36) % RDW 15.2 H (11.6-14.8) % Plt Count 354 (150-400) X10^3/uL Neut % (Auto) 78.6 H (50-75) % Lymph % (Auto) 13.0 L (25-40) % [place] % (Auto) 5.8 (3-14) % Eos % (Auto) 2.4 (2-4) % Baso % (Auto) 0.2 (0-2) % Neut # (Auto) 5800 (5528-0590) /uL Lymph # (Auto) 1000 L (0526-8964) /uL [place] # (Auto) 400 (0-900) /uL Eos # (Auto) 200 (0-450) /uL Baso # (Auto) 0 (0-100) /uL PT 11.7 (9.4-12.5) SECONDS INR 1.0 (0.9-1.3) APTT 29 (25.1-36.5) SECONDS Sodium 137 (137-145) mmol/L Potassium 4.1 (3.4-5.1) mmol/L Chloride 109 H (98-107) mmol/L Carbon Dioxide 20 L (22-32) mmol/L BUN 23 H (9-20) mg/dL Creatinine 1.25 (0.66-1.25) mg/dL Estimated GFR 56 L (>60) mL/min BUN/Creatinine Ratio 18.4 (6-22) Glucose 164 H (80-110) mg/dL Calcium 8.8 (8.4-10.2) mg/dL Magnesium 2.1 (1.6-2.3) mg/dL Total Bilirubin 0.5 (0.2-1.3) mg/dL AST 26 (17-59) IU/L ALT 22 (<50) IU/L Alkaline Phosphatase 51 (38-126) U/L Total Creatine Kinase 85 (55-170) U/L Troponin I 0.063 H (0.01-0.034) ng/mL Total Protein 6.5 (6.3-8.2) g/dL Albumin 3.7 (3.5-5.0) g/dL Globulin 2.8 (1.7-4.1) g/dL Albumin/Globulin Ratio 1.3 (1.0-2.8) Lipase 87 (23-300) U/L SARS-CoV-2 (PCR) Negative (Negative) Influenza A (RT-PCR) Flu a negative (NEGATIVE) Influenza B (RT-PCR) Flu b negative (NEGATIVE) RSV (PCR) Negative (Negative) Imaging Data Chest x-ray: Radiologist's Impression: PROCEDURE: XR CHEST 1V INDICATIONS: chest pain TECHNIQUE: One view of the chest was acquired. COMPARISON: None. FINDINGS: Surgical changes and devices: None. Lungs and pleura: Lungs are clear. No pleural effusions or pneumothorax. Mediastinum: Mediastinal contours appear normal. Heart size is normal. Bones and chest wall: No suspicious bony lesions. Overlying soft tissues appear unremarkable. IMPRESSION: No acute cardiopulmonary abnormality is seen. ECG Data Attestation: I personally reviewed and interpreted this ECG as follows: Interpretation: Sinus rhythm Ventricular rate 81 Left axis deviation No ST T wave changes MDM Narrative Medical decision making narrative: Lungs are clear. Vital signs unremarkable. X-ray shows no rib fractures although there is a possibility of a nondisplaced fracture versus a rib contusion. I discuss this with the patient. We discussed the use of Benadryl. Will have him cut this dose in half has the full dose seems to affect him make him very drowsy. We discussed return precautions to include signs of pneumonia and worsening respiratory status. No indication for admission to the hospital. He was given return precautions. He expressed understanding and agreement. Discharge Plan Departure Patient Disposition: Home Clinical Impression: Contusion of rib on left side Instructions: DI for Rib Contusion Activity Restrictions/Additional Instructions: You can take Tylenol for any discomfort. Continue to take the rest of your medications as directed. Return to the emergency department for new symptoms. Prescriptions: No Action amlodipine 10 mg tablet 10 mg PO DAILY Qty: 90 3RF lisinopril 20 mg tablet 20 mg PO DAILY Qty: 90 3RF potassium chloride 10 mEq tablet,ER particles/crystals 10 meq PO DAILY Qty: 90 3RF rosuvastatin [Crestor] 5 mg tablet 5 mg PO DAILY Qty: 90 3RF omeprazole 20 mg capsule,delayed release(DR/EC) 20 mg PO DAILY Qty: 90 3RF cyanocobalamin (vitamin B-12) [Vitamin B-12] 2,500 mcg tablet, sublingual 2,500 mcg sublingual DAILY cholecalciferol (vitamin D3) 50 mcg (2,000 unit) capsule 50 mcg PO DAILY coenzyme Q10 [Co Q-10] 100 mg capsule 100 mg PO DAILY imatinib 400 mg tablet 400 mg PO DAILY omega 5-lds-zkm-fish oil [Fish Oil] 1,000 mg (120 mg-180 mg) Capsule 3,000 mg PO DAILY Referrals: Garfield Monroy MD [Primary Care Provider] - Stand Alone Forms: Patient Portal/API
--- NOTE | 2023-12-17 20:13 | PC.NURSE ---
pt discharged prior to nurse evaluation. Pt evaluated by provider. pt states he fell twice this morning, no prolonged down time, no LOC, no thinners, no hitting head. pt had taken benadryl twice and was feeling loopy from this and when consulting his Rx found the dosage to be twice as much as he thought (50mg instead of 24mg).
== END 2023-12-17 20:13 | disposition home or self-care (01) ==
PROVIDERS: Emergency Medicine; Emergency Provider Emergency Medicine; Family Provider Internal Medicine; PCP Internal Medicine
DX: S20.212A Contusion of left front wall of thorax, initial encounter (principal); W18.30XA Fall on same level, unspecified, initial encounter
CPT/HCPCS: 0241U; 36415; 71045; 80053; 82550; 83690; 83735; 84484; 85025; 85610; 85730; 93005; 99281; 99284

== ENCOUNTER → 2024-01-30 09:35 | Outpatient (CLI) | payer MEDICARE, OTHER, SELFPAY ==
[2019-01-06 15:57] VITALS: BMI 25.9
[2024-01-30 10:29] LABS: Alanine Aminotransferase 17 IU/L (<50); Albumin 3.9 g/dL (3.5-5.0); Albumin Globulin Ratio 1.6 (1.0-2.8); Alkaline Phosphatase 53 U/L (38-126); Aspartate Aminotransferase 25 IU/L (17-59); BUN Creatinine Ratio 28.4 (6-22); Bilirubin Total 0.5 mg/dL (0.2-1.3); Blood Urea Nitrogen 29 mg/dL (9-20); Calcium 9.2 mg/dL (8.4-10.2); Carbon Dioxide 22 mmol/L (22-32); Chloride 113 mmol/L (98-107); Estimated Glomerular Filt Rate > 60 mL/min (>60); Globulin 2.4 g/dL (1.7-4.1); Glucose 88 mg/dL (80-110); HEMOLYSIS < 15 (0-50); Sodium 143 mmol/L (137-145); Total Protein 6.3 g/dL (6.3-8.2)
[2024-01-30 10:40] LABS: Add Manual Diff / Slide Review NO; Basophils Absolute Auto 0 /uL (0-100); Eosinophils Absolute Auto 100 /uL (0-450); Eosinophils Percent Auto 3.1 % (2-4); Hematocrit 30.7 % (41-53); Hemoglobin 10.1 g/dL (13.5-17.5); Lymphocytes Absolute Auto 1200 /uL (1100-4500); Lymphocytes Percent Auto 29.9 % (25-40); Mean Corpuscular Hemoglobin 30.5 PG (26-34); Mean Corpuscular Volume 92.4 fL (80-100); Monocytes Absolute Auto 500 /uL (0-900); Monocytes Percent Auto 13.5 % (3-14); Neutrophils Absolute Auto 2000 /uL (1500-7000); Neutrophils Percent Auto 52.5 % (50-75); Platelet Count 268 X10^3/uL (150-400); Red Blood Cell Count 3.32 X10^6/uL (4.5-5.9); Red Cell Distribution Width 21.5 % (11.6-14.8); White Blood Cell Count 3.9 X10^3/uL (4.5-11.0)
[2024-01-30 14:00] LABS: Anisocytosis 1+
== END ==
PROVIDERS: Emergency Medicine; Family Provider Internal Medicine; PCP Internal Medicine; Referring Provider Internal Medicine; Visit Provider Internal Medicine
DX: C49.A0 Gastrointestinal stromal tumor, unspecified site (principal)
CPT/HCPCS: 36415; 80053; 85025

== ENCOUNTER → 2024-02-19 11:58 | Outpatient (CLI) | payer MEDICARE, OTHER, SELFPAY ==
[2019-01-06 15:57] VITALS: BMI 25.9
[2024-02-14 15:37] VITALS: BMI 25.9
--- NOTE | 2024-02-19 12:32 | DI.MRI.S_ITS ---
PROCEDURE: MR SHOULDER LT WO CON INDICATIONS: rotator cuff tear or rupture of left shoulder TECHNIQUE: Noncontrast oblique coronal T2 fast spin echo with fat saturation, oblique sagittal T1 spin echo and T2 fast spin echo with fat saturation, axial T1 spin echo and T2 fast spin echo with fat saturation through the shoulder. COMPARISON: [facility], CR, XR SHOULDER LT MIN 2V, 11/25/2023, 13:53. FINDINGS: Image quality: Excellent. Rotator cuff: Full-thickness tearing of the supraspinatus and infraspinatus tendons from their distal insertions with medial tendon retraction beyond the glenoid rim. There is moderate atrophy and grade 2-3 fatty infiltration of the supraspinatus and infraspinatus muscles. Superimposed edema may indicate low-grade strains. Teres minor tendon is intact. There is high-grade partial articular sided tearing of the subscapularis tendon at the superior insertion superimposed on chronic tendinosis. Mild edema is seen in the medial subscapularis muscle. Bones and bursae: No acute trabecular bone injury or fracture. Humeral head is high riding and abuts the undersurface of the acromion. There is mild degenerative spurring in the glenoid rim. Moderate degenerative changes are seen at the acromioclavicular joint with subchondral cystic changes and small marginal osteophytes. A moderate glenohumeral effusion is seen that communicates with the subacromial/subdeltoid bursa. Capsule and soft tissues: Diffuse labral degeneration and chronic degenerative tearing. Proximal biceps long head tendon demonstrates moderate to severe tendinosis and partial intrasubstance tearing without significant subluxation. Glenohumeral ligaments are grossly intact. IMPRESSION: 1. Complete tearing of the distal supraspinatus and infraspinatus tendons from their distal insertions with a proximal tendon retraction beyond the level of the glenoid rim. There is moderate atrophy and grade 2-3 fatty infiltration of the supraspinatus and infraspinatus muscles. Humeral head is high-riding and abuts the undersurface of the acromion. 2. High-grade partial articular sided tearing of the subscapularis tendon at the superior insertion superimposed on chronic tendinosis. 3. Mild edema within the rotator cuff musculature may indicate superimposed low-grade muscle strains. 4. Partial intrasubstance tearing of the proximal biceps long head tendon superimposed on moderate to severe tendinosis. 5. Mild glenohumeral osteoarthrosis. Diffuse labral degeneration. 6. Moderate acromioclavicular joint osteoarthrosis. 7. Moderate glenohumeral effusion communicates with the subacromial/subdeltoid bursa. Approved by: Jonnie Chambers M.D. on 02/19/2024 at 15:44
== END ==
PROVIDERS: Family Provider Internal Medicine; PCP Internal Medicine; Referring Provider Orthopaedic Surgery; Visit Provider Orthopaedic Surgery
DX: M75.122 Complete rotator cuff tear or rupture of left shoulder, not specified as traumatic; S46.112A Strain of muscle, fascia and tendon of long head of biceps, left arm, initial encounter; M19.012 Primary osteoarthritis, left shoulder; M25.412 Effusion, left shoulder
CPT/HCPCS: 73221

== ENCOUNTER → 2024-02-24 13:21 | Outpatient (CLI) | payer MEDICARE, OTHER, SELFPAY ==
[2024-02-14 15:37] VITALS: BMI 25.9
[2024-02-24 16:18] LABS: BUN Creatinine Ratio 23.3 (6-22); Blood Urea Nitrogen 28 mg/dL (9-20); Calcium 9.2 mg/dL (8.4-10.2); Carbon Dioxide 26 mmol/L (22-32); Chloride 106 mmol/L (98-107); Estimated Glomerular Filt Rate 59 mL/min (>60); Glucose 93 mg/dL (80-110); HEMOLYSIS < 15 (0-50); Potassium 4.1 mmol/L (3.4-5.1); Sodium 138 mmol/L (137-145)
== END ==
LOC: LAB 13:22
PROVIDERS: Family Provider Internal Medicine; PCP Internal Medicine; Referring Provider Internal Medicine; Visit Provider Internal Medicine
DX: R60.9 Edema, unspecified (principal)
CPT/HCPCS: 36415; 80048

== ENCOUNTER → 2024-04-09 09:19 | Outpatient (CLI) | payer MEDICARE, OTHER, SELFPAY ==
[2024-02-14 15:37] VITALS: BMI 25.9
[2024-04-09 10:43] LABS: Add Manual Diff / Slide Review NO; Basophils Absolute Auto 0 /uL (0-100); Eosinophils Absolute Auto 100 /uL (0-450); Eosinophils Percent Auto 2.7 % (2-4); Hematocrit 32.2 % (41-53); Hemoglobin 10.9 g/dL (13.5-17.5); Lymphocytes Absolute Auto 1200 /uL (1100-4500); Lymphocytes Percent Auto 33.7 % (25-40); Mean Corpuscular HGB Conc 33.9 % (30-36); Mean Corpuscular Hemoglobin 32.8 PG (26-34); Mean Corpuscular Volume 96.9 fL (80-100); Monocytes Absolute Auto 400 /uL (0-900); Neutrophils Absolute Auto 1900 /uL (1500-7000); Neutrophils Percent Auto 52.6 % (50-75); Platelet Count 201 X10^3/uL (150-400); Red Blood Cell Count 3.32 X10^6/uL (4.5-5.9); Red Cell Distribution Width 15.1 % (11.6-14.8); White Blood Cell Count 3.7 X10^3/uL (4.5-11.0)
[2024-04-09 11:01] LABS: Alanine Aminotransferase 16 IU/L (<50); Albumin 4.1 g/dL (3.5-5.0); Albumin Globulin Ratio 1.7 (1.0-2.8); Alkaline Phosphatase 50 U/L (38-126); Aspartate Aminotransferase 27 IU/L (17-59); BUN Creatinine Ratio 21.7 (6-22); Bilirubin Total 0.5 mg/dL (0.2-1.3); Blood Urea Nitrogen 28 mg/dL (9-20); Calcium 8.8 mg/dL (8.4-10.2); Carbon Dioxide 23 mmol/L (22-32); Chloride 112 mmol/L (98-107); Estimated Glomerular Filt Rate 54 mL/min (>60); Globulin 2.4 g/dL (1.7-4.1); Glucose 108 mg/dL (80-110); HEMOLYSIS < 15 (0-50); Potassium 4.7 mmol/L (3.4-5.1); Sodium 141 mmol/L (137-145); Total Protein 6.5 g/dL (6.3-8.2)
== END ==
PROVIDERS: Family Provider Internal Medicine; PCP Internal Medicine; Referring Provider Internal Medicine; Visit Provider Internal Medicine
DX: C49.A0 Gastrointestinal stromal tumor, unspecified site (principal)
CPT/HCPCS: 36415; 80053; 85025

== ENCOUNTER → 2024-08-10 11:54 | Outpatient (CLI) | payer MEDICARE, OTHER, SELFPAY ==
[2024-02-14 15:37] VITALS: BMI 25.9
[2024-08-10 12:54] LABS: Hematocrit 29.8 % (41-53); Hemoglobin 10.2 g/dL (13.5-17.5); Mean Corpuscular HGB Conc 34.1 % (30-36); Mean Corpuscular Hemoglobin 34.4 PG (26-34); Platelet Count 196 X10^3/uL (150-400); Red Blood Cell Count 2.96 X10^6/uL (4.5-5.9); Red Cell Distribution Width 13.6 % (11.6-14.8); White Blood Cell Count 4.4 X10^3/uL (4.5-11.0)
[2024-08-10 13:23] LABS: Alanine Aminotransferase 16 IU/L (<50); Albumin 4.2 g/dL (3.5-5.0); Alkaline Phosphatase 41 U/L (38-126); Aspartate Aminotransferase 25 IU/L (17-59); BUN Creatinine Ratio 20.8 (6-22); Bilirubin Total 0.5 mg/dL (0.2-1.3); Blood Urea Nitrogen 32 mg/dL (9-20); Calcium 9.1 mg/dL (8.4-10.2); Carbon Dioxide 23 mmol/L (22-32); Chloride 109 mmol/L (98-107); Cholesterol 119 mg/dL (140-199); Estimated Glomerular Filt Rate 43 mL/min (>60); Globulin 2.1 g/dL (1.7-4.1); Glucose 95 mg/dL (80-110); HDL Cholesterol 58 mg/dL (40-60); HEMOLYSIS < 15 (0-50); LDL Cholesterol Calculated 37 mg/dL (<100); Potassium 4.4 mmol/L (3.4-5.1); Sodium 141 mmol/L (137-145); Total Protein 6.3 g/dL (6.3-8.2); Triglycerides 119 mg/dL (35-150)
[2024-08-10 13:42] LABS: TSH w/ Reflex to FT4 1.53 uIU/mL (0.47-4.68)
== END ==
PROVIDERS: Family Provider Internal Medicine; PCP Internal Medicine; Referring Provider Internal Medicine; Visit Provider Internal Medicine
DX: Z85.46 Personal history of malignant neoplasm of prostate (principal); E78.2 Mixed hyperlipidemia; I10 Essential (primary) hypertension
CPT/HCPCS: 36415; 80053; 80061; 84443; 85027

== ENCOUNTER → 2024-08-21 09:55 | Outpatient (CLI) | payer MEDICARE, OTHER, SELFPAY ==
[2024-02-14 15:37] VITALS: BMI 25.9
[2024-08-21 10:57] LABS: Blood Urea Nitrogen 17 mg/dL (9-20); Calcium 8.8 mg/dL (8.4-10.2); Carbon Dioxide 21 mmol/L (22-32); Chloride 111 mmol/L (98-107); Estimated Glomerular Filt Rate 58 mL/min (>60); Glucose 103 mg/dL (80-110); HEMOLYSIS < 15 (0-50); Potassium 4.2 mmol/L (3.4-5.1); Sodium 139 mmol/L (137-145)
== END ==
PROVIDERS: Family Provider Internal Medicine; PCP Internal Medicine; Referring Provider Internal Medicine; Visit Provider Internal Medicine
DX: R89.9 Unspecified abnormal finding in specimens from other organs, systems and tissues (principal); E87.8 Other disorders of electrolyte and fluid balance, not elsewhere classified; I10 Essential (primary) hypertension; E78.2 Mixed hyperlipidemia; I87.2 Venous insufficiency (chronic) (peripheral); C49.A0 Gastrointestinal stromal tumor, unspecified site; K21.9 Gastro-esophageal reflux disease without esophagitis; C78.7 Secondary malignant neoplasm of liver and intrahepatic bile duct
CPT/HCPCS: 36415; 80048

== ENCOUNTER → 2025-03-18 08:51 | Outpatient (CLI) | payer MEDICARE, OTHER, SELFPAY ==
[2024-02-14 15:37] VITALS: BMI 25.9
--- NOTE | 2025-03-18 08:52 | DI.CT.S_ITS ---
PROCEDURE: CT CHEST ABD PEL W CON INDICATIONS: Gastrointestinal stormal tumor TECHNIQUE: After the administration of intravenous contrast, 5 mm thick sections acquired from the lung apices to the symphysis. 5 mm coronal and sagittal reformats were performed, with additional 7 mm MIP reformats through the lungs. For radiation dose reduction, the following was used: automated exposure control, adjustment of mA and/or kV according to patient size. COMPARISON: [facility], CT, CT ABDOMEN PELVIS W CON, 10/15/2023, 11:22. FINDINGS: Image quality: Excellent. CHEST: Lower Neck: No enlarged lymph nodes. Thyroid: Normal CT appearance. Axillae: No enlarged lymph nodes. Chest Wall: No suspicious chest wall mass. Lungs and Pleura: Occasional, widely scattered micro nodules in the upper lungs and along the fissures. Pleural-based 3 mm nodule laterally in the left upper lobe, 2/158, is largest. No acute ground-glass opacities or consolidations. Central and peripheral airways are normal without bronchial wall thickening or bronchiectasis. No pleural effusion or pleural plaquing. Heart: Heart size is normal. No pericardial effusion. Heavy coronary artery calcification. Thoracic Vessels: The aorta and pulmonary arteries demonstrate normal size. Mediastinum and Jana: No enlarged lymph nodes. Esophagus: No wall thickening. No hiatal hernia. ABDOMEN: Liver: Several small, well-defined hypodensities throughout the liver, one of the largest in segment seven measures about 2.2 cm. No peripheral enhancement. No suspicious enhancing liver mass. Gallbladder: No wall thickening or calcified stones. Biliary ducts: No biliary dilation. Pancreas: Normal size and morphology without visible ductal dilatation or inflammation. Spleen: Size is within normal limits. Adrenal Glands: Subcentimeter low-density nodule along the lateral limb of the right adrenal gland too small to characterize. No other adrenal nodules. Kidneys and Ureters: Symmetric enhancement. No nephrolithiasis or hydronephrosis. No visible mass or cyst requiring follow up. No hydroureter. Cortical cysts in the left kidney. Stomach and Bowel: Abnormal plaque-like low-density thickening of the greater curvature in the proximal stomach. This hypodense mass appears to protrude from the stomach anteriorly and inferiorly. No adherence to adjacent organs although it is in close proximity to the pancreatic tail. Bowel loops including appendix are otherwise normal. Peritoneum: No abnormal intraperitoneal fluid. No free air. Ventral Wall: No significant ventral hernia. Abdominal Nodes: No retroperitoneal or mesenteric adenopathy by size criteria. Vessels: The abdominal aorta, IVC, and portal vein are of normal caliber. Moderate abdominal aortic atherosclerotic calcification. Partially occlusive soft atherosclerotic plaque in the mid right common iliac artery. PELVIS: Pelvic Organs: Prostatectomy versus extremely diminutive gland. Bladder: Partially filled urinary bladder but with prominent wall thickening along the anterior margin, possibly due to decompression. Pelvic Nodes: No enlarged lymph nodes. Miscellaneous: Moderate-size fat containing right inguinal hernia. Bones: No aggressive osseous abnormality. Severe disc degeneration L4-5. 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 No involvement of adjacent organs. The mass has considerably decreased since 2022. Hypodensities in the liver appear well-defined. Differential diagnosis is most likely benign, hemangiomas or cysts. Treated metastatic disease cannot be excluded. Stable low-density right adrenal nodule, most likely benign adenoma. Partially filled urinary bladder with anterior wall thickening. Correlate with UA Dictated by: Melissa Bedoya M.D. on 03/19/2025 at 12:48 Approved by: Melissa Bedoya M.D. on 03/19/2025 at 13:06
[2025-03-18 09:17] LABS: Estimated Glomerular Filt Rate 52 mL/min (>60)
== END ==
PROVIDERS: Radiology Diagnostic Radiology; Family Provider Internal Medicine; PCP Internal Medicine; Visit Provider Internal Medicine
DX: C49.A0 Gastrointestinal stromal tumor, unspecified site (principal); D44.11 Neoplasm of uncertain behavior of right adrenal gland; R91.8 Other nonspecific abnormal finding of lung field; I25.10 Atherosclerotic heart disease of native coronary artery without angina pectoris; N28.1 Cyst of kidney, acquired; I70.0 Atherosclerosis of aorta; K40.90 Unilateral inguinal hernia, without obstruction or gangrene, not specified as recurrent; M51.369 Other intervertebral disc degeneration, lumbar region without mention of lumbar back pain or lower extremity pain; Z85.46 Personal history of malignant neoplasm of prostate
CPT/HCPCS: 36415; 71260; 74177; 82565; Q9967

== ENCOUNTER → 2025-03-25 11:53 | Outpatient (CLI) | payer MEDICARE, OTHER, SELFPAY ==
[2024-02-14 15:37] VITALS: BMI 25.9
[2025-03-25 12:23] LABS: Add Manual Diff / Slide Review NO; Basophils Absolute Auto 0 /uL (0-100); Basophils Percent Auto 0.9 % (0-2); Eosinophils Absolute Auto 300 /uL (0-450); Eosinophils Percent Auto 5.7 % (2-4); Hematocrit 34.9 % (41-53); Hemoglobin 11.9 g/dL (13.5-17.5); Lymphocytes Absolute Auto 1500 /uL (1100-4500); Lymphocytes Percent Auto 33.6 % (25-40); Mean Corpuscular HGB Conc 34.1 % (30-36); Mean Corpuscular Hemoglobin 34.2 PG (26-34); Mean Corpuscular Volume 100.1 fL (80-100); Monocytes Absolute Auto 500 /uL (0-900); Neutrophils Absolute Auto 2100 /uL (1500-7000); Neutrophils Percent Auto 47.8 % (50-75); Platelet Count 215 X10^3/uL (150-400); Red Blood Cell Count 3.49 X10^6/uL (4.5-5.9); Red Cell Distribution Width 13.9 % (11.6-14.8); White Blood Cell Count 4.4 X10^3/uL (4.5-11.0)
[2025-03-25 13:09] LABS: Alanine Aminotransferase 20 IU/L (<50); Albumin 4.5 g/dL (3.5-5.0); Albumin Globulin Ratio 2.1 (1.0-2.8); Alkaline Phosphatase 42 U/L (38-126); Aspartate Aminotransferase 33 IU/L (17-59); BUN Creatinine Ratio 16.9 (6-22); Bilirubin Total 0.7 mg/dL (0.2-1.3); Blood Urea Nitrogen 21 mg/dL (9-20); Calcium 9.4 mg/dL (8.4-10.2); Carbon Dioxide 22 mmol/L (22-32); Chloride 104 mmol/L (98-107); Estimated Glomerular Filt Rate 56 mL/min (>60); Globulin 2.1 g/dL (1.7-4.1); Glucose 93 mg/dL (70-99); HEMOLYSIS < 15 (0-50); Potassium 4.1 mmol/L (3.4-5.1); Sodium 138 mmol/L (137-145); Total Protein 6.6 g/dL (6.3-8.2)
== END ==
PROVIDERS: Emergency Medicine; Family Provider Internal Medicine; PCP Internal Medicine; Referring Provider Internal Medicine; Visit Provider Internal Medicine
DX: C49.A0 Gastrointestinal stromal tumor, unspecified site (principal)
CPT/HCPCS: 36415; 80053; 85025

== ENCOUNTER → 2025-03-30 16:30 | Outpatient (CLI) | payer MEDICARE, OTHER, SELFPAY ==
[2024-02-14 15:37] VITALS: BMI 25.9
[2025-03-30 17:12] LABS: C-Reactive Protein Quant < 0.5 mg/dL (<1.0)
[2025-03-30 17:13] LABS: Erythrocyte Sedimentation Rate 21 MM/HR (0-15)
== END ==
PROVIDERS: Family Provider Internal Medicine; PCP Internal Medicine; Referring Provider Internal Medicine; Visit Provider Internal Medicine
DX: M35.3 Polymyalgia rheumatica (principal)
CPT/HCPCS: 36415; 85651; 86140

== ENCOUNTER → 2025-04-20 15:03 | Outpatient (CLI) | payer MEDICARE, OTHER, SELFPAY ==
[2024-02-14 15:37] VITALS: BMI 25.9
--- NOTE | 2025-04-20 15:07 | DI.MRI.S_ITS ---
PROCEDURE: MR STROKE Pre- and post-contrast brain MRI, non-contrast brain MR angiogram, pre- and postcontrast neck MR angiogram INDICATIONS: tia TECHNIQUE: Brain: Noncontrast axial T1 spin echo, axial T2 fast spin echo, sagittal and axial FLAIR, coronal T2 fast spin echo, axial gradient echo, axial diffusion and ADC through the brain. After the administration of contrast, axial 3D VIBE of the cranial vasculature and brain. Brain MRA: Non-contrast 3-D time of flight MR angiogram, with multiple jwnoead-ksrhxoxno-qifuzykicw (MIP) reformats performed. Neck MRA: Axial and sagittal TruFISP through the neck. Coronal dynamic MR angiogram during administration of contrast in the arterial and venous phases, with 3- dimenstional woywgag-ddxaetezg-mtjninjoym (MIP) reformats constructed from subtraction images. COMPARISON: None. FINDINGS: Image quality: Excellent. BRAIN: The ventricular system and cortical sulci demonstrate atrophy, consistent for the patient's stated age. There are areas of increased T2/FLAIR signal intensity within the periventricular and subcortical white matter. There is no acute intra-or extra axial fluid collection. No acute hemorrhage, mass lesion or midline shift. Brainstem is unremarkable. There are no areas of restricted diffusion. Globes are symmetrical. Sinuses are aerated. Osseous structures are intact. BRAIN MR ANGIOGRAM: Anterior circulation: Intracranial internal carotid arteries are normal in size and enhancement. The flow within the paired anterior cerebral arteries is normal and symmetric. The flow within the middle cerebral arteries is normal and symmetric. The anterior communicating artery is seen. No stenoses, occlusions, or aneurysms. Posterior circulation: The visualized portions of the vertebral arteries demonstrate normal caliber, and join to form a normal appearing basilar artery. The flow within the posterior cerebral arteries is normal and symmetric. No stenoses, occlusions, or aneurysms. Left vertebral artery dominance. NECK MR ANGIOGRAM: Carotids: Great vessels demonstrate a conventional anatomy as they arise from the aortic arch. The origins of the common carotid arteries appear patent. The calibers and courses of both common carotid arteries are normal. The bifurcation regions appear normal bilaterally. The internal carotid arteries demonstrate normal course and caliber. Posterior circulation: The origins of the vertebral arteries appear patent. More superior portions of both vertebral arteries demonstrate normal course and caliber, and join to form a normal appearing basilar artery. Miscellaneous: Subclavian arteries appear patent. Pre-contrast images through the neck show no soft tissue abnormalities. IMPRESSION: 1. No acute intracranial process. 2. Moderate atrophy and chronic microvascular ischemic changes. 3. No areas of hemodynamically significant stenosis, vascular occlusion or aneurysmal dilation within the anterior circulation. 4. No areas of hemodynamically significant stenosis, vascular occlusion or aneurysmal dilation within the posterior circulation. 5. No areas of hemodynamically significant stenosis, vascular occlusion or aneurysmal dilation within the neck vasculature. Dictated by: Roseanna Hancock M.D. on 04/20/2025 at 21:16 Approved by: Roseanna Hancock M.D. on 04/20/2025 at 21:17
== END ==
PROVIDERS: Family Provider Internal Medicine; PCP Internal Medicine; Referring Provider Internal Medicine; Visit Provider Internal Medicine
DX: I67.9 Cerebrovascular disease, unspecified (principal); G45.9 Transient cerebral ischemic attack, unspecified
CPT/HCPCS: 70544; 70549; 70553; A9579

== ENCOUNTER → 2025-05-06 10:46 | Outpatient (CLI) | payer MEDICARE, OTHER, SELFPAY ==
[2024-02-14 15:37] VITALS: BMI 25.9
[2025-05-06 18:16] LABS: Blood Urea Nitrogen 28 mg/dL (9-20); Calcium 8.9 mg/dL (8.4-10.2); Carbon Dioxide 24 mmol/L (22-32); Chloride 104 mmol/L (98-107); Cholesterol 141 mg/dL (140-199); Estimated Glomerular Filt Rate 56 mL/min (>60); Glucose 117 mg/dL (70-99); HDL Cholesterol 87 mg/dL (40-60); HEMOLYSIS < 15 (0-50); Potassium 4.2 mmol/L (3.4-5.1); Sodium 137 mmol/L (137-145); Triglycerides 62 mg/dL (35-150)
[2025-05-06 18:44] LABS: TSH w/ Reflex to FT4 1.06 uIU/mL (0.47-4.68)
[2025-05-06 19:10] LABS: Vitamin B12 Reflex MMA if <400 577 pg/mL (239-931)
== END ==
PROVIDERS: PCP Internal Medicine; Referring Provider Internal Medicine; Visit Provider Internal Medicine
DX: E78.2 Mixed hyperlipidemia (principal); E53.8 Deficiency of other specified B group vitamins
CPT/HCPCS: 36415; 80048; 80061; 82607; 84443; 84450